=== PATIENT | male | born 1945 | race Caucasian/White ===

== ENCOUNTER 2016-12-18 10:10 | Inpatient (IN) | payer MEDICARE, BC ==
[2016-12-18 12:15] LABS: Glucose,Whole Blood 123 mg/dL (75-99)
[2016-12-18] MEDS ORDERED: MAGNESIUM OXIDE 250 MG TAB PO STA (13:14)
[2016-12-18] MEDS ORDERED: LIDOCAINE 1% INJ 10MG/ML (20 ML MDV) ONE (13:45)
[2016-12-18] MEDS ORDERED: MAGNESIUM SULFATE-D5W PMX 1 GM in DEXTROSE/WATER 1 100ML.BAG IVPB ONE (14:00)
[2016-12-18 16:36] LABS: ALT 34 U/L (21-72); AST 27 U/L (17-59); Alkaline Phosphatase 67 U/L (38-126); Anion Gap 14 mmol/L; Blood Urea Nitrogen 32 mg/dL (9-20); Calcium 9.2 mg/dL (8.4-10.2); Carbon Dioxide 29 mmol/L (22-30); Chloride 102 mmol/L (98-107); Glucose 142 mg/dL (74-99); Non-African American GFR(MDRD) >60 (>60 ml/min/1.73 sqM); Potassium 4.9 mmol/L (3.5-5.1); Sodium 145 mmol/L (137-145); Total Bilirubin 1.1 mg/dL (0.2-1.3); Total Protein 7.8 g/dL (6.3-8.2)
[2016-12-18 16:38] LABS: Basophils # (A) 0.1 k/uL (0-0.2); Basophils % (A) 1 %; CH 27.2; CHCM 29.5; Eosinophils # (A) 0.3 k/uL (0-0.7); Eosinophils % (A) 3 %; HCT 39.9 % (39.0-53.0); Hypochromasia Marked; Luc # (Auto) 0.17; Luc % (Auto) 2; Lymphocytes # (A) 1.7 k/uL (1.0-4.8); Lymphocytes % (A) 23 %; MCH 27.8 pg (25.0-35.0); MCV 92.7 fL (80.0-100.0); Mean Platelet Volume 9.3; Monocytes # (A) 0.5 k/uL (0-1.0); Monocytes % (A) 6 %; Neutrophils # (A) 4.8 k/uL (1.3-7.7); Neutrophils % (A) 65 %; RDW 15.4 % (11.5-15.5); WBC 7.4 k/uL (3.8-10.6); WBC (Perox) 7.29
[2016-12-18 17:21] LABS: Glucose,Whole Blood 100 mg/dL (75-99)
[2016-12-18] MEDS ORDERED: DOFETILIDE 500 MCG CAP PO STA (17:31)
[2016-12-18 17:41] LABS: Manual Review Performed
[2016-12-18 21:27] LABS: Glucose,Whole Blood 99 mg/dL (75-99)
[2016-12-18] MEDS: METOPROLOL TARTRATE 50 MG TAB PO SCH (21:50)
[2016-12-19] MEDS ORDERED: DOFETILIDE 500 MCG CAP PO ONE (06:00)
[2016-12-19 06:32] LABS: Glucose,Whole Blood 133 mg/dL (75-99)
[2016-12-19 06:41] LABS: Anion Gap 8 mmol/L; Blood Urea Nitrogen 28 mg/dL (9-20); Carbon Dioxide 30 mmol/L (22-30); Chloride 104 mmol/L (98-107); Glucose 130 mg/dL (74-99); Magnesium 1.8 mg/dL (1.6-2.3); Non-African American GFR(MDRD) >60 (>60 ml/min/1.73 sqM); Potassium 4.7 mmol/L (3.5-5.1); Sodium 142 mmol/L (137-145)
[2016-12-19] MEDS: ATORVASTATIN 80 MG TAB PO SCH (07:30)
[2016-12-19] MEDS: FUROSEMIDE 20 MG TAB PO SCH (07:30)
[2016-12-19] MEDS: glipiZIDE 5 MG TAB PO SCH (07:31)
[2016-12-19] MEDS: LOSARTAN 50 MG TAB PO SCH (07:31)
[2016-12-19] MEDS: RIVAROXABAN 10 MG TAB PO SCH (07:31)
[2016-12-19] MEDS ORDERED: MAGNESIUM OXIDE 250 MG TAB PO SCH (09:00)
[2016-12-19] MEDS: METOPROLOL TARTRATE 50 MG TAB PO SCH (09:54)
[2016-12-19 12:02] LABS: Glucose,Whole Blood 123 mg/dL (75-99)
[2016-12-19] MEDS ORDERED: MAGNESIUM OXIDE 250 MG TAB PO STA (13:26)
[2016-12-19] MEDS ORDERED: SPIRONOLACTONE 25 MG TAB PO SCH (13:30)
--- NOTE | 2016-12-19 14:25 | P.PN ---
Subjective Patient doing well. Complaint of tiredness and fatigue. Very frequent PVCs and ventricular couplets and nonsustained arrhythmias one episode of light torsade within 2 hours of administration of dofetilide within 2 hours of the first dose. He has had multiform nonsustained ventricular tachycardia noted Patient received 2 doses of dofetilide is QT interval still within normal limits Vitals are stable Blood pressures mildly elevated though Breath sounds are decreased bilaterally Heart sounds were slow normal but irregular Increased BMI Significant lower extremity induration Impression Symptomatic persistent atrial fibrillation with associated atrial fibrillation mediated cardio myopathy Frequent PVCs ventricular couplets and nonsustained ventricular tachycardia often polymorphic Sleep apnea, obstructive CAD status post stenting Adult-onset diabetes, hypertension, dyslipidemia Plan is to continue dofetilide and add spironolactone and increase Slow-Mag Cardioversion tomorrow morning Objective - Vital Signs Vital signs: Vital Signs Temp 97 F L 12/19/16 07:29 Pulse 70 12/19/16 11:14 Resp 17 12/19/16 11:14 BP 144/75 12/19/16 11:14 Pulse Ox 97 12/19/16 11:14 Intake & Output 12/18/16 12/19/16 12/19/16 18:59 06:59 18:59 Intake Total 240 360 Output Total 600 Balance 240 -600 360 Weight 181 kg 180.7 kg Intake: Oral 240 360 Output: Urine 600 Other: # Voids 3 - Labs CBC & Chem 7: 12/18/16 13:48 12/19/16 05:56 Labs: Abnormal Lab Results - Last 24 Hours (Table) 12/18/16 12/18/16 12/18/16 Range/Units 13:48 13:48 17:17 Hgb 12.0 L (13.0-17.5) gm/dL MCHC 30.0 L (31.0-37.0) g/dL Plt Count 98 L (150-450) k/uL BUN 32 H (9-20) mg/dL Glucose 142 H (74-99) mg/dL POC Glucose (mg/dL) 100 H (75-99) mg/dL 12/19/16 12/19/16 12/19/16 Range/Units 05:56 06:26 11:56 Hgb (13.0-17.5) gm/dL MCHC (31.0-37.0) g/dL Plt Count (150-450) k/uL BUN 28 H (9-20) mg/dL Glucose 130 H (74-99) mg/dL POC Glucose (mg/dL) 133 H 123 H (75-99) mg/dL
[2016-12-19] MEDS ORDERED: SPIRONOLACTONE 25 MG TAB PO STA (14:30)
--- NOTE | 2016-12-19 15:02 | HP ---
DATE OF ADMISSION: 12/18/2016 Armando Cooley is a 71-year-old male patient with persistent symptomatic atrial fibrillation. Patient follows with Dr. Cline and Dr. Mason. He has failed amiodarone and had an early recurrence of atrial fibrillation on 40 mg of amiodarone. He took amiodarone for a total of about 2 weeks. He also has frequent PVCs and nonsustained ventricular tachycardia which he cannot feel. He also has multiform PVCs and nonsustained multiform nonsustained VT. These are very frequent. His renal function is normal. His potassium is 4.9 at baseline. His LV function did deteriorate during atrial fibrillation, hence he was referred to me for management of atrial fibrillation. At this time, he denies any chest discomfort. He feels tired and fatigued but he does not feel any palpitations. No syncope. Past history of coronary artery disease, status post coronary stenting in 2013, he also has bilateral significant carotid atherosclerosis, bilateral carotid endarterectomy, doing sinus rhythm, his LV function is normal. REVIEW OF SYSTEMS: No fever, chills, rigors. No cough or expectoration. No nausea, vomiting or diarrhea. No hematuria, dysuria. No strokes or seizures. No skin lesions or musculoskeletal complaints. His home medications include atorvastatin 80 mg daily, metoprolol tartrate 50 mg twice daily, Cozaar 50 mg daily, levothyroxine, Lasix, flaxseed oil, fish oil, glipizide XL, and Rivaroxaban. PAST SURGERIES: Carotid endarterectomy and coronary stenting in 2013 with a vision stent. Allergies to METFORMIN, LATEX, ASPIRIN. On examination, his blood pressure on admission was 167/81 mmHg and 140/70 mmHg. Head and neck examination is normal. Heart sounds are irregular. Breath sounds are reduced bilaterally and bilateral lower extremity edema indurated and morbid obesity. BMI of 47 and obstructive sleep apnea. IMPRESSION: 1. Symptomatic atrial fibrillation, despite rate control associated with tiredness and fatigue and reduction in left ventricular function. 2. Known coronary artery disease, status post coronary stenting in 2013 for an abnormal stress test and documented disease. 3. Carotid endarterectomy. 4. Obstructive sleep apnea. 5. Morbid obesity. 6. Frequent premature ventricular contractions, multiform nonsustained ventricular tachycardia. PLAN: Start dofetilide. However, I have noticed one episode of PM VT on telemetry, within an hour or so of giving him dofetilide. He has very frequent PVCs and couplets. These are unrelated to dofetilide. SUGGEST: Initiate dofetilide as an inpatient, watch QT interval, follow protocol and watch for ventricular arrhythmias. If his LV function does not improve after maintenance of sinus rhythm, then I would consider defibrillator implantation, given the degree of ventricular arrhythmias this gentleman has. Sleep apnea treatment is also imperative for him.
[2016-12-19 17:10] LABS: Glucose,Whole Blood 97 mg/dL (75-99)
[2016-12-19] MEDS: INSULIN LISPRO (humaLOG) 300 UNIT/3 ML VIAL SQ SCH ×2 (17:10→22:51)
[2016-12-19] MEDS: SODIUM CHLORIDE 0.9% 1,000 ML IV SCH (17:12)
[2016-12-19] MEDS ORDERED: DOFETILIDE 250 MCG CAP PO ONE (18:00)
[2016-12-19] MEDS ORDERED: POTASSIUM CHLORIDE ER 20 MEQ TAB.ER PO STA (19:06)
[2016-12-19] MEDS ORDERED: ACTIVATED CHARCOAL 50 GM/240 ML BOTTLE PO STA (19:09)
[2016-12-19 19:11] LABS: Hemoglobin A1C 6.5 % (4.2-6.1)
[2016-12-19] MEDS ORDERED: MAGNESIUM SULFATE-D5W PMX 1 GM in DEXTROSE/WATER 1 100ML.BAG IVPB ONE (19:25)
--- NOTE | 2016-12-19 19:38 | XR ---
EXAMINATION TYPE: XR abdomen 1V DATE OF EXAM: 12/19/2016 7:32 PM COMPARISON: NONE HISTORY: NG tube placement. TECHNIQUE: Single view FINDINGS: There is a nasogastric tube looped in the fundus of the stomach. Bowel gas pattern is celso l. Lung bases are clear. There is no sign of free air. IMPRESSION: Nasogastric tube appears in good position.
[2016-12-19] MEDS: MAGNESIUM SULFATE-D5W PMX 1 GM in DEXTROSE/WATER 1 100ML.BAG IVPB SCH ×2 (19:39→19:48)
[2016-12-19 20:48] LABS: Glucose,Whole Blood 212 mg/dL (75-99)
[2016-12-20 06:04] LABS: Glucose,Whole Blood 120 mg/dL (75-99)
[2016-12-20] MEDS: ACETAMINOPHEN TAB 325 MG TAB PO PRN ×4 (06:37→21:04)
[2016-12-20 06:42] LABS: Anion Gap 9 mmol/L; Blood Urea Nitrogen 22 mg/dL (9-20); Calcium 8.8 mg/dL (8.4-10.2); Carbon Dioxide 31 mmol/L (22-30); Chloride 101 mmol/L (98-107); Glucose 117 mg/dL (74-99); Magnesium 2.1 mg/dL (1.6-2.3); Non-African American GFR(MDRD) >60 (>60 ml/min/1.73 sqM); Potassium 4.6 mmol/L (3.5-5.1); Sodium 141 mmol/L (137-145)
[2016-12-20] MEDS: MAGNESIUM SULFATE-D5W PMX 1 GM in DEXTROSE/WATER 1 100ML.BAG IVPB SCH ×2 (08:01→08:02)
[2016-12-20] MEDS: METOPROLOL SUCCINATE (ER) 50 MG TAB.ER.24H PO SCH ×3 (08:01→21:05)
[2016-12-20] MEDS: INSULIN LISPRO (humaLOG) 300 UNIT/3 ML VIAL SQ SCH ×4 (08:08→21:05)
[2016-12-20] MEDS: ATORVASTATIN 80 MG TAB PO SCH (08:14)
[2016-12-20] MEDS: FUROSEMIDE 20 MG TAB PO SCH (08:14)
[2016-12-20] MEDS: glipiZIDE 5 MG TAB PO SCH (08:14)
[2016-12-20] MEDS: MAGNESIUM OXIDE 250 MG TAB PO SCH (08:15)
[2016-12-20] MEDS: LOSARTAN 50 MG TAB PO SCH (08:15)
[2016-12-20] MEDS: RIVAROXABAN 10 MG TAB PO SCH (08:15)
[2016-12-20] MEDS: SPIRONOLACTONE 25 MG TAB PO SCH (08:16)
[2016-12-20 12:07] LABS: Glucose,Whole Blood 115 mg/dL (75-99)
[2016-12-20] MEDS ORDERED: MAGNESIUM HYDROXIDE 2,400 MG/10 ML CUP PO PRN (14:25)
[2016-12-20 16:51] LABS: Glucose,Whole Blood 98 mg/dL (75-99)
[2016-12-20] MEDS: SODIUM CHLORIDE 0.9% 1,000 ML IV SCH (17:25)
--- NOTE | 2016-12-20 20:38 | PN ---
Armando Cooley is doing a lot better today. He has no runs of nonsustained torsade. Last evening with an ( ) of the dose of dofetelide he started experiencing very frequent runs of nonsustained torsade but had no symptoms. He was given 4 mg of magnesium. I placed an NG tube and gave him activated charcoal and within a period of 3 hours, his ectopy started to lessen. At no point did he have any syncope. We never had to cardiovert him and we never had to defibrillate him either. He was asymptomatic despite very frequent ventricular ectopy. Today on examination, he resting comfortably in a chair. His pulse rate is about 90 beats a minute. Afebrile. Normal respirations, blood pressure 109/52 millimeters Hg. Telemetry he continues to show PVCs, ventricular couplets which he has had prior to coming in. Breath sounds are reduced bilaterally. Heart sounds S1, S2 are irregular with ( ) and lower extremity edema is noted. IMPRESSION: 1. Symptomatic atrial fibrillation. 2. Cardiomyopathy, atrial fibrillation related. 3. Very frequent ventricular ectopy prior to starting Tikosyn. 4. Tikosyn induced torsade, nonsustained, requiring discontinuation of Tikosyn. PLAN: He is not a candidate for either sotalol or dofetelide. His clearly was worried about his ventricular ectopy and stated that ventricular ectopy scared her more than the atrial fibrillation. I completely concur with her opinion. He has very frequent ventricular ectopy and multiform PVCs and nonsustained runs unrelated to Tikosyn. I will obtain a 2-D echo and Doppler with Defility contrast to reassess his LV function and I have already changed him to metoprolol succinate 50 mg twice daily and Rivaroxaban. We will continue spironolactone, continue losartan and continue low-dose Lasix. SUGGEST: 1. Regarding his atrial fibrillation, one may consider atrial fibrillation but the success rate in the setting of morbid obesity and severe obstructive sleep apnea, that is there is history of sleep apnea is very low. 2. Management of ventricular ectopy and consideration for the PVC ablation. Tomorrow I will reassess his PVCs to see how many PVC morphology he actually has before making the decision. Clearly ( ) the usual risks vascular access is clearly going to be an issue in this gentleman. 3. Decision regarding defibrillator therapy.
[2016-12-20 20:51] LABS: Glucose,Whole Blood 170 mg/dL (75-99)
[2016-12-21 06:31] LABS: Glucose,Whole Blood 130 mg/dL (75-99)
[2016-12-21] MEDS: INSULIN LISPRO (humaLOG) 300 UNIT/3 ML VIAL SQ SCH ×4 (06:38→20:31)
[2016-12-21] MEDS: ACETAMINOPHEN TAB 325 MG TAB PO PRN ×2 (06:45→16:12)
[2016-12-21] MEDS: glipiZIDE 5 MG TAB PO SCH (06:46)
[2016-12-21 06:49] LABS: Anion Gap 10 mmol/L; Blood Urea Nitrogen 21 mg/dL (9-20); Calcium 8.8 mg/dL (8.4-10.2); Carbon Dioxide 29 mmol/L (22-30); Chloride 103 mmol/L (98-107); Glucose 136 mg/dL (74-99); Non-African American GFR(MDRD) >60 (>60 ml/min/1.73 sqM); Potassium 5.1 mmol/L (3.5-5.1); Sodium 142 mmol/L (137-145)
[2016-12-21] MEDS: FUROSEMIDE 20 MG TAB PO SCH (08:32)
[2016-12-21] MEDS: ATORVASTATIN 80 MG TAB PO SCH (08:32)
[2016-12-21] MEDS: LOSARTAN 50 MG TAB PO SCH ×2 (08:32→20:40)
[2016-12-21] MEDS: METOPROLOL SUCCINATE (ER) 50 MG TAB.ER.24H PO SCH ×2 (08:33→20:40)
[2016-12-21] MEDS: MAGNESIUM OXIDE 250 MG TAB PO SCH (08:33)
[2016-12-21] MEDS: RIVAROXABAN 10 MG TAB PO SCH (08:33)
[2016-12-21] MEDS: SPIRONOLACTONE 25 MG TAB PO SCH (08:34)
--- NOTE | 2016-12-21 10:55 | ECHOF ---
Referral Reason:cardiomyopathy MEASUREMENTS -------- HEIGHT: 195.6 cm WEIGHT: 181.4 kg BP: 136/70 RVIDd: 3.6 cm (< 3.3) IVSd: 1.5 cm (0.6 - 1.1) LVIDd: 4.3 cm (3.9 - 5.3) LVPWd: 1.5 cm (0.6 - 1.1) IVSs: 1.9 cm LVIDs: 3.6 cm LVPWs: 1.9 cm LA Diam: 4.0 cm (2.7 - 3.8) LAESV Index (A-L): 37.03 ml/m Ao Diam: 3.3 cm (2.0 - 3.7) AV Cusp: 2.6 cm (1.5 - 2.6) MV EXCURSION: 21.020 mm (> 18.000) MV EF SLOPE: 112 mm/s (70 - 150) EPSS: 0.6 cm AV maxP.81 mmHg AV meanP.01 mmHg RAP: 15.00 mmHg RVSP: 63.03 mmHg FINDINGS -------- Atrial fibrillation. This was a technically difficult study with suboptimal views. The left ventricular size is normal. There is moderate concentric left ventricular hypertrophy. Overall left ventricular systolic function is low-normal with, an EF between 50 - 55 %. The right ventricle is mildly enlarged. LA is moderately dilated 34-39 ml/m2 The right atrium is normal in size. 1.5mg of Definity was utilized for enhancement of images Aortic valve is trileaflet and is mildly thickened. There is mild aortic stenosis present. Peak/mean gradient across the Aortic Valve is 15.81mmHg / 8.01mmHg. Mild mitral annular calcification present. Mild tricuspid regurgitation present. There is severe pulmonary hypertension. The right ventricular systolic pressure, as measured by Doppler, is 63.03mmHg. Trace/mild (physiologic) pulmonic regurgitation. The aortic root size is normal. The inferior vena cava is dilated with no significant inspiratory collapse which is consistent estimated right atrial pressure of >15 mmHg. There is no pericardial effusion. CONCLUSIONS -------- 1. Atrial fibrillation. 2. Aortic valve is trileaflet and is mildly thickened. 3. There is mild aortic stenosis present. 4. Peak/mean gradient across the Aortic Valve is 15.81mmHg / 8.01mmHg. 5. Mild mitral annular calcification present. 6. Mild tricuspid regurgitation present. 7. There is severe pulmonary hypertension. 8. The right ventricular systolic pressure, as measured by Doppler, is 63.03mmHg. 9. Trace/mild (physiologic) pulmonic regurgitation. 10. The aortic root size is normal. 11. The inferior vena cava is dilated with no significant inspiratory collapse which is consistent estimated right atrial pressure of >20 mmHg. 12. This was a technically difficult study with suboptimal views. 13. There is no pericardial effusion. 14. The left ventricular size is normal. 15. There is moderate concentric left ventricular hypertrophy. 16. Overall left ventricular systolic function is low-normal with, an EF between 50 - 55 %. 17. The right ventricle is mildly enlarged. 18. LA is moderately dilated 34-39 ml/m2 19. The right atrium is normal in size. 20. 1.5mg of Definity was utilized for enhancement of images ASSOCIATE BROKER: Lucia Brown RDCS
[2016-12-21 11:58] LABS: Glucose,Whole Blood 103 mg/dL (75-99)
--- NOTE | 2016-12-21 15:47 | P.PN ---
Subjective Principal diagnosis: Symptomatic persistent atrial fibrillation Patient admitted to the hospital with symptomatic persistent atrial fibrillation , was noted to have frequent PVCs as well as nonsustained ventricular tachycardia on the monitor, often polymorphic. Tikosyn was discontinued. Patient has a known history of hypertension, diabetes, hyperlipidemia, prior stent placement. For the past 24 hours there is been no further arrhythmias noted on the monitor. Patient is currently on Lipitor 80 mg daily, Lasix 20 mg daily, losartan 50 mg one tablet by mouth twice a day, magnesium once daily, metoprolol tartrate 50 twice a day, Xarelto 20 mg daily and Aldactone 50 mg daily. Blood pressure today 140/70 heart rate in the 60s. Objective - Vital Signs Vital signs: Vital Signs Temp 97.0 F L 12/21/16 04:00 Pulse 64 12/21/16 12:00 Resp 16 12/21/16 15:24 BP 140/70 12/21/16 12:00 Pulse Ox 97 12/21/16 12:00 Intake & Output 12/20/16 12/21/16 12/21/16 18:59 06:59 18:59 Intake Total 120 Output Total 500 800 Balance -380 -800 Weight 179.3 kg Intake: Oral 120 Output: Urine 500 800 Other: Voiding Method Toilet Toilet Urinal Urinal # Voids 2 1 - Exam PHYSICAL EXAMINATION: HEENT: Head is atraumatic, normocephalic. Pupils equal, round. Neck is supple. There is no elevated jugular venous pressure. HEART EXAMINATION: Heart S1, S2 normal. No murmur or gallop heard. CHEST EXAMINATION: Lungs are clear to auscultation and precussion. No chest wall tenderness is noted on palpation or with deep breathing. ABDOMEN: Soft, nontender. Bowel sounds are heard. No organomegaly noted. EXTREMITIES: 2+ peripheral pulses with no evidence of peripheral edema and no calf tenderness noted. NEUROLOGIC patient is awake, alert and oriented -3. . - Labs CBC & Chem 7: 12/18/16 13:48 12/21/16 06:17 Labs: Abnormal Lab Results - Last 24 Hours (Table) 12/20/16 12/21/16 12/21/16 Range/Units 20:35 06:17 06:26 BUN 21 H (9-20) mg/dL Glucose 136 H (74-99) mg/dL POC Glucose (mg/dL) 170 H 130 H (75-99) mg/dL 12/21/16 Range/Units 11:55 BUN (9-20) mg/dL Glucose (74-99) mg/dL POC Glucose (mg/dL) 103 H (75-99) mg/dL Assessment and Plan Plan: From cardiology's perspective we will continue the patient on his current medications. Continue anticoagulation. Once patient is discharged to have an outpatient stress test, possible PVC ablation. We will also repeat an echocardiogram with Doppler study with Definity. Continue to monitor for any further arrhythmias. DNP note has been reviewed, I agree with a documented findings and plan of care. Patient was seen and examined.
[2016-12-21 16:51] LABS: Glucose,Whole Blood 90 mg/dL (75-99)
[2016-12-21] MEDS: SODIUM CHLORIDE 0.9% 1,000 ML IV SCH (17:23)
[2016-12-21 20:29] LABS: Glucose,Whole Blood 127 mg/dL (75-99)
[2016-12-22 04:29] VITALS: TEMP 96.9
[2016-12-22 06:12] LABS: Glucose,Whole Blood 135 mg/dL (75-99)
[2016-12-22] MEDS: glipiZIDE 5 MG TAB PO SCH (06:45)
[2016-12-22] MEDS: INSULIN LISPRO (humaLOG) 300 UNIT/3 ML VIAL SQ SCH (06:46)
[2016-12-22 07:12] LABS: Anion Gap 10 mmol/L; Blood Urea Nitrogen 21 mg/dL (9-20); Calcium 9.1 mg/dL (8.4-10.2); Carbon Dioxide 31 mmol/L (22-30); Chloride 101 mmol/L (98-107); Glucose 134 mg/dL (74-99); Magnesium 1.9 mg/dL (1.6-2.3); Non-African American GFR(MDRD) >60 (>60 ml/min/1.73 sqM); Potassium 4.7 mmol/L (3.5-5.1); Sodium 142 mmol/L (137-145)
[2016-12-22] MEDS: ATORVASTATIN 80 MG TAB PO SCH (08:48)
[2016-12-22] MEDS: LOSARTAN 50 MG TAB PO SCH (08:48)
[2016-12-22] MEDS: FUROSEMIDE 20 MG TAB PO SCH (08:48)
[2016-12-22] MEDS: METOPROLOL SUCCINATE (ER) 50 MG TAB.ER.24H PO SCH (08:49)
[2016-12-22] MEDS: MAGNESIUM OXIDE 250 MG TAB PO SCH (08:49)
[2016-12-22] MEDS: SPIRONOLACTONE 25 MG TAB PO SCH (08:50)
[2016-12-22] MEDS: RIVAROXABAN 10 MG TAB PO SCH (08:50)
--- NOTE | 2016-12-22 09:57 | P.PN ---
Subjective Principal diagnosis: Symptomatic persistent atrial fibrillation This is a pleasant 71-year-old gentleman admitted to the hospital symptomatic persistent atrial fibrillation, was noted to have frequent PVCs as well as runs of nonsustained ventricular tachycardia on the monitor, often polymorphic. Tikosyn was discontinued. She has a known history of hypertension, diabetes, hyperlipidemia and prior stent placement. For the last 24-48 hours there have been no further episodes of polymorphic VT. Patient is currently on Lipitor 80 mg daily, Lasix 20 mg daily, losartan 50 mg twice a day, magnesium daily, metoprolol titrate 50 mg twice a day, Aldactone 50 mg daily and Xarelto 3 mg daily. She denies blood pressure has remained in the 130s to 140s over 60s and his heart rate has been in the 60s. He underwent echocardiogram yesterday that showed an ejection fraction of 50-55%. Upon examination this morning, patient is sitting up in a period he verbalizes not sleeping well. He feels that the Tikosyn is still in his system as he feels "wired". Objective - Vital Signs Vital signs: Vital Signs Temp 96.9 F L 12/22/16 04:00 Pulse 63 12/22/16 04:00 Resp 18 12/22/16 04:00 BP 133/61 12/22/16 04:00 Pulse Ox 93 L 12/22/16 04:00 Intake & Output 12/21/16 12/22/16 12/22/16 18:59 06:59 18:59 Intake Total 200 Output Total 800 Balance -600 Weight 178.6 kg Intake: Oral 200 Output: Urine 800 Other: Voiding Method Toilet Toilet Urinal Urinal # Voids 1 - Exam PHYSICAL EXAMINATION: HEENT: Head is atraumatic, normocephalic. Pupils equal, round. Neck is supple. There is no elevated jugular venous pressure. HEART EXAMINATION: Heart sounds irregularly irregular, S1 and S2 normal. No murmur or gallop heard. CHEST EXAMINATION: Lungs are clear to auscultation and precussion. No chest wall tenderness is noted on palpation or with deep breathing. ABDOMEN: Soft, obese, nontender. Bowel sounds are heard. No organomegaly noted. EXTREMITIES: 2+ peripheral pulses with evidence of 1+ peripheral edema and no calf tenderness noted. NEUROLOGIC patient is awake, alert and oriented x3. . - Labs CBC & Chem 7: 12/18/16 13:48 12/22/16 06:19 Labs: Abnormal Lab Results - Last 24 Hours (Table) 12/21/16 12/21/16 12/22/16 Range/Units 11:55 20:25 06:03 Carbon Dioxide (22-30) mmol/L BUN (9-20) mg/dL Glucose (74-99) mg/dL POC Glucose (mg/dL) 103 H 127 H 135 H (75-99) mg/dL 12/22/16 Range/Units 06:19 Carbon Dioxide 31 H (22-30) mmol/L BUN 21 H (9-20) mg/dL Glucose 134 H (74-99) mg/dL POC Glucose (mg/dL) (75-99) mg/dL Assessment and Plan Plan: Assessment and plan #1 symptomatic persistent atrial fibrillation #2 polymorphic nonsustained VT on Tikosyn #3 hypertension #4 diabetes #5 sleep apnea, with CPAP From bookmaker's clerk perspective, we will continue the patient on his current medications. Continue anticoagulation. Patient likely to be discharged home today. He will undergo an outpatient Lexiscan Cardiolite stress test and follow -up with Dr. Cline. PVC ablation to be scheduled in the future. STONE REPAIRER note has been reviewed, I agree with a documented findings and plan of care. Patient was seen and examined.
[2016-12-22 10:41] VITALS: BP 148/80; PULSE 70; RESP 16
--- NOTE | 2016-12-22 11:24 | DS ---
Mr. Armando Cooley is a 71-year-old male patient with morbid obesity with a BMI greater than 46 who has persistent atrial fibrillation and comes in with tiredness and fatigue. He was brought in for dofetilide initiation. His renal function is normal. Creatinine clearance was normal. However, despite the QT interval being within normal limits, he had short runs of torsade and dofetilide was stopped. Activated charcoal was administered. IV magnesium was administered. He has never suffered any cardiac event, but he did have short bursts of torsade and therefore he should not be on dofetilide nor should he ever be on sotalol. It has been over 48 hours since his last dose of dofetilide and he is doing very well. He states he feels wired after starting dofetilide. Otherwise he remains obvious in A.fib. His rates are very well controlled. His blood pressure is still elevated and therefore today I increased the losartan to 50 mg twice daily. Head and neck examination is normal. Heart sounds are irregular but normal. Lungs have decreased breath sounds. He has nonpitting brawny edema. He underwent a 2-D echo with Definity contrast and this showed a right ventricular systolic pressure of 63 mmHg, mild aortic stenosis and a preserved LV systolic function and the left atrium is moderately dilated. LV function is 50% to 55%, the low normal range with moderate LVH. IMPRESSION: 1. Morbid obesity. 2. Persistent atrial fibrillation. 3. Very frequent PVCs of 2 different morphologies , very high PVC burden. He also has nonsustained VT even before dofetilide was started. These are quite frequent. 4. Hypertension. 5. Left ventricular hypertrophy, low normal left ventricular function. 6. Known coronary artery disease. 7. Elevated right ventricular systolic pressures. 8. Obstructive sleep apnea. SUGGEST: 1. The patient was encouraged to use a CPAP mask. 2. For hypertension, the dose of losartan was increased to 50 mg twice daily. 3. Spironolactone, will continue at 50 mg a day. His potassium has been stable. 4. Rate control and anticoagulation for atrial fibrillation. Xarelto will continue. 5. He will see Dr. Cline within 3 to 4 weeks and possibly an outpatient stress test. 6. I have suggested ablation for PVC and nonsustained VT. There are 3 distinct PVC morphology populations. Two are very frequent. They all have a right bundle branch block morphology. The more frequent one has a right bundle morphology with notching just beyond the peak in lead V1, rS pattern in lead I, and upright in 3 and aVF and an rS pattern in V6. The second one has a very similar access, but the morphology is slightly different. The third PVC morphology is much narrower, but again the access is very, very similar. Obviously for a PVC, VT ablation is apart from the risk of cardiac puncture and tamponade and vascular access is definitely an issue here because of his obesity and he may have peripheral vascular disease, but he states that he has had angiograms before and hopefully he does not have any a critical stenosis which will preclude LV axis. He may go home today and follow with Dr. Cline within 4 weeks. I will schedule the VT ablation for him.
[2016-12-22 11:52] LABS: Glucose,Whole Blood 76 mg/dL (75-99)
== END 2016-12-22 13:30 | disposition home or self-care (01) | DRG 309 ==
LOC: 2CATHESU 11:04 → 6SEL 16:08
PROVIDERS: ADMIT Internal Medicine Clinical Cardiac Electrophysiology; ATTEND Internal Medicine Clinical Cardiac Electrophysiology
DX: I48.1 Persistent atrial fibrillation (principal); Z68.42 Body mass index [BMI] 45.0-49.9, adult; I47.2 Ventricular tachycardia; I42.9 Cardiomyopathy, unspecified; E66.01 Morbid (severe) obesity due to excess calories; I10 Essential (primary) hypertension; E11.9 Type 2 diabetes mellitus without complications; E78.5 Hyperlipidemia, unspecified; G47.33 Obstructive sleep apnea (adult) (pediatric); I25.10 Atherosclerotic heart disease of native coronary artery without angina pectoris; I35.0 Nonrheumatic aortic (valve) stenosis; I45.10 Unspecified right bundle-branch block; Z79.01 Long term (current) use of anticoagulants; Z95.5 Presence of coronary angioplasty implant and graft
CPT/HCPCS: 74000; 80048; 80053; 83036; 83735; 83880; 84443; 85025; 93005; 93306; 94660

== ENCOUNTER → 2017-01-16 | Outpatient (CLI) | payer MEDICARE, BC ==
--- NOTE | 2017-01-16 21:10 | PN ---
Armando has severe obstructive sleep apnea with an AHI of 78. He also has multiple other comorbidities, including coronary artery disease, chronic atrial fibrillation, peripheral vascular disease, diabetes mellitus and hyperlipidemia. I am seeing him for CPAP compliancy data. Unfortunately, his compliancy has not been optimal. He has been averaging less than 4 hours per night. He has used his CPAP only 21 out of 27 days and he is having excessive leaks around the nose mask, which is a Mirage FX type. The patient is being treated with a CPAP pressure of 13 cm of water with a C-Flex of 3. Humidity has been shut off, knowing that the patient was having excessive nasal congestion through his nose. He is coming in for further advice. He is willing to use it as long as the treatment becomes much more comfortable compared to what it is right now. BP is 145/60, pulse 90, respirations 20, temperature is 97.5, saturation is 93% on room air and weight is 396. GENERAL APPEARANCE: Calm, comfortable. HEENT: Short neck, crowding of the posterior pharynx. There is no goiter, neck mass. LUNGS: Diminished breath sounds bilaterally, otherwise clear. HEART: Sounds are regular rate and rhythm. Normal S1, S2. ABDOMEN: Soft, nontender. No organomegaly. EXTREMITIES: No edema. No cyanosis or clubbing. IMPRESSION: 1. Symptomatic obstructive sleep apnea, severe, with an apnea-hypopnea index of 78. Continuous positive airway pressure compliancy has been suboptimal and poor for the above-mentioned reasons. 2. Severe nocturnal oxygen desaturation secondary to obstructive sleep apnea. 3. Severe sleep fragmentation secondary to obstructive sleep apnea. 4. Hypersomnia with an [place] score of 9. 5. Morbid obesity. 6. Coronary artery disease. 7. Chronic atrial fibrillation. 8. Peripheral vascular disease. 9. Diabetes mellitus. 10. Hyperlipidemia. PLAN: 1. Will provide this patient an AirFit N10 nose mask. 2. Keep the humidity turned off. 3. Give the patient heated tubing and lower the climate control to a temperature of 62 degrees Fahrenheit. 4. Apply Flonase if he continues to have nasal congestion. 5. Encourage becoming more compliant with CPAP therapy and I see the patient in followup in 2 months' time.
== END | disposition home or self-care (01) ==
LOC: SLEEP 16:24
PROVIDERS: ATTEND Internal Medicine Critical Care Medicine
DX: G47.33 Obstructive sleep apnea (adult) (pediatric) (principal); G47.10 Hypersomnia, unspecified; E66.01 Morbid (severe) obesity due to excess calories; I25.10 Atherosclerotic heart disease of native coronary artery without angina pectoris; I48.2 Chronic atrial fibrillation; I73.9 Peripheral vascular disease, unspecified; E11.9 Type 2 diabetes mellitus without complications; E78.5 Hyperlipidemia, unspecified

== ENCOUNTER → 2017-03-13 | Outpatient (CLI) | payer MEDICARE, BC ==
--- NOTE | 2017-03-13 20:26 | PN ---
I am seeing Armando in follow-up at the sleep center. He has severe obstructive sleep apnea and an AHI of 78. I will treat him with CPAP pressure of 13 cm of water. He has multiple medical problems and comorbidities including coronary disease, chronic atrial fibrillation, peripheral vascular disease, diabetes mellitus and hyperlipidemia. As such, it is very important for this patient to wear his CPAP machine. I have made multiple adjustments on his mask and his face, turned the humidity off, and tried to treat his nasal congestion with Flonase. I dropped off his tube temperature down to 62 degrees Fahrenheit. On today's evaluation, the patient does not seem to have used his CPAP at all. His compliancy is down to minimal use as the patient has used it only for a few days. He tells me that temperature of the air blowing into his airway is cold and he has been feeling cold throughout the night and he has been unable to use it. He is requesting for further adjustments. His current vitals are as follows: His temperature is 97.8, pulse is 70, respiration 20. BMI is 50, blood pressure 162/89, saturation 90% on room air. Weight is 412. GENERAL APPEARANCE: Obese, calm, comfortable. HEENT: Short neck, crowding posterior pharynx. LUNGS: Clear to auscultation. HEART: Sounds are regular rate and rhythm. Normal S1, S2. No S3, no S4. No murmurs. ABDOMEN: Soft, nontender. No organomegaly. EXTREMITIES: No edema. No cyanosis or clubbing. IMPRESSION: 1. Severe symptomatic obstructive sleep apnea on an AHI of 78. 2. Poor tolerability and compliance with CPAP therapy. 3. Severe nocturnal oxygen desaturation secondary to obstructive sleep apnea. 4. Chronic hypersomnia. 5. Severe sleep fragmentation. 6. Morbid obesity. 7. Coronary artery disease. 8. Chronic atrial fibrillation. 9. Peripheral vascular disease. 10. Diabetes mellitus. 11. Hyperlipidemia. PLAN: 1. I fitted this patient today with a [employer] nasal mask. 2. Added to 2 of humidity. 3. Increase temperature of the tubing up to 84 degrees Fahrenheit. 4. Continue Flonase. 5. See me back in 3 months' time in follow-up. I am hoping that the compliance will ultimately improve. I spent at least 20 minutes counseling this patient on the importance of CPAP use and the importance of being compliant with the treatment. He will see me back in 3 months' time in follow-up.
== END | disposition home or self-care (01) ==
LOC: SLEEP 16:27
PROVIDERS: ATTEND Internal Medicine Critical Care Medicine
DX: G47.33 Obstructive sleep apnea (adult) (pediatric) (principal); Z91.19 Patient's noncompliance with other medical treatment and regimen; G47.13 Recurrent hypersomnia; E66.01 Morbid (severe) obesity due to excess calories; I25.10 Atherosclerotic heart disease of native coronary artery without angina pectoris; I48.2 Chronic atrial fibrillation; I73.9 Peripheral vascular disease, unspecified; E11.9 Type 2 diabetes mellitus without complications; E78.5 Hyperlipidemia, unspecified; Z68.43 Body mass index [BMI] 50.0-59.9, adult

== ENCOUNTER → 2017-04-06 | Outpatient (CLI) | payer MEDICARE, BC ==
[2017-04-06 13:52] LABS: CH 28.3; CHCM 29.5; HCT 36.6 % (39.0-53.0); HDW 2.56; HGB 11.1 gm/dL (13.0-17.5); Hypochromasia Marked; MCH 29.2 pg (25.0-35.0); MCHC 30.2 g/dL (31.0-37.0); MCV 96.7 fL (80.0-100.0); Mean Platelet Volume 9.4; RBC 3.78 m/uL (4.30-5.90); RDW 15.7 % (11.5-15.5); WBC 6.6 k/uL (3.8-10.6)
[2017-04-06 14:14] LABS: Anion Gap 8 mmol/L; Blood Urea Nitrogen 29 mg/dL (9-20); Calcium 9.4 mg/dL (8.4-10.2); Carbon Dioxide 32 mmol/L (22-30); Chloride 104 mmol/L (98-107); Glucose 91 mg/dL (74-99); Non-African American GFR(MDRD) 55 (>60 ml/min/1.73 sqM); Potassium 5.2 mmol/L (3.5-5.1); Sodium 144 mmol/L (137-145)
== END | disposition home or self-care (01) ==
LOC: RADCTMAIN 12:59
PROVIDERS: ATTEND Internal Medicine Clinical Cardiac Electrophysiology
DX: I48.2 Chronic atrial fibrillation (principal); I47.2 Ventricular tachycardia; I49.3 Ventricular premature depolarization; I73.9 Peripheral vascular disease, unspecified
CPT/HCPCS: 80048; 85027

== ENCOUNTER → 2017-04-11 | Outpatient (CLI) | payer MEDICARE, BC ==
[2017-04-11 12:50] LABS: Blood Urea Nitrogen 30 mg/dL (9-20); Non-African American GFR(MDRD) >60 (>60 ml/min/1.73 sqM)
--- NOTE | 2017-04-11 16:39 | CT ---
EXAMINATION TYPE: CT angio abd aorta wo/w con DATE OF EXAM: 04/11/2017 2:22 PM COMPARISON: NONE INDICATION: Peripheral vascular disease, pre ablation DLP: 2506.2 mGycm, Automated exposure control for dose reduction was used. CONTRAST: 125 mL of Omnipaque 350. TECHNIQUE: Axial images were obtained from above the diaphragm to the pubic rami in the axial plane a t 5 mm thick sections. Three-D reconstructed images performed separately by the technologist on the [employer] computer are reviewed. FINDINGS: Vascular calcification is within the aorta. Aorta tapers normally through its visualized course to th e bifurcation. The bifurcation is patent. Common iliac internal and external iliac vessels are patent . Common femoral arteries appear normal. Profunda femoris and superficial femoral arteries are patent. Popliteal arteries are identified with contrast. Beam hardening artifact at the level of the bilateral knees (adequate evaluation of the arterial syst em to this region Trifurcation vessels appear to be patent. Anterior and posterior tibial arteries to the level of the ankle. Be present bilaterally. Multiple collateral vessels also appear to be present within the lower extremities. CT ABDOMEN: Ascites is present adjacent to liver and spleen. Pancreas is atrophic. Gallbladder is unr emarkable. Vascular calcifications within the aorta. Inferior vena cava is unremarkable. Loops of bow el are unremarkable. CT PELVIS: Urinary bladder is decompressed. Loops of bowel within the pelvis. Unremarkable. Minimal f ree fluid is within the pelvis. IMPRESSIONS: 1. Limitation at the level of the knees due to bilateral knee prostheses. 2. Normal aorta. 3. Multiple collateral vessels within the calf region suggestive for severe stenosis or occlusion of trifurcation vessels. The anterior and posterior tibial arteries appear to be present and patent bila terally although delineation of the origins cannot be artifact.
== END | disposition home or self-care (01) ==
LOC: RADCTMAIN 12:12
PROVIDERS: ATTEND Internal Medicine Clinical Cardiac Electrophysiology
DX: I73.9 Peripheral vascular disease, unspecified (principal); Z96.653 Presence of artificial knee joint, bilateral
CPT/HCPCS: 82565; 84520; 75635; 36415; Q9967

== ENCOUNTER 2017-04-23 13:52 | Inpatient (IN) | payer MEDICARE, BC ==
[2017-04-23] MEDS ORDERED: IV VANCOMYCIN PER PHARMACY 1 EACH MISC MISCELLANE PRN (14:21)
[2017-04-23] MEDS ORDERED: PIPERACILLIN-TAZOBACTAM 3.375 GM in DEXTROSE/WATER 1 50ML.BAG IVPB STA (14:23)
--- NOTE | 2017-04-23 14:23 | ED ---
General Adult HPI - General Chief complaint: Extremity Problem,Nontraumatic Stated complaint: Leg Pain Time Seen by Provider: 04/23/17 14:05 Source: patient, RN notes reviewed Mode of arrival: ambulatory Limitations: no limitations - History of Present Illness Initial comments: This is a 71-year-old male who presents emergency Department complaining of left leg swelling redness warmth since today. Patient had a CAT scan on the anterior aspect of the left leg a month ago and they have been being treated for it over that month but today all of a sudden his leg became much more swollen and erythematous and warm. Patient also spiked a low-grade fever. Patient denies any chest pain or difficulty breathing. Patient denies any lightheadedness or dizziness. Patient denies abdominal pain patient denies nausea vomiting diarrhea. Patient denies any trauma of the leg recently. - Related Data Home Medications Medication Instructions Recorded Confirmed Atorvastatin [Lipitor] 80 mg PO QAM 04/07/14 04/23/17 Fish Oil/Dha/Epa [Fish Oil 1,200 1 cap PO QAM 08/18/16 04/23/17 mg Fish Oil] Flaxseed Oil [Revere-3 Flaxseed Oil] 1,000 mg PO QAM 08/18/16 04/23/17 Levothyroxine Sodium [Synthroid] 175 mcg PO QAM 08/18/16 04/23/17 Rivaroxaban [Xarelto] 20 mg PO QAM 08/18/16 04/23/17 Metoprolol Tartrate [Lopressor] 50 mg PO BID 12/18/16 04/23/17 glipiZIDE XL [Glucotrol XL] 5 mg PO QAM 12/18/16 04/23/17 Albuterol Inhaler [Ventolin Hfa 1 - 2 puff INHALATION RT-Q6H PRN 04/23/17 Inhaler] Furosemide [Lasix] 10 mg PO DAILY@119904/23/17 04/23/17 Nitroglycerin Sl Tabs [Nitrostat] 0.4 mg SUBLINGUAL Q5M PRN 04/23/17 04/23/17 Spironolactone [Aldactone] 25 mg PO DAILY@119904/23/17 04/23/17 diphenhydrAMINE HCL [Benadryl] 25 mg PO Q4H PRN 04/23/17 04/23/17 predniSONE 10 mg PO BID PRN 04/23/17 04/23/17 traMADol HCL [Ultram] 50 mg PO TID PRN 04/23/17 04/23/17 Previous Rx's Medication Instructions Recorded Losartan [Cozaar] 50 mg PO BID tab 12/22/16 Allergies Allergy/AdvReac Type Severity Reaction Status Date / Time metformin HCl Allergy Unknown Rash/Hives Verified 04/23/17 14:59 [From Glucophage] adhesive tape Allergy Rash/Hives Verified 04/23/17 14:56 banana [Banana] Allergy Rash/Hives Verified 04/23/17 14:59 cheese Allergy Rash/Hives Verified 04/23/17 14:59 codeine Allergy Rash/Hives Verified 04/23/17 14:59 latex Allergy Rash/Hives Verified 04/23/17 14:59 NSAIDS (Non-Steroidal Allergy Rash/Hives Verified 04/23/17 14:59 Anti-Inflamma dofetilide [From Tikosyn] AdvReac Severe Torsades Verified 04/23/17 14:59 de Pointes YOGURT AdvReac Itching Uncoded 09/19/16 08:10 Review of Systems ROS Statement: Those systems with pertinent positive or pertinent negative responses have been documented in the HPI. ROS Other: All systems not noted in ROS Statement are negative. Past Medical History Past Medical History: Atrial Fibrillation, Coronary Artery Disease (CAD), Heart Failure, Diabetes Mellitus, GERD/Reflux, Hyperlipidemia, Hypertension, Sleep Apnea/CPAP/BIPAP, Thyroid Disorder Additional Past Medical History / Comment(s): NIDDM type II, PVC,s, SOB, chronic constipation, edema lower legs, thin skin on lower legs, bilateral lower leg cellulitis-several times, migraines, sinus problems, recent URI with ABX and steroids, History of Any Multi-Drug Resistant Organisms: MRSA Date of last positivie culture/infection: 08/2014 MDRO Source:: lower leg Past Surgical History: Heart Catheterization With Stent, Joint Replacement, Orthopedic Surgery Additional Past Surgical History / Comment(s): MERVIN, CARDIOVERSIONS, DELROY knee replacement, R knee arthroscopy, delroy carotid endarterectomy Past Anesthesia/Blood Transfusion Reactions: No Reported Reaction, Postoperative Nausea & Vomiting (PONV) Additional Past Anesthesia/Blood Transfusion Reaction / Comment(s): . Date of Last Stent Placement:: 03/09/2014 Past Psychological History: Anxiety Additional Psychological History / Comment(s): Pt resides with his spouse. He is independent. Smoking Status: Former smoker Past Alcohol Use History: None Reported Additional Past Alcohol Use History / Comment(s): quit smoking 1998, smoked for approx 30 yrs, 3-4 PPD Past Drug Use History: None Reported - Past Family History Mother Family Medical History: Congestive Heart Failure (CHF), Diabetes Mellitus, Deep Vein Thrombosis (DVT), Hypertension, Renal Disease Additional Family Medical History / Comment(s): Renal failure with dialysis Father Family Medical History: Cancer Additional Family Medical History / Comment(s): melanoma. Father is 95 yrs old. General Exam - General Exam Comments Initial Comments: GENERAL: Patient is well-developed and well-nourished. Patient is nontoxic and well- hydrated and is in mild distress. ENT: Neck is soft and supple. No significant lymphadenopathy is noted. Oropharynx is clear. Moist mucous membranes. Neck has full range of motion without eliciting any pain. EYES: The sclera were anicteric and conjunctiva were pink and moist. Extraocular movements were intact and pupils were equal round and reactive to light. Eyelids were unremarkable. PULMONARY: Unlabored respirations. Good breath sounds bilaterally. No audible rales rhonchi or wheezing was noted. CARDIOVASCULAR: There is a regular rate and rhythm without any murmurs gallops or rubs. ABDOMEN: Soft and nontender with normal bowel sounds. No palpable organomegaly was noted. There is no palpable pulsatile mass. SKIN: Skin is clear with no lesions or rashes and otherwise unremarkable. NEUROLOGIC: Patient is alert and oriented x3. Cranial nerves II through XII are grossly intact. Motor and sensory are also intact. Normal speech, volume and content. Symmetrical smile. MUSCULOSKELETAL: Normal extremities with adequate strength and full range of motion. Bilateral edema 2+ left side is larger than the right is erythematous all the way up into the medial aspect of his thigh is warm and tender to palpation. LYMPHATICS: No significant lymphadenopathy is noted PSYCHIATRIC: Normal psychiatric evaluation. Limitations: no limitations Course Vital Signs 04/23/17 04/23/17 04/23/17 14:03 15:05 15:40 Temperature 101.5 F H 100.4 F H Pulse Rate 90 86 Respiratory 18 20 Rate Blood Pressure 140/63 143/63 O2 Sat by Pulse 92 L 99 Oximetry 04/23/17 15:58 Temperature Pulse Rate 93 Respiratory 20 Rate Blood Pressure 140/62 O2 Sat by Pulse 91 L Oximetry Medical Decision Making - Medical Decision Making EKG shows atrial fibrillation at 89 bpm QRS is 158 QT interval is 416 QTC is 506. Patient's EKG shows multiple PVCs as well. Patient has a vasculitis of the left leg and started the patient immediately and Zosyn and Vanco. I didn't THE LEG WAS NEGATIVE FOR DVT 80 CHEST X-RAY SHOWS MINIMAL PULMONARY EDEMA. I SPOKE WITH DR. STRANGE ADMITTED THE PATIENT I WROTE ADMITTING ORDERS. - Lab Data Result diagrams: 04/23/17 14:44 04/23/17 14:44 Lab Results 04/23/17 04/23/17 04/23/17 Range/Units 14:44 14:44 14:44 WBC 11.6 H (3.8-10.6) k/uL RBC 3.87 L (4.30-5.90) m/uL Hgb 11.2 L (13.0-17.5) gm/dL Hct 36.2 L (39.0-53.0) % MCV 93.6 (80.0-100.0) fL MCH 28.9 (25.0-35.0) pg MCHC 30.9 L (31.0-37.0) g/dL RDW 15.7 H (11.5-15.5) % Plt Count 117 L (150-450) k/uL Neutrophils % 86 % Lymphocytes % 8 % Monocytes % 4 % Eosinophils % 0 % Basophils % 1 % Neutrophils # 10.0 H (1.3-7.7) k/uL Lymphocytes # 0.9 L (1.0-4.8) k/uL Monocytes # 0.4 (0-1.0) k/uL Eosinophils # 0.0 (0-0.7) k/uL Basophils # 0.1 (0-0.2) k/uL Hypochromasia Moderate PT (9.0-12.0) sec INR (<1.1) APTT (22.0-30.0) sec Sodium 139 (137-145) mmol/L Potassium 4.5 (3.5-5.1) mmol/L Chloride 100 (98-107) mmol/L Carbon Dioxide 27 (22-30) mmol/L Anion Gap 12 mmol/L BUN 30 H (9-20) mg/dL Creatinine 1.30 H (0.66-1.25) mg/dL Est GFR (MDRD) Af Amer >60 (>60 ml/min/1.73 sqM) Est GFR (MDRD) Non-Af 55 (>60 ml/min/1.73 sqM) Glucose 101 H (74-99) mg/dL Plasma Lactic Acid Juan (0.7-2.0) mmol/L Calcium 9.0 (8.4-10.2) mg/dL Total Bilirubin 2.3 H (0.2-1.3) mg/dL AST 30 (17-59) U/L ALT 26 (21-72) U/L Alkaline Phosphatase 63 (38-126) U/L NT-Pro-B Natriuret Pep 6640 pg/mL Total Protein 6.8 (6.3-8.2) g/dL Albumin 3.7 (3.5-5.0) g/dL 04/23/17 04/23/17 Range/Units 14:44 14:44 WBC (3.8-10.6) k/uL RBC (4.30-5.90) m/uL Hgb (13.0-17.5) gm/dL Hct (39.0-53.0) % MCV (80.0-100.0) fL MCH (25.0-35.0) pg MCHC (31.0-37.0) g/dL RDW (11.5-15.5) % Plt Count (150-450) k/uL Neutrophils % % Lymphocytes % % Monocytes % % Eosinophils % % Basophils % % Neutrophils # (1.3-7.7) k/uL Lymphocytes # (1.0-4.8) k/uL Monocytes # (0-1.0) k/uL Eosinophils # (0-0.7) k/uL Basophils # (0-0.2) k/uL Hypochromasia PT 24.8 H (9.0-12.0) sec INR 2.6 (<1.1) APTT 67.7 H (22.0-30.0) sec Sodium (137-145) mmol/L Potassium (3.5-5.1) mmol/L Chloride (98-107) mmol/L Carbon Dioxide (22-30) mmol/L Anion Gap mmol/L BUN (9-20) mg/dL Creatinine (0.66-1.25) mg/dL Est GFR (MDRD) Af Amer (>60 ml/min/1.73 sqM) Est GFR (MDRD) Non-Af (>60 ml/min/1.73 sqM) Glucose (74-99) mg/dL Plasma Lactic Acid Juan 1.5 (0.7-2.0) mmol/L Calcium (8.4-10.2) mg/dL Total Bilirubin (0.2-1.3) mg/dL AST (17-59) U/L ALT (21-72) U/L Alkaline Phosphatase (38-126) U/L NT-Pro-B Natriuret Pep pg/mL Total Protein (6.3-8.2) g/dL Albumin (3.5-5.0) g/dL Disposition Clinical Impression: Cellulitis, Pulmonary edema Disposition: ADMITTED IP TO THIS HOSP Referrals: Lucas Strange MD [Primary Care Provider] - 1-2 days Time of Disposition: 16:07
[2017-04-23] MEDS ORDERED: ACETAMINOPHEN TAB 500 MG TAB PO STA (14:27)
[2017-04-23] MEDS ORDERED: SODIUM CHLORIDE 0.9% 500 ML IV SCH (14:30)
[2017-04-23] MEDS ORDERED: VANCOMYCIN 2,500 MG in SODIUM CHLORIDE 0.9% 500 ML IVPB ONE (15:00)
[2017-04-23 15:11] LABS: Basophils # (A) 0.1 k/uL (0-0.2); Basophils % (A) 1 %; CH 28.6; CHCM 30.8; Eosinophils % (A) 0 %; HCT 36.2 % (39.0-53.0); HGB 11.2 gm/dL (13.0-17.5); Hypochromasia Moderate; Luc # (Auto) 0.17; Luc % (Auto) 2; Lymphocytes # (A) 0.9 k/uL (1.0-4.8); Lymphocytes % (A) 8 %; MCH 28.9 pg (25.0-35.0); MCHC 30.9 g/dL (31.0-37.0); MCV 93.6 fL (80.0-100.0); Mean Platelet Volume 8.9; Monocytes # (A) 0.4 k/uL (0-1.0); Monocytes % (A) 4 %; Neutrophils % (A) 86 %; RBC 3.87 m/uL (4.30-5.90); RDW 15.7 % (11.5-15.5); WBC 11.6 k/uL (3.8-10.6)
[2017-04-23 15:15] LABS: INR 2.6 (<1.1); Prothrombin Time 24.8 sec (9.0-12.0)
[2017-04-23 15:23] LABS: ALT 26 U/L (21-72); AST 30 U/L (17-59); Alkaline Phosphatase 63 U/L (38-126); Anion Gap 12 mmol/L; Blood Urea Nitrogen 30 mg/dL (9-20); Carbon Dioxide 27 mmol/L (22-30); Chloride 100 mmol/L (98-107); Glucose 101 mg/dL (74-99); Non-African American GFR(MDRD) 55 (>60 ml/min/1.73 sqM); Potassium 4.5 mmol/L (3.5-5.1); Sodium 139 mmol/L (137-145); Total Bilirubin 2.3 mg/dL (0.2-1.3); Total Protein 6.8 g/dL (6.3-8.2)
--- NOTE | 2017-04-23 15:23 | XR ---
EXAMINATION TYPE: XR chest 2V DATE OF EXAM: 04/23/2017 3:05 PM COMPARISON: 02/23/2014 HISTORY: Cellulitis TECHNIQUE: Frontal and lateral views of the chest are obtained. FINDINGS: Heart is enlarged. There is coarsening of interstitial markings. Lungs are clear of consol idation. There is no pleural effusion. There are chest leads. IMPRESSION: Cardiomegaly. The pulmonary vascularity is increased compared to last exam and consisten t with mild heart failure. Heart size appears increased.
[2017-04-23 15:48] LABS: Partial Thromboplastin Time 67.7 sec (22.0-30.0)
--- NOTE | 2017-04-23 16:02 | US ---
EXAMINATION TYPE: US venous doppler duplex LE LT DATE OF EXAM: 04/23/2017 3:55 PM COMPARISON: NONE CLINICAL HISTORY: Pain. Left leg pain and edema, wound left lower leg x 1 month. Patient on blood thi nner for AFIB SIDE PERFORMED: Left TECHNIQUE: The lower extremity deep venous system is examined utilizing real time linear array sonog gaye with graded compression, doppler sonography and color-flow sonography. VESSELS IMAGED: External Iliac Vein (EIV) Common Femoral Vein Deep Femoral Vein Greater Saphenous Vein * Femoral Vein Popliteal Vein Small Saphenous Vein * Proximal Calf Veins (* superficial vessels) Left Leg: NO evidence for acute DVT as visualized. Unable to visualize mid or lower femoral vein for compression. Extreme technical limitations due to patient's body habitus 400+ pounds IMPRESSION: Within the limits of the exam there is no evidence of deep venous thrombosis in the left leg.
[2017-04-23] MEDS ORDERED: SODIUM CHLORIDE 0.9% 1,000 ML IV ONE (16:08)
[2017-04-23] MEDS ORDERED: FUROSEMIDE 10 MG/ML 4 ML VIAL IV STA (16:09)
[2017-04-23 16:51] LABS: Glucose,Whole Blood 105 mg/dL (75-99)
[2017-04-23 17:39] LABS: Appearance,Urine Clear (Clear); Bilirubin,Urine Negative (Negative); Glucose,Urine (UA) Negative (Negative); Granular Casts,Urine 1 /lpf (0); Ketones,Urine Negative (Negative); Leukocyte Esterase,Urine Negative (Negative); Nitrite,Urine Negative (Negative); Particle Count 472; Protein,Urine 1+ (Negative); Specific Gravity,Urine 1.017 (1.001-1.035); Squamous Epithelial Cell,Urine <1 /hpf (0-4); UA Billing (MACRO vs. MICRO) MICRO; WBC,Urine 1 /hpf (0-5)
[2017-04-23] MEDS ORDERED: ALBUTEROL NEBULIZED 2.5 MG/3 ML INHALATION PRN (18:21)
[2017-04-23] MEDS ORDERED: NITROGLYCERIN SL TABS 0.4 MG TAB SUBLINGUAL PRN (18:21)
[2017-04-23] MEDS ORDERED: predniSONE 10 MG TAB PO PRN (18:21)
[2017-04-23] MEDS: LOSARTAN 50 MG TAB PO SCH (20:03)
[2017-04-23] MEDS: METOPROLOL TARTRATE 50 MG TAB PO SCH (20:03)
[2017-04-23] MEDS: diphenhydrAMINE 25 MG CAP PO PRN (20:18)
[2017-04-23 20:46] LABS: Glucose,Whole Blood 87 mg/dL (75-99)
[2017-04-23] MEDS: PIPERACILLIN-TAZOBACTAM 3.375 GM in DEXTROSE/WATER 1 50ML.BAG IVPB SCH (22:43)
[2017-04-23] MEDS: FUROSEMIDE 10 MG/ML 4 ML VIAL IV SCH (22:44)
[2017-04-24 05:39] LABS: Glucose,Whole Blood 86 mg/dL (75-99)
[2017-04-24 05:48] LABS: CH 28.5; CHCM 29.3; HCT 35.9 % (39.0-53.0); HDW 2.52; HGB 10.7 gm/dL (13.0-17.5); Hypochromasia Marked; MCH 29.1 pg (25.0-35.0); MCHC 29.8 g/dL (31.0-37.0); MCV 97.6 fL (80.0-100.0); Mean Platelet Volume 8.2; RBC 3.68 m/uL (4.30-5.90); RDW 15.6 % (11.5-15.5); WBC 11.8 k/uL (3.8-10.6)
[2017-04-24 06:37] LABS: Calcium 8.7 mg/dL (8.4-10.2); Potassium 4.1 mmol/L (3.5-5.1)
[2017-04-24] MEDS: LEVOTHYROXINE 75 MCG TAB PO SCH (07:00)
[2017-04-24] MEDS: LEVOTHYROXINE 100 MCG TAB PO SCH (07:00)
[2017-04-24] MEDS: PIPERACILLIN-TAZOBACTAM 3.375 GM in DEXTROSE/WATER 1 50ML.BAG IVPB SCH ×2 (07:17→16:08)
--- NOTE | 2017-04-24 07:51 | XR ---
EXAMINATION TYPE: XR chest 2V DATE OF EXAM: 04/24/2017 COMPARISON: Prior chest x-ray 04/23/2017 HISTORY: Pulmonary edema, lower extremity cellulitis TECHNIQUE: Frontal and lateral views of the chest are obtained. FINDINGS: The heart remains enlarged. No pneumonia, pneumothorax, or pleural effusion is evident. Pu lmonary vascularity and robi not significantly changed. IMPRESSION: Cardiomegaly.
[2017-04-24] MEDS: VANCOMYCIN 2,500 MG in SODIUM CHLORIDE 0.9% 500 ML IVPB SCH (08:04)
[2017-04-24] MEDS: ATORVASTATIN 80 MG TAB PO SCH (08:05)
[2017-04-24] MEDS: RIVAROXABAN 10 MG TAB PO SCH (08:05)
[2017-04-24] MEDS: METOPROLOL TARTRATE 50 MG TAB PO SCH ×2 (08:05→21:31)
[2017-04-24] MEDS: FUROSEMIDE 10 MG/ML 4 ML VIAL IV SCH ×2 (08:05→21:29)
[2017-04-24] MEDS: LOSARTAN 50 MG TAB PO SCH ×2 (08:06→21:30)
[2017-04-24] MEDS ORDERED: NON-FORMULARY DRUG (Flaxseed Oil [Omega-3 Flaxseed Oil] 1,000 MG) PO SCH (09:00)
[2017-04-24] MEDS ORDERED: NON-FORMULARY DRUG (Fish Oil/Dha/Epa [Fish Oil 1,200 Mg Fish Oil] 1 CAP) PO SCH (09:00)
--- NOTE | 2017-04-24 09:42 | P.CONS ---
History of Present Illness - Reason for Consult Consult date: 04/24/17 Cellulitis - History of Present Illness This is a 71-year-old male who gives history that he had a cat scratch to his left lower leg at the lateral ankle area 2 months ago and he has had ongoing problems with cellulitis. Patient states he has been treated by Dr. Mojica in the outpatient setting and has had oral antibiotics. He does not recall the name of the antibiotic. He states he did have some improvement but yesterday he had sudden onset of redness and swelling and went up into his thigh area and also developed fevers. Patient presented to [facility] emergency center with the above. His white count was 11.6, temperature 101.5. BUN is currently 34 with a creatinine of 1.46 with GFR of 48. Urinalysis was nitrate and leukoesterase negative and urine culture is in process. Blood culture is status received. He had a chest x-ray that showed cardiomegaly with mild heart failure with increased heart size. He did have a recent CTA of the abdominal aorta on April 11 as an outpatient ordered by Dr. Srinivasan which showed ascites adjacent to the liver and spleen. Pancreas was atrophic. Vascular calcifications within the aorta. Inferior vena cava is unremarkable. Most of the bowel unremarkable. 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 The anterior and posterior tibial arteries appear to be present and patent bilaterally although delineation of the origins can not be evaluated with hardening artifact at the level of the bilateral knees. Patient has been started on Zosyn and vancomycin and states that he is improved from yesterday. He does not recall when his tetanus was last updated. He states that his shortness of breath is at his baseline. He is currently on IV Lasix with good urine output. He states his blood sugar has been running in the low 100s at home. Hemoglobin A1c is pending. Review of Systems All systems: negative Constitutional: Reports chills, Reports fever Eyes: denies blurred vision, denies pain Ears, nose, mouth and throat: Denies headache, Denies sore throat Cardiovascular: Denies chest pain, Denies shortness of breath Respiratory: Denies cough Gastrointestinal: Denies abdominal pain, Denies diarrhea, Denies nausea, Denies vomiting Musculoskeletal: Denies myalgias Integumentary: Reports darkening of skin, Reports wounds, Denies pruritus, Denies rash Neurological: Denies numbness, Denies weakness Psychiatric: Denies anxiety, Denies depression Endocrine: Denies fatigue, Denies weight change Past Medical History Past Medical History: Atrial Fibrillation, Coronary Artery Disease (CAD), Heart Failure, Diabetes Mellitus, GERD/Reflux, Hyperlipidemia, Hypertension, Sleep Apnea/CPAP/BIPAP, Thyroid Disorder Additional Past Medical History / Comment(s): NIDDM type II, PVC,s, SOB, chronic constipation, edema lower legs, thin skin on lower legs, bilateral lower leg cellulitis-several times, migraines, sinus problems, recent URI with ABX and steroids, History of Any Multi-Drug Resistant Organisms: MRSA Year Discovered:: 08/2014 MDRO Source:: lower leg Past Surgical History: Heart Catheterization With Stent, Joint Replacement, Orthopedic Surgery Additional Past Surgical History / Comment(s): MERVIN, CARDIOVERSIONS, DELROY knee replacement, R knee arthroscopy, delroy carotid endarterectomy Past Anesthesia/Blood Transfusion Reactions: No Reported Reaction, Postoperative Nausea & Vomiting (PONV) Additional Past Anesthesia/Blood Transfusion Reaction / Comm: . Date of Last Stent Placement:: 03/09/2014 Past Psychological History: Anxiety Additional Psychological History / Comment(s): Pt resides with his spouse. He is independent. Smoking Status: Former smoker Past Alcohol Use History: None Reported Additional Past Alcohol Use History / Comment(s): quit smoking 1998, smoked for approx 30 yrs, 3-4 PPD Past Drug Use History: None Reported - Past Family History Mother Family Medical History: Congestive Heart Failure (CHF), Diabetes Mellitus, Deep Vein Thrombosis (DVT), Hypertension, Renal Disease Additional Family Medical History / Comment(s): Renal failure with dialysis Father Family Medical History: Cancer Additional Family Medical History / Comment(s): melanoma. Father is 95 yrs old. Medications and Allergies Home Medications Medication Instructions Recorded Confirmed Type Atorvastatin [Lipitor] 80 mg PO QAM 04/07/14 04/23/17 History Fish Oil/Dha/Epa [Fish Oil 1,200 1 cap PO QAM 08/18/16 04/23/17 History mg Fish Oil] Flaxseed Oil [[place]-3 Flaxseed Oil] 1,000 mg PO QAM 08/18/16 04/23/17 History Levothyroxine Sodium [Synthroid] 175 mcg PO QAM 08/18/16 04/23/17 History Rivaroxaban [Xarelto] 20 mg PO QAM 08/18/16 04/23/17 History Metoprolol Tartrate [Lopressor] 50 mg PO BID 12/18/16 04/23/17 History glipiZIDE XL [Glucotrol XL] 5 mg PO QAM 12/18/16 04/23/17 History Albuterol Inhaler [Ventolin Hfa 1 - 2 puff INHALATION RT-Q6H PRN 04/23/17 History Inhaler] Furosemide [Lasix] 10 mg PO DAILY@1200 04/23/17 04/23/17 History Nitroglycerin Sl Tabs [Nitrostat] 0.4 mg SUBLINGUAL Q5M PRN 04/23/17 04/23/17 History Spironolactone [Aldactone] 25 mg PO DAILY@1200 04/23/17 04/23/17 History diphenhydrAMINE HCL [Benadryl] 25 mg PO Q4H PRN 04/23/17 04/23/17 History predniSONE 10 mg PO BID PRN 04/23/17 04/23/17 History traMADol HCL [Ultram] 50 mg PO TID PRN 04/23/17 04/23/17 History Allergies Allergy/AdvReac Type Severity Reaction Status Date / Time metformin HCl Allergy Unknown Rash/Hives Verified 04/23/17 14:59 [From Glucophage] adhesive tape Allergy Rash/Hives Verified 04/23/17 14:56 banana [Banana] Allergy Rash/Hives Verified 04/23/17 14:59 cheese Allergy Rash/Hives Verified 04/23/17 14:59 codeine Allergy Rash/Hives Verified 04/23/17 14:59 latex Allergy Rash/Hives Verified 04/23/17 14:59 NSAIDS (Non-Steroidal Allergy Rash/Hives Verified 04/23/17 14:59 Anti-Inflamma dofetilide [From Tikosyn] AdvReac Severe Torsades Verified 04/23/17 14:59 de Pointes YOGURT AdvReac Itching Uncoded 09/19/16 08:10 Physical Exam Vitals: Vital Signs Temp Pulse Pulse Pulse Resp BP BP 04/24/17 03:03 99.4 F 103 H 103 H 17 128/67 04/23/17 23:34 98.5 F 89 18 134/68 04/23/17 20:00 98.4 F 85 17 124/54 04/23/17 17:25 99.8 F H 81 90 18 90/41 04/23/17 16:31 99.3 F 78 20 126/57 04/23/17 15:58 93 20 140/62 04/23/17 15:40 100.4 F H 04/23/17 15:05 86 20 143/63 04/23/17 14:03 101.5 F H 90 18 140/63 Pulse Ox 04/24/17 03:03 92 L 04/23/17 23:34 97 04/23/17 20:00 95 04/23/17 17:25 94 L 04/23/17 16:31 91 L 04/23/17 15:58 91 L 04/23/17 15:40 04/23/17 15:05 99 04/23/17 14:03 92 L Intake and Output 04/23/17 04/24/17 04/24/17 22:59 06:59 14:59 Intake Total 500 200 Output Total 1100 900 Balance -600 -900 200 Intake: IV 500 Vancomycin 2,500 mg In 500 Sodium Chloride 0.9% 500 ml @ 167 mls/hr IVPB ONCE ONE Rx#:[id number] Oral 200 Output: Urine 1100 900 Other: Voiding Method Toilet Urinal Weight 185.91 kg 180.2 kg Gen: This is a morbidly obese 71-year-old male. He is sitting in bed and appears to be somewhat comfortable. HEENT: Head is atraumatic, normocephalic. Pupils equal, round. Sclerae is anicteric. NECK: Supple. No JVD. No lymphadenopathy. No thyromegaly. LUNGS: Diminished bilaterally with expiratory wheeze. No intercostal retractions. HEART: Irregular rate and rhythm. No murmur. ABDOMEN: Soft. Bowel sounds are present. No masses. No tenderness. EXTREMITIES: 3+ pedal edema to the left lower extremity and 1+ to the right lower extremity. There is erythema on the left leg extending from the foot up into the groin area with warmth to the touch and edema. To the pretibial area, there are wounds currently without drainage. The right lower extremity, there is erythema and warmth to the mid pretibial area. NEUROLOGICAL: Patient is awake, alert and oriented x3. Cranial nerves 2 through 12 are grossly intact. Results Results: Laboratory Results WBC 11.8 k/uL (3.8-10.6) H 04/24/17 05:35 RBC 3.68 m/uL (4.30-5.90) L 04/24/17 05:35 Hgb 10.7 gm/dL (13.0-17.5) L 04/24/17 05:35 Hct 35.9 % (39.0-53.0) L 04/24/17 05:35 MCV 97.6 fL (80.0-100.0) 04/24/17 05:35 MCH 29.1 pg (25.0-35.0) 04/24/17 05:35 MCHC 29.8 g/dL (31.0-37.0) L 04/24/17 05:35 RDW 15.6 % (11.5-15.5) H 04/24/17 05:35 Plt Count 101 k/uL (150-450) L 04/24/17 05:35 Neutrophils % 86 % 04/23/17 14:44 Lymphocytes % 8 % 04/23/17 14:44 Monocytes % 4 % 04/23/17 14:44 Eosinophils % 0 % 04/23/17 14:44 Basophils % 1 % 04/23/17 14:44 Neutrophils # 10.0 k/uL (1.3-7.7) H 04/23/17 14:44 Lymphocytes # 0.9 k/uL (1.0-4.8) L 04/23/17 14:44 Monocytes # 0.4 k/uL (0-1.0) 04/23/17 14:44 Eosinophils # 0.0 k/uL (0-0.7) 04/23/17 14:44 Basophils # 0.1 k/uL (0-0.2) 04/23/17 14:44 Hypochromasia Marked 04/24/17 05:35 PT 24.8 sec (9.0-12.0) H 04/23/17 14:44 INR 2.6 (<1.1) 04/23/17 14:44 APTT 67.7 sec (22.0-30.0) H 04/23/17 14:44 Sodium 140 mmol/L (137-145) 04/24/17 05:35 Potassium 4.1 mmol/L (3.5-5.1) 04/24/17 05:35 Chloride 101 mmol/L (98-107) 04/24/17 05:35 Carbon Dioxide 30 mmol/L (22-30) 04/24/17 05:35 Anion Gap 9 mmol/L 04/24/17 05:35 BUN 34 mg/dL (9-20) H 04/24/17 05:35 Creatinine 1.46 mg/dL (0.66-1.25) H 04/24/17 05:35 Est GFR (MDRD) Af Amer 58 (>60 ml/min/1.73 sqM) 04/24/17 05:35 Est GFR (MDRD) Non-Af 48 (>60 ml/min/1.73 sqM) 04/24/17 05:35 Glucose 86 mg/dL (74-99) 04/24/17 05:35 POC Glucose (mg/dL) 86 mg/dL (75-99) 04/24/17 05:38 POC Glu Shrinking Machine Operator ID Roni Berger 04/24/17 05:38 Plasma Lactic Acid Juan 1.0 mmol/L (0.7-2.0) 04/24/17 05:35 Calcium 8.7 mg/dL (8.4-10.2) 04/24/17 05:35 Total Bilirubin 2.3 mg/dL (0.2-1.3) H 04/23/17 14:44 AST 30 U/L (17-59) 04/23/17 14:44 ALT 26 U/L (21-72) 04/23/17 14:44 Alkaline Phosphatase 63 U/L (38-126) 04/23/17 14:44 NT-Pro-B Natriuret Pep 6640 pg/mL 04/23/17 14:44 Total Protein 6.8 g/dL (6.3-8.2) 04/23/17 14:44 Albumin 3.7 g/dL (3.5-5.0) 04/23/17 14:44 Urine Color Yellow 04/23/17 17:00 Urine Appearance Clear (Clear) 04/23/17 17:00 Urine pH 8.0 (5.0-8.0) 04/23/17 17:00 Ur Specific [place] 1.017 (1.001-1.035) 04/23/17 17:00 Urine Protein 1+ (Negative) H 04/23/17 17:00 Urine Glucose (UA) Negative (Negative) 04/23/17 17:00 Urine Ketones Negative (Negative) 04/23/17 17:00 Urine Blood Negative (Negative) 04/23/17 17:00 Urine Nitrite Negative (Negative) 04/23/17 17:00 Urine Bilirubin Negative (Negative) 04/23/17 17:00 Urine Urobilinogen 4.0 mg/dL (<2.0) 04/23/17 17:00 Ur Leukocyte Esterase Negative (Negative) 04/23/17 17:00 Urine WBC 1 /hpf (0-5) 04/23/17 17:00 Ur Squamous Epith Cells <1 /hpf (0-4) 04/23/17 17:00 Granular Casts 1 /lpf (0) 04/23/17 17:00 CBC & Chem 7: 04/24/17 05:35 04/24/17 05:35 Labs: Abnormal Lab Results - Last 24 Hours (Table) 04/23/17 04/23/17 04/23/17 Range/Units 14:44 14:44 14:44 WBC 11.6 H (3.8-10.6) k/uL RBC 3.87 L (4.30-5.90) m/uL Hgb 11.2 L (13.0-17.5) gm/dL Hct 36.2 L (39.0-53.0) % MCHC 30.9 L (31.0-37.0) g/dL RDW 15.7 H (11.5-15.5) % Plt Count 117 L (150-450) k/uL Neutrophils # 10.0 H (1.3-7.7) k/uL Lymphocytes # 0.9 L (1.0-4.8) k/uL PT 24.8 H (9.0-12.0) sec APTT 67.7 H (22.0-30.0) sec BUN 30 H (9-20) mg/dL Creatinine 1.30 H (0.66-1.25) mg/dL Glucose 101 H (74-99) mg/dL POC Glucose (mg/dL) (75-99) mg/dL Total Bilirubin 2.3 H (0.2-1.3) mg/dL Urine Protein (Negative) 04/23/17 04/23/17 04/24/17 Range/Units 16:49 17:00 05:35 WBC 11.8 H (3.8-10.6) k/uL RBC 3.68 L (4.30-5.90) m/uL Hgb 10.7 L (13.0-17.5) gm/dL Hct 35.9 L (39.0-53.0) % MCHC 29.8 L (31.0-37.0) g/dL RDW 15.6 H (11.5-15.5) % Plt Count 101 L (150-450) k/uL Neutrophils # (1.3-7.7) k/uL Lymphocytes # (1.0-4.8) k/uL PT (9.0-12.0) sec APTT (22.0-30.0) sec BUN (9-20) mg/dL Creatinine (0.66-1.25) mg/dL Glucose (74-99) mg/dL POC Glucose (mg/dL) 105 H (75-99) mg/dL Total Bilirubin (0.2-1.3) mg/dL Urine Protein 1+ H (Negative) 04/24/17 Range/Units 05:35 WBC (3.8-10.6) k/uL RBC (4.30-5.90) m/uL Hgb (13.0-17.5) gm/dL Hct (39.0-53.0) % MCHC (31.0-37.0) g/dL RDW (11.5-15.5) % Plt Count (150-450) k/uL Neutrophils # (1.3-7.7) k/uL Lymphocytes # (1.0-4.8) k/uL PT (9.0-12.0) sec APTT (22.0-30.0) sec BUN 34 H (9-20) mg/dL Creatinine 1.46 H (0.66-1.25) mg/dL Glucose (74-99) mg/dL POC Glucose (mg/dL) (75-99) mg/dL Total Bilirubin (0.2-1.3) mg/dL Urine Protein (Negative) Microbiology - Last 24 Hours (Table) 04/23/17 17:00 Urine Culture - Preliminary Urine,Voided Assessment and Plan Plan: This is a 71-year-old male who presented to the hospital with extensive cellulitis of the left lower extremity which possibly started 2 months ago after cat scratch to the left ankle and failed outpatient treatment and mild cellulitis to the right lower extremity. He is currently on Zosyn and vancomycin which will be continued for now. Tetanus status will be updated. Silvadene wraps for local wound care and elevation of the [place] is. Continue supportive care. Further recommendations as patient progresses. The above dictated assessment and findings were discussed with Dr. Stevenson. The impression and plan of care have been directed as dictated. Gabi Milan nurse practitioner acting as scribe for Dr. Stevenson..
--- NOTE | 2017-04-24 09:50 | CONS ---
DATE OF CONSULTATION: CHIEF COMPLAINT: Cellulitis of both legs. This is a 71-year-old gentleman who presented to the hospital complaining of left leg swelling, redness and warmth and was found to have a cellulitis and had been admitted for the same. Cardiology is consulted because of his history of chronic atrial fibrillation He denies chest pain or difficulty in breathing. There is no history of palpitations. Does not have paroxysmal nocturnal dyspnea or orthopnea. He has chronic stasis changes involving both legs, more on the left than on the right and has mild leg edema, again more on the left than on the right. At the time of my evaluation, patient appears comfortable at rest and is free of symptoms. Patient has known CAD and has had prior angioplasty and his baseline LV function is normal. He is currently on Xarelto for mcc anticoagulation. Past medical history is significant for chronic atrial fibrillation, hypertension, dyslipidemia, hypothyroidism, CAD, status post angioplasty and [id number] diabetes. Medications include Ventolin, Lasix 10 mg daily, Aldactone 25 mg daily, Benadryl, prednisone, Ultram, Glucotrol XL, Lipitor, fish oil, Synthroid, Xarelto and Lopressor. ALLERGIES: The patient is ALLERGIC TO METFORMIN, CODEINE, LATEX, NSAID, TIKOSYN. FAMILY HISTORY: Negative for premature coronary artery disease and that is significant for congestive heart failure, diabetes, DVT, hypertension. Past surgical history is significant for joint replacement, MERVIN, cardioversion, bilateral carotid endarterectomy, cardiac catheterization and angioplasty. REVIEW OF SYSTEMS: HEENT: Unremarkable. CARDIAC: As described above. RESPIRATORY: Negative. GI: Negative. GENITOURINARY: Negative. ALLERGY: Unremarkable. SKIN: ( ) cellulitis and leg swelling. PSYCHOSOCIAL: Negative. ENDOCRINE: Negative. HEMATOLOGICAL: Negative. CONSTITUTIONAL: Significant for cellulitis. Significant for low-grade fever. ONCOLOGICAL: Negative. The rest of the system review is not relevant. On exam, comfortable at rest. Heart rate is 100 beats per minute, irregular. T-max is 99.4. Blood pressure is 128/67, respiratory rate is 18. Chest exam reveals diminished air entry at the bases. Heart exam reveals first and second heart sounds, irregular rhythm, and a systolic murmur in the left lower sternal border. Abdomen is soft. Exam of extremities reveals cellulitis over the left leg with bilateral chronic stasis changes and mild edema over the right leg. Labs show a BUN of 34. Creatinine of 1.4. BNP is elevated at 6640. An echocardiogram in November 2016 revealed normal LV systolic function, severe pulmonary hypertension and mild aortic stenosis. ASSESSMENT: 1. Acute exacerbation of chronic diastolic heart failure. 2. Chronic atrial fibrillation with controlled ventricular rate. 3. Cellulitis of the left leg. 4. Coronary artery disease, status post angioplasty. 5. Dyslipidemia. 6. Hypertension. PLAN: Will continue with Xarelto for anticoagulation, metoprolol both for rate control and antihypertensive, Cozaar. I am going to stop the Aldactone at this time. Patient is on Lasix 40 mg IV q.12. Will leave him on IV Lasix today and then switch him to p.o. tomorrow. He does not need another echocardiogram at this time. Patient is on IV antibiotics. I anticipate his going home over the next 24 to 48 hours with continued follow-up with my associate, Dr. Cline. Also if the heart rate is not well-controlled I am going to increase her Lopressor to 75 b.i.d.
[2017-04-24] MEDS ORDERED: DIPH,PERTUS(ACELL)TETVAC-LF 0.5 ML VIAL IM ONE (10:00)
[2017-04-24] MEDS: SILVER sulfADIAZINE Cream 400 GM 1 APPLIC APPLIC TOPICAL SCH ×2 (10:30→21:31)
[2017-04-24 11:55] LABS: Glucose,Whole Blood 67 mg/dL (75-99)
[2017-04-24] MEDS ORDERED: SPIRONOLACTONE 25 MG TAB PO SCH (12:00)
[2017-04-24 12:52] LABS: Glucose,Whole Blood 93 mg/dL (75-99)
--- NOTE | 2017-04-24 16:56 | P.HPIM ---
History of Present Illness H&P Date: 04/24/17 Chief Complaint: Left leg pain Patient is a 71-year-old male, patient of Dr. Mojica and Dr. Mason in the outpatient setting, presenting to the emergency department with complains of increased left leg swelling, redness, and warmth 1 day associated with fevers. Patient reports history of a cat scratch to his left lower leg approximately 2 months ago please had ongoing problems with cellulitis. Patient was treated with antibiotics in the outpatient setting by Dr. Mojica. Emergency department patient had a fever of 101.5 with evidence of leukocytosis with white count of 11.6. Patient was noted to have anemia with hemoglobin of 11.2 and thrombocytopenia with platelet count of 117. BUN 30 creatinine 1.30. Total bilirubin 2.3. Chest x-ray with evidence of cardiomegaly and mild congestive heart failure. Venous Doppler study of left leg without evidence for acute DVT. Patient was started on IV antibiotics in the form of Zosyn and vancomycin, started on IV Lasix, and blood and urine cultures were drawn. Patient was admitted to the selective care unit with consult for cardiology and Dr. Stevenson for infectious disease service. Upon evaluation, patient states he feels a little better. Denies nausea, vomiting, chills, fevers, shortness of breath, chest pain, or abdominal pain. Past Medical History Past Medical History: Atrial Fibrillation, Coronary Artery Disease (CAD), Heart Failure, Diabetes Mellitus, GERD/Reflux, Hyperlipidemia, Hypertension, Sleep Apnea/CPAP/BIPAP, Thyroid Disorder Additional Past Medical History / Comment(s): NIDDM type II, PVC,s, SOB, chronic constipation, edema lower legs, thin skin on lower legs, bilateral lower leg cellulitis-several times, migraines, sinus problems, recent URI with ABX and steroids, History of Any Multi-Drug Resistant Organisms: MRSA Date of last positivie culture/infection: 08/2014 MDRO Source:: lower leg Past Surgical History: Heart Catheterization With Stent, Joint Replacement, Orthopedic Surgery Additional Past Surgical History / Comment(s): MERVIN, CARDIOVERSIONS, DELROY knee replacement, R knee arthroscopy, delroy carotid endarterectomy Past Anesthesia/Blood Transfusion Reactions: No Reported Reaction, Postoperative Nausea & Vomiting (PONV) Additional Past Anesthesia/Blood Transfusion Reaction / Comment(s): . Date of Last Stent Placement:: 03/09/2014 Past Psychological History: Anxiety Additional Psychological History / Comment(s): Pt resides with his spouse. He is independent. Smoking Status: Former smoker Past Alcohol Use History: None Reported Additional Past Alcohol Use History / Comment(s): quit smoking 1998, smoked for approx 30 yrs, 3-4 PPD Past Drug Use History: None Reported - Past Family History Mother Family Medical History: Congestive Heart Failure (CHF), Diabetes Mellitus, Deep Vein Thrombosis (DVT), Hypertension, Renal Disease Additional Family Medical History / Comment(s): Renal failure with dialysis Father Family Medical History: Cancer Additional Family Medical History / Comment(s): melanoma. Father is 95 yrs old. Medications and Allergies Home Medications Medication Instructions Recorded Confirmed Type Atorvastatin [Lipitor] 80 mg PO QAM 04/07/14 04/23/17 History Fish Oil/Dha/Epa [Fish Oil 1,200 1 cap PO QAM 08/18/16 04/23/17 History mg Fish Oil] Flaxseed Oil [Jefferson-3 Flaxseed Oil] 1,000 mg PO QAM 08/18/16 04/23/17 History Levothyroxine Sodium [Synthroid] 175 mcg PO QAM 08/18/16 04/23/17 History Rivaroxaban [Xarelto] 20 mg PO QAM 08/18/16 04/23/17 History Metoprolol Tartrate [Lopressor] 50 mg PO BID 12/18/16 04/23/17 History glipiZIDE XL [Glucotrol XL] 5 mg PO QAM 12/18/16 04/23/17 History Albuterol Inhaler [Ventolin Hfa 1 - 2 puff INHALATION RT-Q6H PRN 04/23/17 History Inhaler] Furosemide [Lasix] 10 mg PO DAILY@1200 04/23/17 04/23/17 History Nitroglycerin Sl Tabs [Nitrostat] 0.4 mg SUBLINGUAL Q5M PRN 04/23/17 04/23/17 History Spironolactone [Aldactone] 25 mg PO DAILY@1200 04/23/17 04/23/17 History diphenhydrAMINE HCL [Benadryl] 25 mg PO Q4H PRN 04/23/17 04/23/17 History predniSONE 10 mg PO BID PRN 04/23/17 04/23/17 History traMADol HCL [Ultram] 50 mg PO TID PRN 04/23/17 04/23/17 History Allergies Allergy/AdvReac Type Severity Reaction Status Date / Time metformin HCl Allergy Unknown Rash/Hives Verified 04/23/17 14:59 [From Glucophage] adhesive tape Allergy Rash/Hives Verified 04/23/17 14:56 banana [Banana] Allergy Rash/Hives Verified 04/23/17 14:59 cheese Allergy Rash/Hives Verified 04/23/17 14:59 codeine Allergy Rash/Hives Verified 04/23/17 14:59 latex Allergy Rash/Hives Verified 04/23/17 14:59 NSAIDS (Non-Steroidal Allergy Rash/Hives Verified 04/23/17 14:59 Anti-Inflamma dofetilide [From Tikosyn] AdvReac Severe Torsades Verified 04/23/17 14:59 de Pointes YOGURT AdvReac Itching Uncoded 09/19/16 08:10 Physical Exam Vitals: Vital Signs Temp Pulse Pulse Pulse Resp BP BP 04/24/17 15:34 103 H 86 18 113/51 04/24/17 12:00 103 H 80 18 117/61 04/24/17 08:00 98.8 F 103 H 85 18 118/64 04/24/17 03:03 99.4 F 103 H 103 H 17 128/67 04/23/17 23:34 98.5 F 89 18 134/68 04/23/17 20:00 98.4 F 85 17 124/54 04/23/17 17:25 99.8 F H 81 90 18 90/41 04/23/17 16:31 99.3 F 78 20 126/57 Pulse Ox 04/24/17 15:34 93 L 04/24/17 12:00 95 04/24/17 08:00 95 04/24/17 03:03 92 L 04/23/17 23:34 97 04/23/17 20:00 95 04/23/17 17:25 94 L 04/23/17 16:31 91 L Intake and Output 04/24/17 04/24/17 04/24/17 06:59 14:59 22:59 Intake Total 850 Output Total 900 Balance -900 850 Intake: IV 500 Vancomycin 2,500 mg In 500 Sodium Chloride 0.9% 500 ml @ 167 mls/hr IVPB ONCE ONE Rx#:[id number] Intake, IV Titration 50 Amount Piperacillin-Tazobactam 3 50 .375 gm In Dextrose/Water 1 50ml.bag @ 12.5 mls/hr IVPB Q8HR [facility] Rx#: [id number] Oral 300 Output: Urine 900 Other: Voiding Method Urinal Weight 180.2 kg GENERAL: Pt awake and alert, moderately obese, in no acute distress. HEAD: Atraumatic, normocephalic. EYES: Pupils equal, round, sclera anicteric, conjunctiva are normal. ENT: Moist mucous membranes. NECK:Supple without lymphadenopathy or JVD. LUNGS: Breath sounds diminished to auscultation bilaterally with faint expiratory wheeze. HEART: Heart S1, S2, no S3 or S4. Irregularly irregular. No murmurs, rubs or gallops. ABDOMEN: Soft, nontender, nondistended, normoactive bowel sounds. No guarding, no rebound. EXTREMITIES: 1+ peripheral pulses. 3+ pedal edema to left lower extremity and 1 + pedal edema to right lower extremity. Erythema of the left leg extending from foot up into the groin area with warmth to touch and edema. To pretibial area, there are wounds currently without drainage. To the right lower extremity there is erythema and warmth to the mid pretibial area. NEUROLOGICAL: Pt oriented x 3. No focal deficits noted. Strength and sensation grossly intact. PSYCH: Normal mood, normal affect. Results CBC & Chem 7: 04/24/17 05:35 04/24/17 05:35 Labs: Abnormal Lab Results - Last 24 Hours (Table) 04/23/17 04/23/17 04/24/17 Range/Units 16:49 17:00 05:35 WBC 11.8 H (3.8-10.6) k/uL RBC 3.68 L (4.30-5.90) m/uL Hgb 10.7 L (13.0-17.5) gm/dL Hct 35.9 L (39.0-53.0) % MCHC 29.8 L (31.0-37.0) g/dL RDW 15.6 H (11.5-15.5) % Plt Count 101 L (150-450) k/uL BUN (9-20) mg/dL Creatinine (0.66-1.25) mg/dL POC Glucose (mg/dL) 105 H (75-99) mg/dL Urine Protein 1+ H (Negative) 04/24/17 04/24/17 Range/Units 05:35 11:39 WBC (3.8-10.6) k/uL RBC (4.30-5.90) m/uL Hgb (13.0-17.5) gm/dL Hct (39.0-53.0) % MCHC (31.0-37.0) g/dL RDW (11.5-15.5) % Plt Count (150-450) k/uL BUN 34 H (9-20) mg/dL Creatinine 1.46 H (0.66-1.25) mg/dL POC Glucose (mg/dL) 67 L (75-99) mg/dL Urine Protein (Negative) Microbiology - Last 24 Hours (Table) 04/23/17 17:00 Urine Culture - Preliminary Urine,Voided Chest x-ray: report reviewed Thrombosis Risk Factor Assmnt - DVT/VTE Prophylaxis DVT/VTE Prophylaxis: Pharmacologic Prophylaxis ordered - Choose All That Apply Any of the Below Risk Factors Present?: Yes Each Factor Represents 1 point: Obesity (BMI >25), Swollen legs (current) Other Risk Factors: Yes Each Risk Factor Represents 2 Points: Age 61-74 years Thrombosis Risk Factor Assessment Total Risk Factor Score: 4 Thrombosis Risk Factor Assessment Level: Moderate Risk Assessment and Plan Plan: Impression and plan: 1. Cellulitis to left lower extremity and to a lesser extent right lower extremity, failed outpatient treatment. Infectious disease service on consult, recommendations noted. Continue Zosyn and vancomycin. Tetanus status been updated. Continue Silvadene wraps for local wound care and elevation of lower extremities. Continue supportive treatment and pain management. 2. Severe sepsis, present on admission, suspect secondary to cellulitis of lower extremities, failed outpatient treatment. 3. Acute renal failure, present on admission, suspect secondary to sepsis and dehydration. 4. Acute on chronic congestive heart failure, type unknown. Cardiology service consult requested, recommendations pending. Continue Lasix 40 mg IV every 12 hours. Continue Cozaar. 5. History of chronic anemia. 6. Persistent atrial fibrillation. Continue xaralto. 7. Coronary artery disease with previous stent placement. 8. Diabetes mellitus type 2. Continue Glucotrol. 9. History of GERD. 10. Hyperlipidemia. Continue Lipitor. 11. Hypertension. Continue metoprolol. 12. Obstructive sleep apnea. 13. History of anxiety comes stable. 14. History of nicotine dependence. 15. Hypothyroidism. Continue Synthroid. Continue to monitor patient. Continue current medications. Continue to follow with cardiology and infectious disease service. Continue GI and DVT prophylaxis. Repeat CBC and BMP in a.m. The above impression and plan have been discussed and directed by Dr. Mason. Dorcas PHELPS acting as scribe for Dr. Mason.
[2017-04-24 17:05] LABS: Glucose,Whole Blood 74 mg/dL (75-99)
[2017-04-24] MEDS: INSULIN LISPRO (humaLOG) 300 UNIT/3 ML VIAL SQ SCH ×2 (17:16→21:39)
[2017-04-24 20:48] LABS: Glucose,Whole Blood 127 mg/dL (75-99)
[2017-04-24] MEDS: diphenhydrAMINE 25 MG CAP PO PRN (21:40)
--- NOTE | 2017-04-24 22:43 | P.CON ---
Consult Note - . Consult date: 04/24/17 Assessment/Plan:: This is a 71-year-old male who gives history that he had a cat scratch to his left lower leg at the lateral ankle area 2 months ago and he has had ongoing problems with cellulitis. Patient states he has been treated by Dr. Mojica in the outpatient setting and has had oral antibiotics. He does not recall the name of the antibiotic. He states he did have some improvement but yesterday he had sudden onset of redness and swelling and went up into his thigh area and also developed fevers. Patient presented to [facility] emergency center with the above. His white count was 11.6, temperature 101.5. BUN is currently 34 with a creatinine of 1.46 with GFR of 48. Urinalysis was nitrate and leukoesterase negative and urine culture is in process. Blood culture is status received. He had a chest x-ray that showed cardiomegaly with mild heart failure with increased heart size. He did have a recent CTA of the abdominal aorta on April 11 as an outpatient ordered by Dr. Srinivasan which showed ascites adjacent to the liver and spleen. Pancreas was atrophic. Vascular calcifications within the aorta. Inferior vena cava is unremarkable. Most of the bowel unremarkable. 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 The anterior and posterior tibial arteries appear to be present and patent bilaterally although delineation of the origins can not be evaluated with hardening artifact at the level of the bilateral knees. Patient has been started on Zosyn and vancomycin and states that he is improved from yesterday. He does not recall when his tetanus was last updated. He states that his shortness of breath is at his baseline. He is currently on IV Lasix with good urine output. He states his blood sugar has been running in the low 100s at home. Hemoglobin A1c is pending. Please see the consult note is dictated by nurse practitioner Mrs. Gabi Milan. Patient has evidence of significant lower extremity edema being addressed by increased diuresis from his congestive heart failure. There is a significant cellulitis to the left lower extremity with evidence of ascending lymphangitis. Although he has some chronic brawny changes the new findings are consistent with cellulitis. Antibiotic therapy with Zosyn and vancomycin are being utilized cultures are available. Local wound care with Silvadene wrap is applied to help his discomfort. Elevation of the limb at rest. He'll need improvement of his underlying congestive heart failure and chronic compression to prevent further bouts of the cellulitis. I agree with evaluation , assessment and plan is dictated by nurse practitioner Mrs. Gabi Milan.
[2017-04-25] MEDS: VANCOMYCIN 2,500 MG in SODIUM CHLORIDE 0.9% 500 ML IVPB SCH ×2 (00:19→14:28)
[2017-04-25] MEDS: traMADol 50 MG TAB PO PRN ×2 (05:25→20:02)
[2017-04-25 05:56] LABS: Basophils % (A) 0 %; CH 28.4; CHCM 30.5; Eosinophils # (A) 0.3 k/uL (0-0.7); Eosinophils % (A) 3 %; HCT 34.5 % (39.0-53.0); HDW 2.63; HGB 10.8 gm/dL (13.0-17.5); Hypochromasia Moderate; Luc # (Auto) 0.27; Luc % (Auto) 2; Lymphocytes % (A) 8 %; MCH 29.4 pg (25.0-35.0); MCHC 31.4 g/dL (31.0-37.0); MCV 93.7 fL (80.0-100.0); Mean Platelet Volume 8.6; Monocytes # (A) 0.7 k/uL (0-1.0); Monocytes % (A) 6 %; Neutrophils # (A) 9.1 k/uL (1.3-7.7); Neutrophils % (A) 80 %; RBC 3.68 m/uL (4.30-5.90); RDW 15.4 % (11.5-15.5); WBC 11.3 k/uL (3.8-10.6); WBC (Perox) 11.88
[2017-04-25 06:11] LABS: Anion Gap 10 mmol/L; Blood Urea Nitrogen 31 mg/dL (9-20); Calcium 8.2 mg/dL (8.4-10.2); Carbon Dioxide 30 mmol/L (22-30); Chloride 98 mmol/L (98-107); Glucose 82 mg/dL (74-99); Non-African American GFR(MDRD) 52 (>60 ml/min/1.73 sqM); Potassium 3.7 mmol/L (3.5-5.1); Sodium 138 mmol/L (137-145)
[2017-04-25 06:12] LABS: Glucose,Whole Blood 92 mg/dL (75-99)
[2017-04-25] MEDS: LEVOTHYROXINE 100 MCG TAB PO SCH (06:40)
[2017-04-25] MEDS: LEVOTHYROXINE 75 MCG TAB PO SCH (06:40)
[2017-04-25] MEDS: INSULIN LISPRO (humaLOG) 300 UNIT/3 ML VIAL SQ SCH ×4 (07:46→21:34)
[2017-04-25] MEDS: PIPERACILLIN-TAZOBACTAM 3.375 GM in DEXTROSE/WATER 1 50ML.BAG IVPB SCH ×4 (08:01→23:09)
[2017-04-25] MEDS: ATORVASTATIN 80 MG TAB PO SCH (08:06)
[2017-04-25] MEDS: RIVAROXABAN 10 MG TAB PO SCH (08:06)
[2017-04-25] MEDS: LOSARTAN 50 MG TAB PO SCH ×2 (08:06→21:33)
[2017-04-25] MEDS: METOPROLOL TARTRATE 50 MG TAB PO SCH ×2 (08:06→21:33)
[2017-04-25] MEDS: FUROSEMIDE 10 MG/ML 4 ML VIAL IV SCH (08:06)
[2017-04-25] MEDS: SILVER sulfADIAZINE Cream 400 GM 1 APPLIC APPLIC TOPICAL SCH ×2 (08:07→21:35)
--- NOTE | 2017-04-25 11:38 | P.PN ---
Subjective Principal diagnosis: Cellulitis / congestive heart failure This is a 71-year-old gentleman with history of chronic persistent atrial fibrillation, hypertension, hyperlipidemia, hypothyroidism, CAD, diabetes , who presented to the hospital with complaints of left leg swelling, and redness. The patient apparently had a cat scratch to his leg resulting in cellulitis which he's been dealing with for approximately 2 months. The patient was noted in the emergency room to have a temperature of 101.5. Dr. Stevenson is on the case. A cardiology consultation was initially requested because of the chronic atrial fibrillation. A shunt also had a mild element of a chronic diastolic heart failure for which she was on IV Lasix. His weight today is down 1 kg, creatinine 1.3. Blood pressure today 120/50 with a heart rate in the 80s. Overall patient states he is feeling mildly better. Objective - Vital Signs Vital signs: Vital Signs Temp 98.4 F 04/25/17 11:25 Pulse 110 H 04/25/17 11:25 Resp 18 04/25/17 11:25 BP 120/55 04/25/17 11:25 Pulse Ox 94 L 04/25/17 11:25 Intake & Output 04/24/17 04/25/17 04/25/17 18:59 06:59 18:59 Intake Total 1140 500 240 Output Total 1395 Balance 1140 -895 240 Weight 179.5 kg Intake: IV 500 Vancomycin 2,500 mg In 500 Sodium Chloride 0.9% 500 ml @ 167 mls/hr IVPB ONCE ONE Rx#:[id number] Intake, IV Titration 100 500 Amount Piperacillin-Tazobactam 3 100 .375 gm In Dextrose/Water 1 50ml.bag @ 12.5 mls/hr IVPB Q8HR [facility] Rx#: [id number] Vancomycin 2,500 mg In 500 Sodium Chloride 0.9% 500 ml @ 167 mls/hr IVPB Q16H [facility] Rx#:[id number] Oral 540 240 Output: Urine 1395 Other: Voiding Method Urinal # Voids 0 # Bowel Movements 0 - Exam PHYSICAL EXAMINATION: HEENT: Head is atraumatic, normocephalic. Pupils equal, round. Neck is supple. There is no elevated jugular venous pressure. HEART EXAMINATION: Heart S1 and S2 irregularly irregular CHEST EXAMINATION: Lungs reveal diminished air entry to bilateral bases. ABDOMEN: Soft, obese, nontender. Bowel sounds are heard. No organomegaly noted. EXTREMITIES:[ 1+ peripheral pulses with evidence of peripheral edema bilateral dressings and Robbi wraps in place. NEUROLOGIC patient is awake, alert and oriented -3. . - Labs CBC & Chem 7: 04/25/17 05:16 04/25/17 05:16 Labs: Abnormal Lab Results - Last 24 Hours (Table) 04/24/17 04/24/17 04/24/17 Range/Units 11:39 16:51 20:47 WBC (3.8-10.6) k/uL RBC (4.30-5.90) m/uL Hgb (13.0-17.5) gm/dL Hct (39.0-53.0) % Plt Count (150-450) k/uL Neutrophils # (1.3-7.7) k/uL BUN (9-20) mg/dL Creatinine (0.66-1.25) mg/dL POC Glucose (mg/dL) 67 L 74 L 127 H (75-99) mg/dL Calcium (8.4-10.2) mg/dL 04/25/17 04/25/17 Range/Units 05:16 05:16 WBC 11.3 H (3.8-10.6) k/uL RBC 3.68 L (4.30-5.90) m/uL Hgb 10.8 L (13.0-17.5) gm/dL Hct 34.5 L (39.0-53.0) % Plt Count 111 L (150-450) k/uL Neutrophils # 9.1 H (1.3-7.7) k/uL BUN 31 H (9-20) mg/dL Creatinine 1.36 H (0.66-1.25) mg/dL POC Glucose (mg/dL) (75-99) mg/dL Calcium 8.2 L (8.4-10.2) mg/dL Microbiology - Last 24 Hours (Table) 04/23/17 17:00 Urine Culture - Final Urine,Voided 04/23/17 14:44 Blood Culture - Preliminary Blood No Growth after 24 hours Assessment and Plan (1) Sepsis Status: Acute (2) Acute renal failure Status: Acute (3) Diastolic CHF, acute on chronic Status: Acute (4) Chronic anemia Status: Acute (5) CAD (coronary artery disease) Status: Acute (6) Diabetes Status: Acute (7) Hyperlipemia Status: Acute (8) HTN (hypertension) Status: Acute (9) Sleep apnea Status: Acute (10) Anxiety Status: Acute (11) Hypothyroid Status: Acute (12) Nicotine dependence Status: Acute (13) Cellulitis Status: Acute Plan: Cardiology's perspective, we'll discontinue the IV Lasix, the patient was taking 10 mg of Lasix at home daily we will increase this to 20 mg by mouth daily. Patient is on Xarelto for anticoagulation and heart rate is under control. DNP note has been reviewed, I agree with a documented findings and plan of care. Patient was seen and examined.
[2017-04-25 11:58] LABS: Glucose,Whole Blood 111 mg/dL (75-99)
[2017-04-25] MEDS: FUROSEMIDE 20 MG TAB PO SCH (12:12)
--- NOTE | 2017-04-25 15:21 | P.PN ---
Subjective Patient is a 71-year-old male, patient of Dr. Mojica and Dr. Mason in the outpatient setting, presenting to the emergency department with complains of increased left leg swelling, redness, and warmth 1 day associated with fevers. Patient reports history of a cat scratch to his left lower leg approximately 2 months ago please had ongoing problems with cellulitis. Patient was treated with antibiotics in the outpatient setting by Dr. Mojica. Emergency department patient had a fever of 101.5 with evidence of leukocytosis with white count of 11.6. Patient was noted to have anemia with hemoglobin of 11.2 and thrombocytopenia with platelet count of 117. BUN 30 creatinine 1.30. Total bilirubin 2.3. Chest x-ray with evidence of cardiomegaly and mild congestive heart failure. Venous Doppler study of left leg without evidence for acute DVT. Patient was started on IV antibiotics in the form of Zosyn and vancomycin, started on IV Lasix, and blood and urine cultures were drawn. Patient was admitted to the selective care unit with consult for cardiology and Dr. Stevenson for infectious disease service. 04/25/2017: Upon evaluation, patient is feeling better. Denies nausea, vomiting , chills, fevers, shortness of breath, chest pain, or abdominal pain. Left leg pain improved. Patient continues on antibiotics in the form of Zosyn and vancomycin for left lower extremity cellulitis in addition to local wound care and compression. Cardiology continues to follow patient was discontinued patient's IV Lasix and transitioned patient to oral Lasix. Patient continues on Xarelto for anticoagulation. Patient remains afebrile. WBC decreased to 11.3. Hemoglobin stable at 10.8. Renal function improved with creatinine of 1.36. Objective - Vital Signs Vital signs: Vital Signs Temp 98.4 F 04/25/17 11:25 Pulse 110 H 04/25/17 11:25 Resp 18 04/25/17 11:25 BP 120/55 04/25/17 11:25 Pulse Ox 94 L 04/25/17 11:25 Intake & Output 04/24/17 04/25/17 04/25/17 18:59 06:59 18:59 Intake Total 1140 500 240 Output Total 1395 Balance 1140 -895 240 Weight 179.5 kg Intake: IV 500 Vancomycin 2,500 mg In 500 Sodium Chloride 0.9% 500 ml @ 167 mls/hr IVPB ONCE ONE Rx#:[id number] Intake, IV Titration 100 500 Amount Piperacillin-Tazobactam 3 100 .375 gm In Dextrose/Water 1 50ml.bag @ 12.5 mls/hr IVPB Q8HR [facility] Rx#: [id number] Vancomycin 2,500 mg In 500 Sodium Chloride 0.9% 500 ml @ 167 mls/hr IVPB Q16H [facility] Rx#:[id number] Oral 540 240 Output: Urine 1395 Other: Voiding Method Urinal # Voids 1 # Bowel Movements 0 - Exam GENERAL: Pt awake and alert, morbidly obese, in no acute distress. HEAD: Atraumatic, normocephalic. EYES: Pupils equal, round, sclera anicteric, conjunctiva are normal. ENT: Moist mucous membranes. NECK:Supple without lymphadenopathy or JVD. LUNGS: Breath sounds diminished to auscultation bilaterally with faint expiratory wheeze. HEART: Heart S1, S2, no S3 or S4. Irregularly irregular. No murmurs, rubs or gallops. ABDOMEN: Soft, nontender, nondistended, normoactive bowel sounds. No guarding, no rebound. EXTREMITIES: 1+ peripheral pulses. Robbi wrap to bilateral lower extremities. NEUROLOGICAL: Pt oriented x 3. No focal deficits noted. Strength and sensation grossly intact. PSYCH: Normal mood, normal affect. - Labs CBC & Chem 7: 04/25/17 05:16 04/25/17 05:16 Labs: Abnormal Lab Results - Last 24 Hours (Table) 04/24/17 04/24/17 04/25/17 Range/Units 16:51 20:47 05:16 WBC (3.8-10.6) k/uL RBC (4.30-5.90) m/uL Hgb (13.0-17.5) gm/dL Hct (39.0-53.0) % Plt Count (150-450) k/uL Neutrophils # (1.3-7.7) k/uL BUN 31 H (9-20) mg/dL Creatinine 1.36 H (0.66-1.25) mg/dL POC Glucose (mg/dL) 74 L 127 H (75-99) mg/dL Calcium 8.2 L (8.4-10.2) mg/dL 04/25/17 04/25/17 Range/Units 05:16 11:56 WBC 11.3 H (3.8-10.6) k/uL RBC 3.68 L (4.30-5.90) m/uL Hgb 10.8 L (13.0-17.5) gm/dL Hct 34.5 L (39.0-53.0) % Plt Count 111 L (150-450) k/uL Neutrophils # 9.1 H (1.3-7.7) k/uL BUN (9-20) mg/dL Creatinine (0.66-1.25) mg/dL POC Glucose (mg/dL) 111 H (75-99) mg/dL Calcium (8.4-10.2) mg/dL Microbiology - Last 24 Hours (Table) 04/23/17 17:00 Urine Culture - Final Urine,Voided 04/23/17 14:44 Blood Culture - Preliminary Blood No Growth after 24 hours Assessment and Plan Plan: Impression and plan: 1. Cellulitis to left lower extremity and to a lesser extent right lower extremity, failed outpatient treatment. Infectious disease service on consult, recommendations noted. Continue Zosyn and vancomycin. Tetanus status been updated. Continue Silvadene wraps for local wound care and elevation of lower extremities. Continue supportive treatment and pain management. 2. Severe sepsis, present on admission, suspect secondary to cellulitis to lower extremities, failed outpatient treatment. 3. Acute renal failure, present on admission, suspect secondary to sepsis and dehydration, improved. 4. Acute on chronic diastolic heart failure. Cardiology service consult requested, recommendations noted. Lasix has been transitioned to oral 20 mg daily. Continue Cozaar. 5. History of chronic anemia. 6. Persistent atrial fibrillation. Continue xaralto. 7. Coronary artery disease with previous stent placement. 8. Diabetes mellitus type 2. Continue Glucotrol. 9. History of GERD. 10. Hyperlipidemia. Continue Lipitor. 11. Hypertension. Continue metoprolol. 12. Obstructive sleep apnea. 13. History of anxiety comes stable. 14. History of nicotine dependence. 15. Hypothyroidism. Continue Synthroid. Continue to monitor patient. Continue current medications. Continue to follow with cardiology and infectious disease service. Continue GI and DVT prophylaxis. Repeat CBC and BMP in a.m. The above impression and plan have been discussed and directed by Dr. Mason. Dorcas PHELPS acting as scribe for Dr. Mason.
[2017-04-25 17:07] LABS: Glucose,Whole Blood 85 mg/dL (75-99)
[2017-04-25 20:58] LABS: Glucose,Whole Blood 116 mg/dL (75-99)
[2017-04-25] MEDS: diphenhydrAMINE 25 MG CAP PO PRN (23:20)
[2017-04-26] MEDS: traMADol 50 MG TAB PO PRN ×3 (03:56→20:03)
[2017-04-26] MEDS ORDERED: VANCOMYCIN TROUGH DUE 1 EACH MISC MISCELLANE ONE (05:00)
[2017-04-26] MEDS: VANCOMYCIN 2,500 MG in SODIUM CHLORIDE 0.9% 500 ML IVPB SCH (06:00)
[2017-04-26] MEDS: LEVOTHYROXINE 100 MCG TAB PO SCH (06:00)
[2017-04-26] MEDS: LEVOTHYROXINE 75 MCG TAB PO SCH (06:00)
[2017-04-26 06:07] LABS: Basophils % (A) 1 %; CH 28.4; CHCM 31.4; Eosinophils # (A) 0.5 k/uL (0-0.7); Eosinophils % (A) 5 %; HDW 2.85; HGB 10.7 gm/dL (13.0-17.5); Hypochromasia Slight; Luc % (Auto) 3; Lymphocytes # (A) 1.1 k/uL (1.0-4.8); Lymphocytes % (A) 11 %; MCH 29.7 pg (25.0-35.0); MCHC 32.6 g/dL (31.0-37.0); Mean Platelet Volume 8.3; Monocytes # (A) 0.7 k/uL (0-1.0); Monocytes % (A) 8 %; Neutrophils # (A) 6.9 k/uL (1.3-7.7); Neutrophils % (A) 73 %; RBC 3.62 m/uL (4.30-5.90); RDW 15.1 % (11.5-15.5); WBC 9.5 k/uL (3.8-10.6); WBC (Perox) 9.42
[2017-04-26 06:19] LABS: Glucose,Whole Blood 78 mg/dL (75-99)
[2017-04-26] MEDS: INSULIN LISPRO (humaLOG) 300 UNIT/3 ML VIAL SQ SCH ×4 (06:27→20:07)
[2017-04-26 06:32] LABS: Calcium 8.1 mg/dL (8.4-10.2); Potassium 3.7 mmol/L (3.5-5.1)
--- NOTE | 2017-04-26 10:41 | P.PN ---
Subjective Principal diagnosis: Cellulitis / congestive heart failure This is a 71-year-old gentleman with history of chronic persistent atrial fibrillation, hypertension, hyperlipidemia, hypothyroidism, CAD, diabetes , who presented to the hospital with complaints of left leg swelling, and redness. The patient apparently had a cat scratch to his leg resulting in cellulitis which he's been dealing with for approximately 2 months. The patient was noted in the emergency room to have a temperature of 101.5. Dr. Stevenson is on the case. A cardiology consultation was initially requested because of the chronic atrial fibrillation. Patient also had a mild element of a chronic diastolic heart failure for which he was on IV Lasix. IV Lasix was discontinued yesterday and patient was started on oral diuretics. Creatinine today 1.5. Potassium 3.7. Objective - Vital Signs Vital signs: Vital Signs Temp 98.5 F 04/26/17 04:00 Pulse 75 04/26/17 04:00 Resp 20 04/26/17 04:00 BP 113/54 04/26/17 04:00 Pulse Ox 97 04/26/17 07:21 Intake & Output 04/25/17 04/26/17 04/26/17 18:59 06:59 18:59 Intake Total 480 600 Output Total 600 Balance 480 0 Weight 179.5 kg Intake: Intake, IV Titration 600 Amount Piperacillin-Tazobactam 3 100 .375 gm In Dextrose/Water 1 50ml.bag @ 12.5 mls/hr IVPB Q8HR [facility] Rx#: [id number] Vancomycin 2,500 mg In 500 Sodium Chloride 0.9% 500 ml @ 167 mls/hr IVPB Q16H [facility] Rx#:[id number] Oral 480 Output: Urine 600 Other: Voiding Method Urinal # Voids 1 2 # Bowel Movements 0 - Exam PHYSICAL EXAMINATION: HEENT: Head is atraumatic, normocephalic. Pupils equal, round. Neck is supple. There is no elevated jugular venous pressure. HEART EXAMINATION: Heart S1 and S2 irregularly irregular CHEST EXAMINATION: Lungs reveal diminished air entry to bilateral bases. ABDOMEN: Soft, obese, nontender. Bowel sounds are heard. No organomegaly noted. EXTREMITIES:[ 1+ peripheral pulses with evidence of peripheral edema bilateral dressings and Robbi wraps in place. NEUROLOGIC patient is awake, alert and oriented -3. . - Labs CBC & Chem 7: 04/26/17 05:35 04/26/17 05:35 Labs: Abnormal Lab Results - Last 24 Hours (Table) 04/25/17 04/25/17 04/26/17 Range/Units 11:56 20:57 05:35 RBC (4.30-5.90) m/uL Hgb (13.0-17.5) gm/dL Hct (39.0-53.0) % Plt Count (150-450) k/uL Chloride 97 L (98-107) mmol/L Carbon Dioxide 31 H (22-30) mmol/L BUN 32 H (9-20) mg/dL Creatinine 1.50 H (0.66-1.25) mg/dL Glucose 73 L (74-99) mg/dL POC Glucose (mg/dL) 111 H 116 H (75-99) mg/dL Calcium 8.1 L (8.4-10.2) mg/dL 04/26/17 Range/Units 05:35 RBC 3.62 L (4.30-5.90) m/uL Hgb 10.7 L (13.0-17.5) gm/dL Hct 33.0 L (39.0-53.0) % Plt Count 121 L (150-450) k/uL Chloride (98-107) mmol/L Carbon Dioxide (22-30) mmol/L BUN (9-20) mg/dL Creatinine (0.66-1.25) mg/dL Glucose (74-99) mg/dL POC Glucose (mg/dL) (75-99) mg/dL Calcium (8.4-10.2) mg/dL Microbiology - Last 24 Hours (Table) 04/23/17 14:44 Blood Culture - Preliminary Blood No Growth after 48 hours Assessment and Plan (1) Sepsis Status: Acute (2) Acute renal failure Status: Acute (3) Diastolic CHF, acute on chronic Status: Acute (4) Chronic anemia Status: Acute (5) CAD (coronary artery disease) Status: Acute (6) Diabetes Status: Acute (7) Hyperlipemia Status: Acute (8) HTN (hypertension) Status: Acute (9) Sleep apnea Status: Acute (10) Anxiety Status: Acute (11) Hypothyroid Status: Acute (12) Nicotine dependence Status: Acute (13) Cellulitis Status: Acute Plan: Cardiology's perspective, we will continue current dose of by mouth Lasix. Continue Xarelto for anticoagulation. Heart rate is under adequate control. A follow-up appointment will be made with Dr. Srinivasan in the office post discharge. DNP note has been reviewed, I agree with a documented findings and plan of care. Patient was seen and examined.
[2017-04-26] MEDS: ATORVASTATIN 80 MG TAB PO SCH (11:00)
[2017-04-26] MEDS: METOPROLOL TARTRATE 50 MG TAB PO SCH ×2 (11:01→20:03)
[2017-04-26] MEDS: PIPERACILLIN-TAZOBACTAM 3.375 GM in DEXTROSE/WATER 1 50ML.BAG IVPB SCH ×3 (11:01→23:07)
[2017-04-26] MEDS: SILVER sulfADIAZINE Cream 400 GM 1 APPLIC APPLIC TOPICAL SCH ×2 (11:01→20:09)
[2017-04-26] MEDS: FUROSEMIDE 20 MG TAB PO SCH (11:01)
[2017-04-26] MEDS: LOSARTAN 50 MG TAB PO SCH ×2 (11:01→20:03)
[2017-04-26] MEDS: RIVAROXABAN 10 MG TAB PO SCH (11:01)
[2017-04-26 12:10] LABS: Glucose,Whole Blood 114 mg/dL (75-99)
--- NOTE | 2017-04-26 16:03 | P.PN ---
Subjective Patient is a 71-year-old male, patient of Dr. Mojica and Dr. Mason in the outpatient setting, presenting to the emergency department with complains of increased left leg swelling, redness, and warmth 1 day associated with fevers. Patient reports history of a cat scratch to his left lower leg approximately 2 months ago please had ongoing problems with cellulitis. Patient was treated with antibiotics in the outpatient setting by Dr. Mojica. Emergency department patient had a fever of 101.5 with evidence of leukocytosis with white count of 11.6. Patient was noted to have anemia with hemoglobin of 11.2 and thrombocytopenia with platelet count of 117. BUN 30 creatinine 1.30. Total bilirubin 2.3. Chest x-ray with evidence of cardiomegaly and mild congestive heart failure. Venous Doppler study of left leg without evidence for acute DVT. Patient was started on IV antibiotics in the form of Zosyn and vancomycin, started on IV Lasix, and blood and urine cultures were drawn. Patient was admitted to the selective care unit with consult for cardiology and Dr. Stevenson for infectious disease service. 04/25/2017: Upon evaluation, patient is feeling better. Denies nausea, vomiting , chills, fevers, shortness of breath, chest pain, or abdominal pain. Left leg pain improved. Patient continues on antibiotics in the form of Zosyn and vancomycin for left lower extremity cellulitis in addition to local wound care and compression. Cardiology continues to follow patient was discontinued patient's IV Lasix and transitioned patient to oral Lasix. Patient continues on Xarelto for anticoagulation. Patient remains afebrile. WBC decreased to 11.3. Hemoglobin stable at 10.8. Renal function improved with creatinine of 1.36. 12/01/2016: Upon evaluation, patient is complaining of left posterior leg pain below his knee. Denies nausea, vomiting, chills, shortness of breath, cough, chest pain, or abdominal pain. Patient continues on oral Lasix and Xarelto for anticoagulation. Continue to have low-grade temp of 100 last night. No evidence of leukocytosis. Hemoglobin stable at 10.7. Creatinine increased to 1.5. Objective - Vital Signs Vital signs: Vital Signs Temp 98.4 F 04/26/17 12:00 Pulse 61 04/26/17 12:00 Resp 18 04/26/17 12:00 BP 98/52 04/26/17 12:00 Pulse Ox 98 04/26/17 12:00 Intake & Output 04/25/17 04/26/17 04/26/17 18:59 06:59 18:59 Intake Total 480 600 773 Output Total 600 250 Balance 480 0 523 Weight 179.5 kg Intake: Intake, IV Titration 600 300 Amount Piperacillin-Tazobactam 3 100 50 .375 gm In Dextrose/Water 1 50ml.bag @ 12.5 mls/hr IVPB Q8HR [facility] Rx#: [id number] Vancomycin 2,250 mg In 250 Sodium Chloride 0.9% 500 ml @ 167 mls/hr IVPB Q24H [facility] Rx#:[id number] Vancomycin 2,500 mg In 500 Sodium Chloride 0.9% 500 ml @ 167 mls/hr IVPB Q16H [facility] Rx#:[id number] Oral 480 473 Output: Urine 600 250 Other: Voiding Method Urinal # Voids 1 2 # Bowel Movements 0 - Exam GENERAL: Pt awake and alert, morbidly obese, in no acute distress. HEAD: Atraumatic, normocephalic. EYES: Pupils equal, round, sclera anicteric, conjunctiva are normal. ENT: Moist mucous membranes. NECK:Supple without lymphadenopathy or JVD. LUNGS: Breath sounds diminished to auscultation bilaterally with faint expiratory wheeze. HEART: Heart S1, S2, no S3 or S4. Irregularly irregular. No murmurs, rubs or gallops. ABDOMEN: Soft, nontender, nondistended, normoactive bowel sounds. No guarding, no rebound. EXTREMITIES: 1+ peripheral pulses. Robbi wrap to bilateral lower extremities. NEUROLOGICAL: Pt oriented x 3. No focal deficits noted. Strength and sensation grossly intact. PSYCH: Normal mood, normal affect. - Labs CBC & Chem 7: 04/26/17 05:35 04/26/17 05:35 Labs: Abnormal Lab Results - Last 24 Hours (Table) 04/25/17 04/26/17 04/26/17 Range/Units 20:57 05:35 05:35 RBC 3.62 L (4.30-5.90) m/uL Hgb 10.7 L (13.0-17.5) gm/dL Hct 33.0 L (39.0-53.0) % Plt Count 121 L (150-450) k/uL Chloride 97 L (98-107) mmol/L Carbon Dioxide 31 H (22-30) mmol/L BUN 32 H (9-20) mg/dL Creatinine 1.50 H (0.66-1.25) mg/dL Glucose 73 L (74-99) mg/dL POC Glucose (mg/dL) 116 H (75-99) mg/dL Calcium 8.1 L (8.4-10.2) mg/dL 04/26/17 Range/Units 12:02 RBC (4.30-5.90) m/uL Hgb (13.0-17.5) gm/dL Hct (39.0-53.0) % Plt Count (150-450) k/uL Chloride (98-107) mmol/L Carbon Dioxide (22-30) mmol/L BUN (9-20) mg/dL Creatinine (0.66-1.25) mg/dL Glucose (74-99) mg/dL POC Glucose (mg/dL) 114 H (75-99) mg/dL Calcium (8.4-10.2) mg/dL Microbiology - Last 24 Hours (Table) 04/23/17 14:44 Blood Culture - Preliminary Blood No Growth after 48 hours Assessment and Plan Plan: Impression and plan: 1. Cellulitis to left lower extremity and to a lesser extent right lower extremity, failed outpatient treatment. Infectious disease service on consult, recommendations noted. Continue Zosyn and vancomycin. Tetanus status been updated. Continue Silvadene wraps for local wound care and elevation of lower extremities. Continue supportive treatment and pain management. 2. Severe sepsis, present on admission, suspect secondary to cellulitis to lower extremities, failed outpatient treatment. 3. Acute renal failure, present on admission, suspect secondary to sepsis and dehydration, improved. 4. Acute on chronic diastolic heart failure. Cardiology service consult requested, recommendations noted. Lasix has been transitioned to oral 20 mg daily. Continue Cozaar. 5. History of chronic anemia. 6. Persistent atrial fibrillation. Continue xaralto. 7. Coronary artery disease with previous stent placement. 8. Diabetes mellitus type 2. Continue Glucotrol. 9. History of GERD. 10. Hyperlipidemia. Continue Lipitor. 11. Hypertension. Continue metoprolol. 12. Obstructive sleep apnea. 13. History of anxiety comes stable. 14. History of nicotine dependence. 15. Hypothyroidism. Continue Synthroid. Continue to monitor patient. Continue current medications. Continue to follow with cardiology and infectious disease service. Continue supportive treatment and pain management. Continue GI and DVT prophylaxis. Repeat CBC and BMP in a.m. Possibly discharge in next 24 hours. The above impression and plan have been discussed and directed by Dr. Mason. Dorcas PHELPS acting as scribe for Dr. Mason.
[2017-04-26 16:56] LABS: Glucose,Whole Blood 91 mg/dL (75-99)
[2017-04-26 20:15] LABS: Glucose,Whole Blood 81 mg/dL (75-99)
[2017-04-26 21:07] LABS: Glucose,Whole Blood 92 mg/dL (75-99)
[2017-04-27 06:11] LABS: Glucose,Whole Blood 90 mg/dL (75-99)
[2017-04-27] MEDS: LEVOTHYROXINE 75 MCG TAB PO SCH (06:12)
[2017-04-27] MEDS: LEVOTHYROXINE 100 MCG TAB PO SCH (06:12)
[2017-04-27] MEDS: INSULIN LISPRO (humaLOG) 300 UNIT/3 ML VIAL SQ SCH ×4 (06:13→20:45)
[2017-04-27 07:02] LABS: Basophils % (A) 0 %; CH 28.3; CHCM 30.2; Eosinophils # (A) 0.4 k/uL (0-0.7); Eosinophils % (A) 4 %; HCT 35.3 % (39.0-53.0); HDW 2.86; HGB 10.8 gm/dL (13.0-17.5); Hypochromasia Marked; Luc # (Auto) 0.28; Luc % (Auto) 3; Lymphocytes # (A) 0.9 k/uL (1.0-4.8); Lymphocytes % (A) 9 %; MCH 28.9 pg (25.0-35.0); MCHC 30.7 g/dL (31.0-37.0); MCV 94.1 fL (80.0-100.0); Mean Platelet Volume 8.3; Monocytes # (A) 0.9 k/uL (0-1.0); Monocytes % (A) 9 %; Neutrophils # (A) 7.4 k/uL (1.3-7.7); Neutrophils % (A) 74 %; RBC 3.75 m/uL (4.30-5.90); WBC 10.1 k/uL (3.8-10.6); WBC (Perox) 10.43
[2017-04-27 07:31] LABS: Calcium 8.2 mg/dL (8.4-10.2); Magnesium 1.7 mg/dL (1.6-2.3); Potassium 4.3 mmol/L (3.5-5.1)
[2017-04-27] MEDS: PIPERACILLIN-TAZOBACTAM 3.375 GM in DEXTROSE/WATER 1 50ML.BAG IVPB SCH ×3 (08:48→23:07)
[2017-04-27] MEDS: traMADol 50 MG TAB PO PRN ×3 (08:48→20:39)
[2017-04-27] MEDS ORDERED: Magnesium Replacement Protocol 1 EACH MISC MISCELLANE PRN (09:02)
[2017-04-27] MEDS: ATORVASTATIN 80 MG TAB PO SCH (09:13)
[2017-04-27] MEDS: RIVAROXABAN 10 MG TAB PO SCH (09:13)
[2017-04-27] MEDS: METOPROLOL TARTRATE 50 MG TAB PO SCH ×2 (09:13→20:32)
[2017-04-27] MEDS: LOSARTAN 50 MG TAB PO SCH ×2 (09:16→20:31)
[2017-04-27] MEDS: FUROSEMIDE 20 MG TAB PO SCH (09:47)
[2017-04-27] MEDS: ACETAMINOPHEN TAB 325 MG TAB PO PRN (10:08)
[2017-04-27] MEDS: MAGNESIUM SULFATE-D5W PMX 1 GM in DEXTROSE/WATER 1 100ML.BAG IVPB SCH ×2 (10:08→16:39)
[2017-04-27 11:53] LABS: Glucose,Whole Blood 112 mg/dL (75-99)
[2017-04-27] MEDS: SILVER sulfADIAZINE Cream 400 GM 1 APPLIC APPLIC TOPICAL SCH ×2 (12:29→20:46)
--- NOTE | 2017-04-27 12:32 | P.PN ---
Subjective Patient is a 71-year-old male, patient of Dr. Mojica and Dr. Mason in the outpatient setting, presenting to the emergency department with complains of increased left leg swelling, redness, and warmth 1 day associated with fevers. Patient reports history of a cat scratch to his left lower leg approximately 2 months ago please had ongoing problems with cellulitis. Patient was treated with antibiotics in the outpatient setting by Dr. Mojica. Emergency department patient had a fever of 101.5 with evidence of leukocytosis with white count of 11.6. Patient was noted to have anemia with hemoglobin of 11.2 and thrombocytopenia with platelet count of 117. BUN 30 creatinine 1.30. Total bilirubin 2.3. Chest x-ray with evidence of cardiomegaly and mild congestive heart failure. Venous Doppler study of left leg without evidence for acute DVT. Patient was started on IV antibiotics in the form of Zosyn and vancomycin, started on IV Lasix, and blood and urine cultures were drawn. Patient was admitted to the selective care unit with consult for cardiology and Dr. Stevenson for infectious disease service. 04/25/2017: Upon evaluation, patient is feeling better. Denies nausea, vomiting , chills, fevers, shortness of breath, chest pain, or abdominal pain. Left leg pain improved. Patient continues on antibiotics in the form of Zosyn and vancomycin for left lower extremity cellulitis in addition to local wound care and compression. Cardiology continues to follow patient was discontinued patient's IV Lasix and transitioned patient to oral Lasix. Patient continues on Xarelto for anticoagulation. Patient remains afebrile. WBC decreased to 11.3. Hemoglobin stable at 10.8. Renal function improved with creatinine of 1.36. 12/01/2016: Upon evaluation, patient is complaining of left posterior leg pain below his knee. Denies nausea, vomiting, chills, shortness of breath, cough, chest pain, or abdominal pain. Patient continues on oral Lasix and Xarelto for anticoagulation. Continue to have low-grade temp of 100 last night. No evidence of leukocytosis. Hemoglobin stable at 10.7. Creatinine increased to 1.5. 01/01/2017: Patient is evaluated and selective care unit. Patient continues to complain of left posterior leg pain below his knee but states it's better than yesterday. Patient complains of having dry lips. Denies nausea, vomiting, chills, shortness of breath, cough, chest pain, or abdominal pain. Patient reports good appetite. Patient did have a temperature of 100.8 at 9:00 this morning. No evidence of leukocytosis. Creatinine increased to 1.82. Objective - Vital Signs Vital signs: Vital Signs Temp 98.2 F 04/27/17 12:00 Pulse 67 04/27/17 12:00 Resp 16 04/27/17 12:00 BP 101/55 04/27/17 12:00 Pulse Ox 95 04/27/17 12:00 Intake & Output 04/26/17 04/27/17 04/27/17 18:59 06:59 18:59 Intake Total 773 370 237 Output Total 400 600 Balance 373 370 -363 Weight 181.8 kg Intake: IV 320 0.9 normal saline @20 mls 320 / hr Intake, IV Titration 300 50 Amount Piperacillin-Tazobactam 3 50 50 .375 gm In Dextrose/Water 1 50ml.bag @ 12.5 mls/hr IVPB Q8HR [facility] Rx#: [id number] Vancomycin 2,250 mg In 250 Sodium Chloride 0.9% 500 ml @ 167 mls/hr IVPB Q24H [facility] Rx#:[id number] Oral 473 237 Output: Urine 400 600 Other: Voiding Method Toilet Toilet Urinal Urinal - Exam GENERAL: Pt awake and alert, morbidly obese, in no acute distress. HEAD: Atraumatic, normocephalic. EYES: Pupils equal, round, sclera anicteric, conjunctiva are normal. ENT: Moist mucous membranes. NECK:Supple without lymphadenopathy or JVD. LUNGS: Breath sounds diminished to auscultation bilaterally. HEART: Heart S1, S2, no S3 or S4. Irregularly irregular. No murmurs, rubs or gallops. ABDOMEN: Soft, nontender, nondistended, normoactive bowel sounds. No guarding, no rebound. EXTREMITIES: 1+ peripheral pulses. Robbi wrap to bilateral lower extremities. NEUROLOGICAL: Pt oriented x 3. No focal deficits noted. Strength and sensation grossly intact. PSYCH: Normal mood, normal affect. - Labs CBC & Chem 7: 04/27/17 06:06 04/27/17 06:06 Labs: Abnormal Lab Results - Last 24 Hours (Table) 06/01/1204/27/17 04/27/17 Range/Units 06:06 06:06 11:48 RBC 3.75 L (4.30-5.90) m/uL Hgb 10.8 L (13.0-17.5) gm/dL Hct 35.3 L (39.0-53.0) % MCHC 30.7 L (31.0-37.0) g/dL Plt Count 141 L (150-450) k/uL Lymphocytes # 0.9 L (1.0-4.8) k/uL Sodium 136 L (137-145) mmol/L Chloride 95 L (98-107) mmol/L Carbon Dioxide 33 H (22-30) mmol/L BUN 38 H (9-20) mg/dL Creatinine 1.82 H (0.66-1.25) mg/dL POC Glucose (mg/dL) 112 H (75-99) mg/dL Calcium 8.2 L (8.4-10.2) mg/dL Microbiology - Last 24 Hours (Table) 04/23/17 14:44 Blood Culture - Preliminary Blood No Growth after 72 hours Assessment and Plan Plan: Impression and plan: 1. Cellulitis to left lower extremity and to a lesser extent right lower extremity, failed outpatient treatment. Infectious disease service on consult, recommendations noted. Continue Zosyn and vancomycin. Tetanus status been updated. Continue Silvadene wraps for local wound care and elevation of lower extremities. Continue supportive treatment and pain management. 2. Severe sepsis, present on admission, suspect secondary to cellulitis to lower extremities, failed outpatient treatment. 3. Acute renal failure, present on admission, suspect secondary to sepsis and dehydration. Creatinine increased to 1.82. 4. Acute on chronic diastolic heart failure. Cardiology service consult requested, recommendations noted. Will hold Lasix for today. Await cardiology recommendations for future dose. Continue Cozaar. 5. History of chronic anemia. 6. Persistent atrial fibrillation. Continue xaralto. 7. Coronary artery disease with previous stent placement. 8. Diabetes mellitus type 2. Continue Glucotrol. 9. History of GERD. 10. Hyperlipidemia. Continue Lipitor. 11. Hypertension. Continue metoprolol. 12. Obstructive sleep apnea. 13. History of anxiety comes stable. 14. History of nicotine dependence. 15. Hypothyroidism. Continue Synthroid. Continue to monitor patient. Continue current medications. Continue to follow with cardiology and infectious disease service. Continue supportive treatment and pain management. Continue GI and DVT prophylaxis. Repeat CBC and BMP in a.m. Possibly discharge in next 24 hours. The above impression and plan have been discussed and directed by Dr. Mason. Dorcas PHELPS acting as scribe for Dr. Mason.
--- NOTE | 2017-04-27 13:06 | P.PN ---
Subjective Principal diagnosis: cellulitis/congestive heart failure This is a 71-year-old gentleman with a history of chronic atrial fibrillation, hypertension, hyperlipidemia, hypothyroidism, CAD, diabetes. He presented to the hospital with complaints of left leg swelling and redness. The patient apparently had a cat scratch to his left leg resulting in cellulitis which she's been dealing with for approximately 2 months. Patient was noted in the emergency room to have temperature of 101.5. Infectious diseases on the case. Cardiology consult was requested because of chronic atrial fibrillation as well as mild diastolic heart failure for which she was put on IV Lasix. IV Lasix was discontinued 2 days ago and the patient has been on Lasix 20 mg by mouth daily. Creatinine today is 1.82. Objective - Vital Signs Vital signs: Vital Signs Temp 98.2 F 04/27/17 12:00 Pulse 67 04/27/17 12:00 Resp 16 04/27/17 12:00 BP 101/55 04/27/17 12:00 Pulse Ox 95 04/27/17 12:00 Intake & Output 04/26/17 04/27/17 04/27/17 18:59 06:59 18:59 Intake Total 773 370 237 Output Total 400 600 Balance 373 370 -363 Weight 181.8 kg Intake: IV 320 0.9 normal saline @20 mls 320 / hr Intake, IV Titration 300 50 Amount Piperacillin-Tazobactam 3 50 50 .375 gm In Dextrose/Water 1 50ml.bag @ 12.5 mls/hr IVPB Q8HR [facility] Rx#: [id number] Vancomycin 2,250 mg In 250 Sodium Chloride 0.9% 500 ml @ 167 mls/hr IVPB Q24H [facility] Rx#:[id number] Oral 473 237 Output: Urine 400 600 Other: Voiding Method Toilet Toilet Urinal Urinal - Exam PHYSICAL EXAMINATION: HEENT: Head is atraumatic, normocephalic. Pupils equal, round. Neck is supple. There is no elevated jugular venous pressure. HEART EXAMINATION: Heart sounds irregularly irregular, S1 and S2 normal. No murmur or gallop heard. CHEST EXAMINATION: Lungs reveal diminished air entry bilateral lower lobes. No chest wall tenderness is noted on palpation or with deep breathing. ABDOMEN: Soft, obese, nontender. Bowel sounds are heard. No organomegaly noted. EXTREMITIES: Diminished peripheral pulses with evidence of peripheral edema with evidence of cellulitis, dressings and Robbi wraps in place.. NEUROLOGIC patient is awake, alert and oriented x3. . - Labs CBC & Chem 7: 04/27/17 06:06 04/27/17 06:06 Labs: Abnormal Lab Results - Last 24 Hours (Table) 04/27/17 04/27/17 04/27/17 Range/Units 06:06 06:06 11:48 RBC 3.75 L (4.30-5.90) m/uL Hgb 10.8 L (13.0-17.5) gm/dL Hct 35.3 L (39.0-53.0) % MCHC 30.7 L (31.0-37.0) g/dL Plt Count 141 L (150-450) k/uL Lymphocytes # 0.9 L (1.0-4.8) k/uL Sodium 136 L (137-145) mmol/L Chloride 95 L (98-107) mmol/L Carbon Dioxide 33 H (22-30) mmol/L BUN 38 H (9-20) mg/dL Creatinine 1.82 H (0.66-1.25) mg/dL POC Glucose (mg/dL) 112 H (75-99) mg/dL Calcium 8.2 L (8.4-10.2) mg/dL Microbiology - Last 24 Hours (Table) 04/23/17 14:44 Blood Culture - Preliminary Blood No Growth after 72 hours Assessment and Plan Plan: Assessment and plan #1 sepsis #2 acute renal failure #3 acute on chronic diastolic congestive heart failure #4 chronic anemia #5 diabetes mellitus #6 hypertension #7 hyperlipidemia #8 CAD #9 obesity #10 sleep apnea #11 cellulitis From cardiology's perspective, we will continue current dose of by mouth Lasix. Continue Xarelto or anticoagulation. Heart rate is under adequate control. Patient will follow-up with Dr. Srinivasan in the office as an outpatient. The above dictated assessment and findings were discussed with signing physician. The impression and plan of care have been directed as dictated. Quynh Kerr, Nurse Practitioner, acting as scribe for signing physician.
[2017-04-27] MEDS: VANCOMYCIN 2,250 MG in SODIUM CHLORIDE 0.9% 500 ML IVPB SCH (13:28)
[2017-04-27 16:52] LABS: Glucose,Whole Blood 122 mg/dL (75-99)
--- NOTE | 2017-04-27 18:41 | P.PN ---
Subjective Principal diagnosis: cellulitis left leg This is a 71-year-old male who gives history that he had a cat scratch to his left lower leg at the lateral ankle area 2 months ago and he has had ongoing problems with cellulitis. Patient states he has been treated by Dr. Mojica in the outpatient setting and has had oral antibiotics. He does not recall the name of the antibiotic. He states he did have some improvement but yesterday he had sudden onset of redness and swelling and went up into his thigh area and also developed fevers. Patient presented to [facility] emergency center with the above. His white count was 11.6, temperature 101.5. BUN is currently 34 with a creatinine of 1.46 with GFR of 48. Urinalysis was nitrate and leukoesterase negative and urine culture is in process. Blood culture is status received. He had a chest x-ray that showed cardiomegaly with mild heart failure with increased heart size. He did have a recent CTA of the abdominal aorta on April 11 as an outpatient ordered by Dr. Srinivasan which showed ascites adjacent to the liver and spleen. Pancreas was atrophic. Vascular calcifications within the aorta. Inferior vena cava is unremarkable. Most of the bowel unremarkable. 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 The anterior and posterior tibial arteries appear to be present and patent bilaterally although delineation of the origins can not be evaluated with hardening artifact at the level of the bilateral knees. Patient has been started on Zosyn and vancomycin and states that he is improved from yesterday. He does not recall when his tetanus was last updated. He states that his shortness of breath is at his baseline. He is currently on IV Lasix with good urine output. He states his blood sugar has been running in the low 100s at home. hemoglobin A1c was 6. Now showing some improvement but did have a temperature 100.8. Objective - Vital Signs Vital signs: Vital Signs Temp 96.9 F L 04/27/17 18:18 Pulse 73 04/27/17 18:18 Resp 20 04/27/17 18:18 BP 103/51 04/27/17 18:18 Pulse Ox 99 04/27/17 18:18 Intake & Output 04/26/17 04/27/17 04/27/17 18:59 06:59 18:59 Intake Total 773 370 417 Output Total 400 1050 Balance 373 370 -633 Weight 181.8 kg Intake: IV 320 0.9 normal saline @20 mls 320 / hr Intake, IV Titration 300 50 Amount Piperacillin-Tazobactam 3 50 50 .375 gm In Dextrose/Water 1 50ml.bag @ 12.5 mls/hr IVPB Q8HR [facility] Rx#: [id number] Vancomycin 2,250 mg In 250 Sodium Chloride 0.9% 500 ml @ 167 mls/hr IVPB Q24H [facility] Rx#:[id number] Oral 473 417 Output: Urine 400 1050 Other: Voiding Method Toilet Toilet Urinal Urinal - Exam Gen: This is a morbidly obese 71-year-old male. He is sitting in bed and appears to be somewhat comfortable. HEENT: Head is atraumatic, normocephalic. Pupils equal, round. Sclerae is anicteric. NECK: Supple. No JVD. No lymphadenopathy. No thyromegaly. LUNGS: Diminished bilaterally with expiratory wheeze. No intercostal retractions. HEART: Irregular rate and rhythm. No murmur. ABDOMEN: Soft. Bowel sounds are present. No masses. No tenderness. EXTREMITIES: 3+ pedal edema to the left lower extremity and 1+ to the right lower extremity. There is erythema on the left leg extending from the foot up into the groin area with warmth to the touch and edema. To the pretibial area, there are wounds currently without drainage. The right lower extremity, there is erythema and warmth to the mid pretibial area. NEUROLOGICAL: Patient is awake, alert and oriented - Labs CBC & Chem 7: 04/27/17 06:06 04/27/17 06:06 Labs: Abnormal Lab Results - Last 24 Hours (Table) 04/27/17 04/27/17 04/27/17 Range/Units 06:06 06:06 11:48 RBC 3.75 L (4.30-5.90) m/uL Hgb 10.8 L (13.0-17.5) gm/dL Hct 35.3 L (39.0-53.0) % MCHC 30.7 L (31.0-37.0) g/dL Plt Count 141 L (150-450) k/uL Lymphocytes # 0.9 L (1.0-4.8) k/uL Sodium 136 L (137-145) mmol/L Chloride 95 L (98-107) mmol/L Carbon Dioxide 33 H (22-30) mmol/L BUN 38 H (9-20) mg/dL Creatinine 1.82 H (0.66-1.25) mg/dL POC Glucose (mg/dL) 112 H (75-99) mg/dL Calcium 8.2 L (8.4-10.2) mg/dL 04/27/17 Range/Units 16:47 RBC (4.30-5.90) m/uL Hgb (13.0-17.5) gm/dL Hct (39.0-53.0) % MCHC (31.0-37.0) g/dL Plt Count (150-450) k/uL Lymphocytes # (1.0-4.8) k/uL Sodium (137-145) mmol/L Chloride (98-107) mmol/L Carbon Dioxide (22-30) mmol/L BUN (9-20) mg/dL Creatinine (0.66-1.25) mg/dL POC Glucose (mg/dL) 122 H (75-99) mg/dL Calcium (8.4-10.2) mg/dL Microbiology - Last 24 Hours (Table) 04/23/17 14:44 Blood Culture - Preliminary Blood No Growth after 96 hours Laboratory Results WBC 10.1 k/uL (3.8-10.6) 04/27/17 06:06 RBC 3.75 m/uL (4.30-5.90) L 04/27/17 06:06 Hgb 10.8 gm/dL (13.0-17.5) L 04/27/17 06:06 Hct 35.3 % (39.0-53.0) L 04/27/17 06:06 MCV 94.1 fL (80.0-100.0) 04/27/17 06:06 MCH 28.9 pg (25.0-35.0) 04/27/17 06:06 MCHC 30.7 g/dL (31.0-37.0) L 04/27/17 06:06 RDW 15.0 % (11.5-15.5) 04/27/17 06:06 Plt Count 141 k/uL (150-450) L 04/27/17 06:06 Neutrophils % 74 % 04/27/17 06:06 Lymphocytes % 9 % 04/27/17 06:06 Monocytes % 9 % 04/27/17 06:06 Eosinophils % 4 % 04/27/17 06:06 Basophils % 0 % 04/27/17 06:06 Neutrophils # 7.4 k/uL (1.3-7.7) 04/27/17 06:06 Lymphocytes # 0.9 k/uL (1.0-4.8) L 04/27/17 06:06 Monocytes # 0.9 k/uL (0-1.0) 04/27/17 06:06 Eosinophils # 0.4 k/uL (0-0.7) 04/27/17 06:06 Basophils # 0.0 k/uL (0-0.2) 04/27/17 06:06 Hypochromasia Marked 04/27/17 06:06 PT 24.8 sec (9.0-12.0) H 04/23/17 14:44 INR 2.6 (<1.1) 04/23/17 14:44 APTT 67.7 sec (22.0-30.0) H 04/23/17 14:44 Sodium 136 mmol/L (137-145) L 04/27/17 06:06 Potassium 4.3 mmol/L (3.5-5.1) 04/27/17 06:06 Chloride 95 mmol/L (98-107) L 04/27/17 06:06 Carbon Dioxide 33 mmol/L (22-30) H 04/27/17 06:06 Anion Gap 8 mmol/L 04/27/17 06:06 BUN 38 mg/dL (9-20) H 04/27/17 06:06 Creatinine 1.82 mg/dL (0.66-1.25) H 04/27/17 06:06 Est GFR (MDRD) Af Amer 45 (>60 ml/min/1.73 sqM) 04/27/17 06:06 Est GFR (MDRD) Non-Af 37 (>60 ml/min/1.73 sqM) 04/27/17 06:06 Glucose 86 mg/dL (74-99) 04/27/17 06:06 POC Glucose (mg/dL) 122 mg/dL (75-99) H 04/27/17 16:47 POC Glu Dispatch Clerk ID Jenny Mahan 04/27/17 16:[address] Glu mg/dL 126 mg/dL 04/24/17 05:35 Hemoglobin A1c 6.0 % (4.2-6.1) 04/24/17 05:35 Plasma Lactic Acid Juan 1.0 mmol/L (0.7-2.0) 04/24/17 05:35 Calcium 8.2 mg/dL (8.4-10.2) L 04/27/17 06:06 Magnesium 1.7 mg/dL (1.6-2.3) 04/27/17 06:06 Total Bilirubin 2.3 mg/dL (0.2-1.3) H 04/23/17 14:44 AST 30 U/L (17-59) 04/23/17 14:44 ALT 26 U/L (21-72) 04/23/17 14:44 Alkaline Phosphatase 63 U/L (38-126) 04/23/17 14:44 NT-Pro-B Natriuret Pep 6640 pg/mL 04/23/17 14:44 Total Protein 6.8 g/dL (6.3-8.2) 04/23/17 14:44 Albumin 3.7 g/dL (3.5-5.0) 04/23/17 14:44 Urine Color Yellow 04/23/17 17:00 Urine Appearance Clear (Clear) 04/23/17 17:00 Urine pH 8.0 (5.0-8.0) 04/23/17 17:00 Ur Specific [place] 1.017 (1.001-1.035) 04/23/17 17:00 Urine Protein 1+ (Negative) H 04/23/17 17:00 Urine Glucose (UA) Negative (Negative) 04/23/17 17:00 Urine Ketones Negative (Negative) 04/23/17 17:00 Urine Blood Negative (Negative) 04/23/17 17:00 Urine Nitrite Negative (Negative) 04/23/17 17:00 Urine Bilirubin Negative (Negative) 04/23/17 17:00 Urine Urobilinogen 4.0 mg/dL (<2.0) 04/23/17 17:00 Ur Leukocyte Esterase Negative (Negative) 04/23/17 17:00 Urine WBC 1 /hpf (0-5) 04/23/17 17:00 Ur Squamous Epith Cells <1 /hpf (0-4) 04/23/17 17:00 Granular Casts 1 /lpf (0) 04/23/17 17:00 Vancomycin Trough 28.9 ug/mL 04/26/17 05:35 Microbiology 04/23/17 14:44 Blood Blood Culture - Preliminary No Growth after 96 hours 04/23/17 17:00 Urine,Voided Urine Culture - Final Assessment and Plan (1) Cellulitis Narrative/Plan: 71-year-old male who has significant difficulties with significant edema related to volume overload and peripheral vascular disease. He is not feeling better except she did have a temperature 100.8. Overall improved. Edema is improved. Erythema is improving. Creatininei ncreased possibly due to the diuresis. We'll monitor closely. Cultures are negative at this point in time. If fever resolves will likely be able to transition to oral antibiotics soon. Continue with the Silvadene wraps which is allowed improvement. Status: Acute
[2017-04-27 20:42] LABS: Glucose,Whole Blood 82 mg/dL (75-99)
[2017-04-28] MEDS: LEVOTHYROXINE 100 MCG TAB PO SCH (06:24)
[2017-04-28] MEDS: LEVOTHYROXINE 75 MCG TAB PO SCH (06:24)
[2017-04-28] MEDS: INSULIN LISPRO (humaLOG) 300 UNIT/3 ML VIAL SQ SCH ×4 (07:30→22:10)
[2017-04-28 07:43] LABS: Glucose,Whole Blood 69 mg/dL (75-99)
[2017-04-28 07:57] LABS: Glucose,Whole Blood 83 mg/dL (75-99)
[2017-04-28] MEDS: RIVAROXABAN 10 MG TAB PO SCH (08:10)
[2017-04-28] MEDS: LOSARTAN 50 MG TAB PO SCH ×2 (08:10→22:10)
[2017-04-28] MEDS: ACETAMINOPHEN TAB 325 MG TAB PO PRN (08:10)
[2017-04-28] MEDS: ATORVASTATIN 80 MG TAB PO SCH (08:10)
[2017-04-28] MEDS: PIPERACILLIN-TAZOBACTAM 3.375 GM in DEXTROSE/WATER 1 50ML.BAG IVPB SCH ×3 (08:10→23:35)
[2017-04-28] MEDS: FUROSEMIDE 20 MG TAB PO SCH (08:10)
[2017-04-28] MEDS: METOPROLOL TARTRATE 50 MG TAB PO SCH ×2 (08:10→22:10)
[2017-04-28] MEDS: SILVER sulfADIAZINE Cream 400 GM 1 APPLIC APPLIC TOPICAL SCH ×2 (08:20→22:24)
[2017-04-28 08:58] LABS: Calcium 8.3 mg/dL (8.4-10.2)
[2017-04-28 09:02] LABS: Basophils # (A) 0.1 k/uL (0-0.2); Basophils % (A) 0 %; CH 28.5; Eosinophils # (A) 0.3 k/uL (0-0.7); Eosinophils % (A) 2 %; HCT 34.7 % (39.0-53.0); HDW 2.99; HGB 10.7 gm/dL (13.0-17.5); Hypochromasia Slight; Luc # (Auto) 0.29; Luc % (Auto) 2; Lymphocytes # (A) 0.8 k/uL (1.0-4.8); Lymphocytes % (A) 6 %; MCH 28.6 pg (25.0-35.0); MCV 92.3 fL (80.0-100.0); Monocytes % (A) 8 %; Neutrophils # (A) 10.8 k/uL (1.3-7.7); Neutrophils % (A) 82 %; RBC 3.76 m/uL (4.30-5.90); RDW 15.1 % (11.5-15.5); WBC 13.2 k/uL (3.8-10.6); WBC (Perox) 14.07
[2017-04-28] MEDS: traMADol 50 MG TAB PO PRN ×2 (10:33→22:21)
[2017-04-28 12:29] LABS: Glucose,Whole Blood 65 mg/dL (75-99)
[2017-04-28 12:56] LABS: Glucose,Whole Blood 78 mg/dL (75-99)
[2017-04-28 12:56] LABS: Glucose,Whole Blood 63 mg/dL (75-99)
[2017-04-28] MEDS: VANCOMYCIN 2,250 MG in SODIUM CHLORIDE 0.9% 500 ML IVPB SCH (13:08)
--- NOTE | 2017-04-28 14:41 | P.PN ---
Subjective Principal diagnosis: This is cellulitis left leg 71-year-old male who gives a history of a cat scratch to his left lower leg at the lateral ankle 2 months ago he has been been experiencing ongoing problems with cellulitis patient has been treated by my partner Dr. Mojica in outpatient setting patient has had multiple oral antibiotics, was not able to remember what it was. He has had some improvement. Patient has been on Zosyn and vancomycin IV piggyback and has been steadily improving blood sugars been running in the low 100s hemoglobin A1c was 6. He is currently afebrile Objective - Vital Signs Vital signs: Vital Signs Temp 97.8 F 04/28/17 09:54 Pulse 84 04/28/17 09:54 Resp 22 04/28/17 09:54 BP 115/40 04/28/17 09:54 Pulse Ox 95 04/28/17 09:54 Intake & Output 04/27/17 04/28/17 04/28/17 18:59 06:59 18:59 Intake Total 417 480 Output Total 1050 300 200 Balance -633 -300 280 Intake: Oral 417 480 Output: Urine 1050 300 200 Other: Voiding Method Toilet Urinal Urinal # Voids 1 1 - Exam General: [Patient awake, alert and oriented times 3. Patient in no acute distress.] Morbidly obese HEENT: [PERRL. EOMI. No pharyngeal erythema or exudate.] Neck: [No adenopathy.] Cardiac: [Heart regular in rate and rhythm. No S3. No S4. No clicks, rubs. No murmur.] Lungs: [Clear to auscultation bilaterally.] Abdomen: [No mass. No organomegaly. Bowel sounds presnt and normoactive in all 4 quadrants.] Extremes: 3+ pedal edema to the left lower extreme 1+ to the right. There is erythema on the left flank extending from the foot up into the groin area which has been warm to touch and edematous. To the pretibial area area there are wounds currently without drainage. The right lower extreme there is erythema which is warm to the mid pretibial area, however the erythema is reducing significantly : [] Musculoskeletal: [No joint erythema, edema or tenderness.] Skin: [No rash.] Neurologic: [No lateralizing deficits. CN II - XII grossly intact.] Lymphatic: [No adenopathy.] - Labs CBC & Chem 7: 04/28/17 08:26 04/28/17 08:26 Labs: Abnormal Lab Results - Last 24 Hours (Table) 04/27/17 04/28/17 04/28/17 Range/Units 16:47 07:21 08:26 WBC (3.8-10.6) k/uL RBC (4.30-5.90) m/uL Hgb (13.0-17.5) gm/dL Hct (39.0-53.0) % Neutrophils # (1.3-7.7) k/uL Lymphocytes # (1.0-4.8) k/uL Sodium 133 L (137-145) mmol/L Chloride 96 L (98-107) mmol/L BUN 43 H (9-20) mg/dL Creatinine 1.90 H (0.66-1.25) mg/dL POC Glucose (mg/dL) 122 H 69 L (75-99) mg/dL Calcium 8.3 L (8.4-10.2) mg/dL 04/28/17 04/28/17 04/28/17 Range/Units 08:26 12:10 12:31 WBC 13.2 H (3.8-10.6) k/uL RBC 3.76 L (4.30-5.90) m/uL Hgb 10.7 L (13.0-17.5) gm/dL Hct 34.7 L (39.0-53.0) % Neutrophils # 10.8 H (1.3-7.7) k/uL Lymphocytes # 0.8 L (1.0-4.8) k/uL Sodium (137-145) mmol/L Chloride (98-107) mmol/L BUN (9-20) mg/dL Creatinine (0.66-1.25) mg/dL POC Glucose (mg/dL) 65 L 63 L (75-99) mg/dL Calcium (8.4-10.2) mg/dL Microbiology - Last 24 Hours (Table) 04/23/17 14:44 Blood Culture - Preliminary Blood No Growth after 96 hours Assessment and Plan (1) Cellulitis Narrative/Plan: 71-year-old male with significant difficulties with significant edema related to volume overload from vascular disease, he is feeling much better at this time currently afebrile overall improved edema improved erythema is significantly improving, BUN/creatinine are improving, cultures currently negative anticipate transitioning patient to oral antibiotics will continue with Silvadene wraps for comfort Status: Acute (2) Diabetes Narrative/Plan: Currently well-controlled hemoglobin A1c was 6.0 Status: Acute
[2017-04-28 17:43] LABS: Glucose,Whole Blood 62 mg/dL (75-99)
[2017-04-28 17:43] LABS: Glucose,Whole Blood 48 mg/dL (75-99)
[2017-04-28 18:05] LABS: Glucose,Whole Blood 54 mg/dL (75-99)
[2017-04-28 18:20] LABS: Glucose,Whole Blood 49 mg/dL (75-99)
[2017-04-28] MEDS ORDERED: DEXTROSE 10 % IN WATER 250 ML IV STA (18:20)
[2017-04-28 18:54] LABS: Glucose,Whole Blood 189 mg/dL (75-99)
[2017-04-28 20:09] LABS: Glucose,Whole Blood 94 mg/dL (75-99)
[2017-04-29] MEDS: LEVOTHYROXINE 75 MCG TAB PO SCH (06:29)
[2017-04-29] MEDS: LEVOTHYROXINE 100 MCG TAB PO SCH (06:29)
[2017-04-29] MEDS: PIPERACILLIN-TAZOBACTAM 3.375 GM in DEXTROSE/WATER 1 50ML.BAG IVPB SCH ×2 (07:23→16:08)
[2017-04-29] MEDS: INSULIN LISPRO (humaLOG) 300 UNIT/3 ML VIAL SQ SCH ×4 (07:25→22:14)
[2017-04-29 07:28] LABS: Glucose,Whole Blood 117 mg/dL (75-99)
[2017-04-29 08:16] LABS: Calcium 7.9 mg/dL (8.4-10.2)
[2017-04-29] MEDS: ATORVASTATIN 80 MG TAB PO SCH (08:28)
[2017-04-29] MEDS: RIVAROXABAN 10 MG TAB PO SCH (08:29)
[2017-04-29] MEDS: LOSARTAN 50 MG TAB PO SCH ×2 (08:29→22:13)
[2017-04-29] MEDS: FUROSEMIDE 20 MG TAB PO SCH (08:29)
[2017-04-29] MEDS: METOPROLOL TARTRATE 50 MG TAB PO SCH ×2 (08:29→22:13)
[2017-04-29] MEDS: SILVER sulfADIAZINE Cream 400 GM 1 APPLIC APPLIC TOPICAL SCH ×2 (08:29→22:13)
[2017-04-29 11:55] LABS: Glucose,Whole Blood 125 mg/dL (75-99)
[2017-04-29] MEDS: VANCOMYCIN 2,250 MG in SODIUM CHLORIDE 0.9% 500 ML IVPB SCH (12:14)
--- NOTE | 2017-04-29 12:34 | P.PN ---
Subjective Principal diagnosis: This is cellulitis left leg 71-year-old male who gives a history of a cat scratch to his left lower leg at the lateral ankle 2 months ago he has been been experiencing ongoing problems with cellulitis patient has been treated by my partner Dr. Mojica in outpatient setting patient has had multiple oral antibiotics, was not able to remember what it was. He has had some improvement. Patient has been on Zosyn and vancomycin IV piggyback and has been steadily improving blood sugars been running in the low 100s hemoglobin A1c was 6. He is currently afebrile Objective - Vital Signs Vital signs: Vital Signs Temp 98.6 F 04/29/17 07:00 Pulse 97 04/29/17 07:00 Resp 20 04/29/17 07:00 BP 124/64 04/29/17 07:00 Pulse Ox 97 04/29/17 07:00 Intake & Output 04/28/17 04/29/17 04/29/17 18:59 06:59 18:59 Intake Total 480 Output Total 200 375 Balance 280 -375 Weight 186 kg Intake: Oral 480 Output: Urine 200 375 Other: Voiding Method Urinal Urinal # Voids 1 1 100 # Bowel Movements 0 - Exam General: [Patient awake, alert and oriented times 3. Patient in no acute distress.] Morbidly obese HEENT: [PERRL. EOMI. No pharyngeal erythema or exudate.] Neck: [No adenopathy.] Cardiac: [Heart regular in rate and rhythm. No S3. No S4. No clicks, rubs. No murmur.] Lungs: [Clear to auscultation bilaterally.] Abdomen: [No mass. No organomegaly. Bowel sounds presnt and normoactive in all 4 quadrants.] Extremes: 3+ pedal edema to the left lower extreme 1+ to the right. There is erythema on the left flank extending from the foot up into the groin area which has been warm to touch and edematous. To the pretibial area area there are wounds currently without drainage. The right lower extreme there is erythema which is warm to the mid pretibial area, however the erythema is reducing significantly : [] Musculoskeletal: [No joint erythema, edema or tenderness.] Skin: [No rash.] Neurologic: [No lateralizing deficits. CN II - XII grossly intact.] Lymphatic: [No adenopathy.] - Labs CBC & Chem 7: 04/28/17 08:26 04/29/17 07:25 Labs: Abnormal Lab Results - Last 24 Hours (Table) 04/28/17 04/28/17 04/28/17 Range/Units 12:31 17:10 17:26 Sodium (137-145) mmol/L Chloride (98-107) mmol/L BUN (9-20) mg/dL Creatinine (0.66-1.25) mg/dL Glucose (74-99) mg/dL POC Glucose (mg/dL) 63 L 48 L 62 L (75-99) mg/dL Calcium (8.4-10.2) mg/dL 04/28/17 04/28/17 04/28/17 Range/Units 17:44 18:09 18:52 Sodium (137-145) mmol/L Chloride (98-107) mmol/L BUN (9-20) mg/dL Creatinine (0.66-1.25) mg/dL Glucose (74-99) mg/dL POC Glucose (mg/dL) 54 L 49 L 189 H (75-99) mg/dL Calcium (8.4-10.2) mg/dL 04/29/17 04/29/17 04/29/17 Range/Units 07:25 07:25 11:34 Sodium 132 L (137-145) mmol/L Chloride 96 L (98-107) mmol/L BUN 47 H (9-20) mg/dL Creatinine 2.00 H (0.66-1.25) mg/dL Glucose 114 H (74-99) mg/dL POC Glucose (mg/dL) 117 H 125 H (75-99) mg/dL Calcium 7.9 L (8.4-10.2) mg/dL Microbiology - Last 24 Hours (Table) 04/23/17 14:44 Blood Culture - Preliminary Blood No Growth after 120 hours Assessment and Plan (1) Cellulitis Narrative/Plan: 71-year-old male with significant difficulties with significant edema related to volume overload from vascular disease, he is feeling much better at this time currently afebrile overall improved edema improved erythema is significantly improving, BUN/creatinine are improving, cultures currently negative anticipate transitioning patient to oral antibiotics will continue with Silvadene wraps for comfort Status: Acute (2) Diabetes Narrative/Plan: Currently well-controlled hemoglobin A1c was 6.0 Status: Acute
[2017-04-29 17:10] LABS: Glucose,Whole Blood 131 mg/dL (75-99)
[2017-04-29] MEDS: ACETAMINOPHEN TAB 325 MG TAB PO PRN (20:27)
[2017-04-29 21:28] LABS: Glucose,Whole Blood 144 mg/dL (75-99)
[2017-04-29] MEDS: traMADol 50 MG TAB PO PRN (22:16)
[2017-04-30] MEDS: PIPERACILLIN-TAZOBACTAM 3.375 GM in DEXTROSE/WATER 1 50ML.BAG IVPB SCH ×4 (00:20→23:27)
[2017-04-30] MEDS: traMADol 50 MG TAB PO PRN ×2 (05:51→21:01)
[2017-04-30] MEDS: LEVOTHYROXINE 100 MCG TAB PO SCH (06:27)
[2017-04-30] MEDS: LEVOTHYROXINE 75 MCG TAB PO SCH (06:27)
[2017-04-30 07:26] LABS: Glucose,Whole Blood 116 mg/dL (75-99)
[2017-04-30] MEDS: INSULIN LISPRO (humaLOG) 300 UNIT/3 ML VIAL SQ SCH ×4 (07:29→21:56)
[2017-04-30] MEDS: ATORVASTATIN 80 MG TAB PO SCH (07:45)
[2017-04-30] MEDS: RIVAROXABAN 10 MG TAB PO SCH (07:45)
[2017-04-30] MEDS: FUROSEMIDE 20 MG TAB PO SCH (07:45)
[2017-04-30] MEDS: LOSARTAN 50 MG TAB PO SCH ×2 (07:45→20:53)
[2017-04-30] MEDS: METOPROLOL TARTRATE 50 MG TAB PO SCH ×2 (07:45→20:53)
[2017-04-30] MEDS: SILVER sulfADIAZINE Cream 400 GM 1 APPLIC APPLIC TOPICAL SCH ×2 (07:48→20:54)
[2017-04-30] MEDS ORDERED: VANCOMYCIN TROUGH DUE 1 EACH MISC MISCELLANE ONE (11:00)
[2017-04-30 11:56] LABS: Glucose,Whole Blood 139 mg/dL (75-99)
[2017-04-30] MEDS: VANCOMYCIN 2,250 MG in SODIUM CHLORIDE 0.9% 500 ML IVPB SCH (12:21)
[2017-04-30] MEDS ORDERED: IV VANCOMYCIN PER PHARMACY 1 EACH MISC MISCELLANE PRN (15:04)
--- NOTE | 2017-04-30 15:04 | P.PN ---
Subjective Principal diagnosis: This is cellulitis left leg, with significant fluid retention 71-year-old male who gives a history of a cat scratch to his left lower leg at the lateral ankle 2 months ago he has been been experiencing ongoing problems with cellulitis patient has been treated by my partner Dr. Mojica in outpatient setting patient has had multiple oral antibiotics, was not able to remember what it was. He has had some improvement. Patient has been on Zosyn and vancomycin IV piggyback and has been steadily improving blood sugars been running in the low 100s hemoglobin A1c was 6. He is currently afebrile and has gone from 186 kg on 04/29/2017 to 189 kg on 04/30/2017, patient needs to diuresis and has not done so actively yet Objective - Vital Signs Vital signs: Vital Signs Temp 98.1 F 04/30/17 14:37 Pulse 99 04/30/17 14:37 Resp 18 04/30/17 14:37 BP 117/63 04/30/17 14:37 Pulse Ox 91 L 04/30/17 14:37 Intake & Output 04/29/17 04/30/17 04/30/17 18:59 06:59 18:59 Intake Total 720 160 Output Total 325 225 Balance 395 -65 Weight 189 kg 189 kg Intake: IV 160 0.9 normal saline @20 mls 160 / hr Oral 720 Output: Urine 325 225 Other: Voiding Method Urinal # Voids 1 1 3 # Bowel Movements 0 - Exam General: [Patient awake, alert and oriented times 3. Patient in no acute distress.] Morbidly obese HEENT: [PERRL. EOMI. No pharyngeal erythema or exudate.] Neck: [No adenopathy.] Cardiac: [Heart regular in rate and rhythm. No S3. No S4. No clicks, rubs. No murmur.] Lungs: [Clear to auscultation bilaterally.] Abdomen: [No mass. No organomegaly. Bowel sounds presnt and normoactive in all 4 quadrants.] Extremes: 3+ pedal edema to the left lower extreme 1+ to the right. There is erythema on the left flank extending from the foot up into the groin area which has been warm to touch and edematous. To the pretibial area area there are wounds currently without drainage. The right lower extreme there is erythema which is warm to the mid pretibial area, however the erythema is reducing significantly. Edema in bilateral lower extremes shows significant increase weight has gone from 186kg on 04/29 to 189 KG 04/30/2017 : [] Musculoskeletal: [No joint erythema, edema or tenderness.] Skin: [No rash.] Neurologic: [No lateralizing deficits. CN II - XII grossly intact.] Lymphatic: [No adenopathy.] - Labs CBC & Chem 7: 04/28/17 08:26 04/30/17 11:25 Labs: Abnormal Lab Results - Last 24 Hours (Table) 04/29/17 04/29/17 04/30/17 Range/Units 16:52 21:24 07:25 Creatinine (0.66-1.25) mg/dL POC Glucose (mg/dL) 131 H 144 H 116 H (75-99) mg/dL 04/30/17 04/30/17 Range/Units 11:25 11:53 Creatinine 2.15 H (0.66-1.25) mg/dL POC Glucose (mg/dL) 139 H (75-99) mg/dL Microbiology - Last 24 Hours (Table) 04/23/17 14:44 Blood Culture - Final Blood No Growth after 144 hours Assessment and Plan (1) Cellulitis Narrative/Plan: 71-year-old male with significant difficulties with significant edema related to volume overload from vascular disease, he is feeling much better at this time currently afebrile overall improved edema has not improved significantly, erythema is significantly improving, BUN/creatinine are improving, cultures currently negative anticipate transitioning patient to oral antibiotics will continue with Silvadene wraps for comfort Status: Acute (2) Diabetes Narrative/Plan: Currently well-controlled hemoglobin A1c was 6.0 Status: Acute Time with Patient: Less than 30
[2017-04-30 17:18] LABS: Glucose,Whole Blood 130 mg/dL (75-99)
--- NOTE | 2017-04-30 21:05 | P.PN ---
Subjective Principal diagnosis: cellulitis left leg This is a 71-year-old male who gives history that he had a cat scratch to his left lower leg at the lateral ankle area 2 months ago and he has had ongoing problems with cellulitis. Patient states he has been treated by Dr. Mojica in the outpatient setting and has had oral antibiotics. He does not recall the name of the antibiotic. He states he did have some improvement but yesterday he had sudden onset of redness and swelling and went up into his thigh area and also developed fevers. Patient presented to [facility] emergency center with the above. His white count was 11.6, temperature 101.5. BUN is currently 34 with a creatinine of 1.46 with GFR of 48. Urinalysis was nitrate and leukoesterase negative and urine culture is in process. Blood culture is status received. He had a chest x-ray that showed cardiomegaly with mild heart failure with increased heart size. He did have a recent CTA of the abdominal aorta on April 11 as an outpatient ordered by Dr. Srinivasan which showed ascites adjacent to the liver and spleen. Pancreas was atrophic. Vascular calcifications within the aorta. Inferior vena cava is unremarkable. Most of the bowel unremarkable. 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 The anterior and posterior tibial arteries appear to be present and patent bilaterally although delineation of the origins can not be evaluated with hardening artifact at the level of the bilateral knees. Patient has been started on Zosyn and vancomycin and states that he is improved from yesterday. He does not recall when his tetanus was last updated. He states that his shortness of breath is at his baseline. He is currently on IV Lasix with good urine output. He states his blood sugar has been running in the low 100s at home. hemoglobin A1c was 6. Now showing some improvement temp 98.1 Objective - Vital Signs Vital signs: Vital Signs Temp 98.1 F 04/30/17 14:37 Pulse 99 04/30/17 14:37 Resp 18 04/30/17 14:37 BP 117/63 04/30/17 14:37 Pulse Ox 91 L 04/30/17 14:37 Intake & Output 04/30/17 04/30/17 05/01/17 06:59 18:59 06:59 Intake Total 160 Output Total 225 Balance -65 Weight 189 kg 189 kg Intake: IV 160 0.9 normal saline @20 mls 160 / hr Output: Urine 225 Other: # Voids 1 1 - Exam Gen: This is a morbidly obese 71-year-old male. He is sitting in bed and appears to be somewhat comfortable. HEENT: Head is atraumatic, normocephalic. Pupils equal, round. Sclerae is anicteric. NECK: Supple. No JVD. No lymphadenopathy. No thyromegaly. LUNGS: Diminished bilaterally with expiratory wheeze. No intercostal retractions. HEART: Irregular rate and rhythm. No murmur. ABDOMEN: Soft. Bowel sounds are present. No masses. No tenderness. EXTREMITIES: 3+ pedal edema to the left lower extremity and 1+ to the right lower extremity. There is erythema on the left leg extending from the foot up into the groin area with warmth to the touch and edema. To the pretibial area, there are wounds currently without drainage. The right lower extremity, there is erythema and warmth to the mid pretibial area. NEUROLOGICAL: Patient is awake, alert and oriented - Labs CBC & Chem 7: 04/28/17 08:26 04/30/17 11:25 Labs: Abnormal Lab Results - Last 24 Hours (Table) 04/29/17 04/30/17 04/30/17 Range/Units 21:24 07:25 11:25 Creatinine 2.15 H (0.66-1.25) mg/dL POC Glucose (mg/dL) 144 H 116 H (75-99) mg/dL 04/30/17 04/30/17 Range/Units 11:53 17:09 Creatinine (0.66-1.25) mg/dL POC Glucose (mg/dL) 139 H 130 H (75-99) mg/dL Laboratory Results WBC 13.2 k/uL (3.8-10.6) H 04/28/17 08:26 RBC 3.76 m/uL (4.30-5.90) L 04/28/17 08:26 Hgb 10.7 gm/dL (13.0-17.5) L 04/28/17 08:26 Hct 34.7 % (39.0-53.0) L 04/28/17 08:26 MCV 92.3 fL (80.0-100.0) 04/28/17 08:26 MCH 28.6 pg (25.0-35.0) 04/28/17 08:26 MCHC 31.0 g/dL (31.0-37.0) 04/28/17 08:26 RDW 15.1 % (11.5-15.5) 04/28/17 08:26 Plt Count 159 k/uL (150-450) 04/28/17 08:26 Neutrophils % 82 % 04/28/17 08:26 Lymphocytes % 6 % 04/28/17 08:26 Monocytes % 8 % 04/28/17 08:26 Eosinophils % 2 % 04/28/17 08:26 Basophils % 0 % 04/28/17 08:26 Neutrophils # 10.8 k/uL (1.3-7.7) H 04/28/17 08:26 Lymphocytes # 0.8 k/uL (1.0-4.8) L 04/28/17 08:26 Monocytes # 1.0 k/uL (0-1.0) 04/28/17 08:26 Eosinophils # 0.3 k/uL (0-0.7) 04/28/17 08:26 Basophils # 0.1 k/uL (0-0.2) 04/28/17 08:26 Hypochromasia Slight 04/28/17 08:26 PT 24.8 sec (9.0-12.0) H 04/23/17 14:44 INR 2.6 (<1.1) 04/23/17 14:44 APTT 67.7 sec (22.0-30.0) H 04/23/17 14:44 Sodium 132 mmol/L (137-145) L 04/29/17 07:25 Potassium 5.0 mmol/L (3.5-5.1) 04/29/17 07:25 Chloride 96 mmol/L (98-107) L 04/29/17 07:25 Carbon Dioxide 29 mmol/L (22-30) 04/29/17 07:25 Anion Gap 7 mmol/L 04/29/17 07:25 BUN 47 mg/dL (9-20) H 04/29/17 07:25 Creatinine 2.15 mg/dL (0.66-1.25) H 04/30/17 11:25 Est GFR (MDRD) Af Amer 37 (>60 ml/min/1.73 sqM) 04/30/17 11:25 Est GFR (MDRD) Non-Af 31 (>60 ml/min/1.73 sqM) 04/30/17 11:25 Glucose 114 mg/dL (74-99) H 04/29/17 07:25 POC Glucose (mg/dL) 130 mg/dL (75-99) H 04/30/17 17:09 POC Glu Manager Pulmonary Urmila Nolen 04/30/17 17:[address] Glu mg/dL 126 mg/dL 04/24/17 05:35 Hemoglobin A1c 6.0 % (4.2-6.1) 04/24/17 05:35 Plasma Lactic Acid Juan 1.0 mmol/L (0.7-2.0) 04/24/17 05:35 Calcium 7.9 mg/dL (8.4-10.2) L 04/29/17 07:25 Magnesium 2.0 mg/dL (1.6-2.3) 04/28/17 08:26 Total Bilirubin 2.3 mg/dL (0.2-1.3) H 04/23/17 14:44 AST 30 U/L (17-59) 04/23/17 14:44 ALT 26 U/L (21-72) 04/23/17 14:44 Alkaline Phosphatase 63 U/L (38-126) 04/23/17 14:44 NT-Pro-B Natriuret Pep 6640 pg/mL 04/23/17 14:44 Total Protein 6.8 g/dL (6.3-8.2) 04/23/17 14:44 Albumin 3.7 g/dL (3.5-5.0) 04/23/17 14:44 Urine Color Yellow 04/23/17 17:00 Urine Appearance Clear (Clear) 04/23/17 17:00 Urine pH 8.0 (5.0-8.0) 04/23/17 17:00 Ur Specific [place] 1.017 (1.001-1.035) 04/23/17 17:00 Urine Protein 1+ (Negative) H 04/23/17 17:00 Urine Glucose (UA) Negative (Negative) 04/23/17 17:00 Urine Ketones Negative (Negative) 04/23/17 17:00 Urine Blood Negative (Negative) 04/23/17 17:00 Urine Nitrite Negative (Negative) 04/23/17 17:00 Urine Bilirubin Negative (Negative) 04/23/17 17:00 Urine Urobilinogen 4.0 mg/dL (<2.0) 04/23/17 17:00 Ur Leukocyte Esterase Negative (Negative) 04/23/17 17:00 Urine WBC 1 /hpf (0-5) 04/23/17 17:00 Ur Squamous Epith Cells <1 /hpf (0-4) 04/23/17 17:00 Granular Casts 1 /lpf (0) 04/23/17 17:00 Vancomycin Trough 28.2 ug/mL 04/30/17 11:25 Microbiology 04/23/17 14:44 Blood Blood Culture - Final No Growth after 144 hours 04/23/17 17:00 Urine,Voided Urine Culture - Final Assessment and Plan (1) Cellulitis Narrative/Plan: 71-year-old male who has significant difficulties with significant edema related to volume overload and peripheral vascular disease. He is not feeling better except she did have a temperature 100.8. Overall improved. Edema is improved. Erythema is improving. Creatinine increased possibly due to the diuresis. We'll monitor closely. Cultures are negative at this point in time. If fever resolves will likely be able to transition to oral antibiotics soon. Continue with the Silvadene wraps which is allowed improvement. As further improvement occurs we'll plan on transitioning to cefuroxime to finish his course of therapy. Status: Acute
[2017-04-30 21:31] LABS: Glucose,Whole Blood 160 mg/dL (75-99)
[2017-05-01 01:52] LABS: Glucose,Whole Blood 104 mg/dL (75-99)
[2017-05-01] MEDS: LEVOTHYROXINE 100 MCG TAB PO SCH (06:34)
[2017-05-01] MEDS: LEVOTHYROXINE 75 MCG TAB PO SCH (06:34)
[2017-05-01 07:29] LABS: Glucose,Whole Blood 94 mg/dL (75-99)
[2017-05-01] MEDS: INSULIN LISPRO (humaLOG) 300 UNIT/3 ML VIAL SQ SCH ×4 (07:44→21:27)
[2017-05-01] MEDS: METOPROLOL TARTRATE 50 MG TAB PO SCH ×2 (07:45→21:27)
[2017-05-01] MEDS: RIVAROXABAN 10 MG TAB PO SCH (07:45)
[2017-05-01] MEDS: FUROSEMIDE 40 MG TAB PO SCH (07:46)
[2017-05-01] MEDS: ATORVASTATIN 80 MG TAB PO SCH (07:46)
[2017-05-01] MEDS: LOSARTAN 50 MG TAB PO SCH ×2 (07:46→21:27)
[2017-05-01] MEDS: PIPERACILLIN-TAZOBACTAM 3.375 GM in DEXTROSE/WATER 1 50ML.BAG IVPB SCH ×3 (07:46→22:59)
[2017-05-01 08:52] LABS: Calcium 8.3 mg/dL (8.4-10.2); Potassium 5.6 mmol/L (3.5-5.1)
[2017-05-01 12:35] LABS: Glucose,Whole Blood 91 mg/dL (75-99)
[2017-05-01] MEDS: SILVER sulfADIAZINE Cream 400 GM 1 APPLIC APPLIC TOPICAL SCH ×2 (16:22→21:27)
[2017-05-01 17:13] LABS: Glucose,Whole Blood 110 mg/dL (75-99)
[2017-05-01] MEDS: traMADol 50 MG TAB PO PRN (18:34)
--- NOTE | 2017-05-01 18:55 | P.PN ---
Subjective Principal diagnosis: This is cellulitis left leg, with significant fluid retention improving 71-year-old male who gives a history of a cat scratch to his left lower leg at the lateral ankle 2 months ago he has been been experiencing ongoing problems with cellulitis patient has been treated by my partner Dr. Mojica in outpatient setting patient has had multiple oral antibiotics, was not able to remember what it was. He has had some improvement. Patient has been on Zosyn and vancomycin IV piggyback and has been steadily improving blood sugars been running in the low 100s hemoglobin A1c was 6. He is currently afebrile and has gone from 186 kg on 04/29/2017 to 189 kg on 04/30/2017, patient needs diurese and has not done so actively yet Objective - Vital Signs Vital signs: Vital Signs Temp 98.0 F 05/01/17 14:40 Pulse 90 05/01/17 14:40 Resp 16 05/01/17 14:40 BP 135/69 05/01/17 14:40 Pulse Ox 98 05/01/17 14:40 Intake & Output 04/30/17 05/01/17 05/01/17 18:59 06:59 18:59 Intake Total 400 Output Total 400 700 Balance -400 -300 Weight 189 kg Intake: Oral 400 Output: Urine 400 700 Other: Voiding Method Urinal # Voids 1 - Exam General: [Patient awake, alert and oriented times 3. Patient in no acute distress.] Morbidly obese HEENT: [PERRL. EOMI. No pharyngeal erythema or exudate.] Neck: [No adenopathy.] Cardiac: [Heart regular in rate and rhythm. No S3. No S4. No clicks, rubs. No murmur.] Lungs: [Clear to auscultation bilaterally.] Abdomen: [No mass. No organomegaly. Bowel sounds presnt and normoactive in all 4 quadrants.] Extremes: 3+ pedal edema to the left lower extreme 1+ to the right. There is erythema on the left flank extending from the foot up into the groin area which has been warm to touch and edematous. To the pretibial area area there are wounds currently without drainage. The right lower extreme there is erythema which is warm to the mid pretibial area, however the erythema is reducing significantly. Edema in bilateral lower extremes shows significant increase weight has gone from 186kg on 04/29 to 189 KG 04/30/2017 : [] Musculoskeletal: [No joint erythema, edema or tenderness.] Skin: [No rash.] Neurologic: [No lateralizing deficits. CN II - XII grossly intact.] Lymphatic: [No adenopathy.] - Labs CBC & Chem 7: 04/28/17 08:26 05/01/17 07:54 Labs: Abnormal Lab Results - Last 24 Hours (Table) 04/30/17 05/01/17 05/01/17 Range/Units 21:29 01:52 07:54 Sodium 133 L (137-145) mmol/L Potassium 5.6 H (3.5-5.1) mmol/L Chloride 96 L (98-107) mmol/L BUN 49 H (9-20) mg/dL Creatinine 1.70 H (0.66-1.25) mg/dL POC Glucose (mg/dL) 160 H 104 H (75-99) mg/dL Calcium 8.3 L (8.4-10.2) mg/dL 05/01/17 Range/Units 17:09 Sodium (137-145) mmol/L Potassium (3.5-5.1) mmol/L Chloride (98-107) mmol/L BUN (9-20) mg/dL Creatinine (0.66-1.25) mg/dL POC Glucose (mg/dL) 110 H (75-99) mg/dL Calcium (8.4-10.2) mg/dL Assessment and Plan (1) Cellulitis Narrative/Plan: 71-year-old male with significant difficulties with significant edema related to volume overload from vascular disease, he is feeling much better at this time currently afebrile overall improved edema has not improved significantly, erythema is significantly improving, BUN/creatinine are improving, cultures currently negative anticipate transitioning patient to oral antibiotics will continue with Silvadene wraps for comfort Status: Acute (2) Diabetes Narrative/Plan: Currently well-controlled hemoglobin A1c was 6.0 Status: Acute
[2017-05-01 20:21] LABS: Calcium 8.7 mg/dL (8.4-10.2); Potassium 5.9 mmol/L (3.5-5.1)
[2017-05-01 20:30] LABS: Basophils # (A) 0.1 k/uL (0-0.2); Basophils % (A) 1 %; CHCM 30.4; Eosinophils # (A) 0.3 k/uL (0-0.7); Eosinophils % (A) 2 %; HCT 34.9 % (39.0-53.0); HDW 2.84; Hypochromasia Moderate; Luc % (Auto) 2; Lymphocytes # (A) 0.7 k/uL (1.0-4.8); Lymphocytes % (A) 6 %; MCH 29.2 pg (25.0-35.0); MCHC 31.5 g/dL (31.0-37.0); MCV 92.7 fL (80.0-100.0); Mean Platelet Volume 7.7; Monocytes # (A) 0.9 k/uL (0-1.0); Monocytes % (A) 7 %; Neutrophils # (A) 10.7 k/uL (1.3-7.7); Neutrophils % (A) 82 %; RBC 3.77 m/uL (4.30-5.90); RDW 14.8 % (11.5-15.5); WBC 13.1 k/uL (3.8-10.6); WBC (Perox) 13.72
[2017-05-01 21:42] LABS: Glucose,Whole Blood 129 mg/dL (75-99)
[2017-05-02] MEDS: LEVOTHYROXINE 100 MCG TAB PO SCH (06:29)
[2017-05-02] MEDS: LEVOTHYROXINE 75 MCG TAB PO SCH (06:29)
[2017-05-02 07:34] LABS: Glucose,Whole Blood 85 mg/dL (75-99)
[2017-05-02] MEDS: INSULIN LISPRO (humaLOG) 300 UNIT/3 ML VIAL SQ SCH ×4 (08:37→22:43)
[2017-05-02] MEDS: LOSARTAN 50 MG TAB PO SCH ×2 (08:45→22:43)
[2017-05-02] MEDS: FUROSEMIDE 40 MG TAB PO SCH ×2 (08:45→10:59)
[2017-05-02] MEDS: ATORVASTATIN 80 MG TAB PO SCH (08:45)
[2017-05-02] MEDS: METOPROLOL TARTRATE 50 MG TAB PO SCH ×2 (08:46→22:43)
[2017-05-02] MEDS: RIVAROXABAN 10 MG TAB PO SCH (08:46)
[2017-05-02] MEDS: PIPERACILLIN-TAZOBACTAM 3.375 GM in DEXTROSE/WATER 1 50ML.BAG IVPB SCH ×3 (08:46→23:11)
[2017-05-02] MEDS ORDERED: VANCOMYCIN 2,250 MG in SODIUM CHLORIDE 0.9% 500 ML IVPB ONE (12:00)
[2017-05-02 12:06] LABS: Glucose,Whole Blood 141 mg/dL (75-99)
[2017-05-02] MEDS: traMADol 50 MG TAB PO PRN ×2 (12:11→19:01)
[2017-05-02] MEDS: SILVER sulfADIAZINE Cream 400 GM 1 APPLIC APPLIC TOPICAL SCH ×2 (12:57→22:44)
[2017-05-02 16:32] LABS: Calcium 8.7 mg/dL (8.4-10.2); Potassium 5.5 mmol/L (3.5-5.1)
[2017-05-02 17:15] LABS: Glucose,Whole Blood 89 mg/dL (75-99)
--- NOTE | 2017-05-02 18:32 | P.PN ---
Subjective Principal diagnosis: This is cellulitis left leg, with significant fluid retention improving. However patient is diuresing adequately spacious that this might be secondary to the saline that his IV antibiotics are suspended in Will discuss the possibility with Dr. Stevenson of switching him to orals and seeing a patient will diurese and a more rapid rate 71-year-old male who gives a history of a cat scratch to his left lower leg at the lateral ankle 2 months ago he has been been experiencing ongoing problems with cellulitis patient has been treated by my partner Dr. Mojica in outpatient setting patient has had multiple oral antibiotics, was not able to remember what it was. He has had some improvement. Patient has been on Zosyn and vancomycin IV piggyback and has been steadily improving blood sugars been running in the low 100s hemoglobin A1c was 6. He is currently afebrile and has gone from 186 kg on 04/29/2017 to 189 kg on 04/30/2017, patient needs diurese and has not done so actively yet Objective - Vital Signs Vital signs: Vital Signs Temp 98.0 F 05/02/17 15:00 Pulse 80 05/02/17 15:00 Resp 22 05/02/17 15:00 BP 127/70 05/02/17 15:00 Pulse Ox 100 05/02/17 15:00 Intake & Output 05/01/17 05/02/17 05/02/17 18:59 06:59 18:59 Intake Total 400 550 960 Output Total 700 900 802 Balance -300 -350 158 Weight 190 kg Intake: Oral 400 550 960 Output: Urine 700 900 800 Stool 2 Other: Voiding Method Urinal Urinal # Voids 2 # Bowel Movements 0 - Exam General: [Patient awake, alert and oriented times 3. Patient in no acute distress.] Morbidly obese HEENT: [PERRL. EOMI. No pharyngeal erythema or exudate.] Neck: [No adenopathy.] Cardiac: [Heart regular in rate and rhythm. No S3. No S4. No clicks, rubs. No murmur.] Lungs: [Clear to auscultation bilaterally.] Abdomen: [No mass. No organomegaly. Bowel sounds presnt and normoactive in all 4 quadrants.] Extremes: 3+ pedal edema to the left lower extreme 1+ to the right. There is erythema on the left flank extending from the foot up into the groin area which has been warm to touch and edematous. To the pretibial area area there are wounds currently without drainage. The right lower extreme there is erythema which is warm to the mid pretibial area, however the erythema is reducing significantly. Edema in bilateral lower extremes shows significant increase weight has gone from 186kg on 04/29 to 189 KG 04/30/2017 : [] Musculoskeletal: [No joint erythema, edema or tenderness.] Skin: [No rash.] Neurologic: [No lateralizing deficits. CN II - XII grossly intact.] Lymphatic: [No adenopathy.] - Labs CBC & Chem 7: 05/01/17 19:42 05/02/17 07:55 Labs: Abnormal Lab Results - Last 24 Hours (Table) 05/01/17 05/01/17 05/01/17 Range/Units 19:42 19:42 21:22 WBC 13.1 H (3.8-10.6) k/uL RBC 3.77 L (4.30-5.90) m/uL Hgb 11.0 L (13.0-17.5) gm/dL Hct 34.9 L (39.0-53.0) % Neutrophils # 10.7 H (1.3-7.7) k/uL Lymphocytes # 0.7 L (1.0-4.8) k/uL Sodium 136 L (137-145) mmol/L Potassium 5.9 H (3.5-5.1) mmol/L Chloride 95 L (98-107) mmol/L Carbon Dioxide 33 H (22-30) mmol/L BUN 46 H (9-20) mg/dL Creatinine 1.58 H (0.66-1.25) mg/dL Glucose 130 H (74-99) mg/dL POC Glucose (mg/dL) 129 H (75-99) mg/dL 05/02/17 05/02/17 Range/Units 07:55 12:02 WBC (3.8-10.6) k/uL RBC (4.30-5.90) m/uL Hgb (13.0-17.5) gm/dL Hct (39.0-53.0) % Neutrophils # (1.3-7.7) k/uL Lymphocytes # (1.0-4.8) k/uL Sodium 136 L (137-145) mmol/L Potassium 5.5 H (3.5-5.1) mmol/L Chloride 97 L (98-107) mmol/L Carbon Dioxide 32 H (22-30) mmol/L BUN 42 H (9-20) mg/dL Creatinine 1.60 H (0.66-1.25) mg/dL Glucose 104 H (74-99) mg/dL POC Glucose (mg/dL) 141 H (75-99) mg/dL Assessment and Plan (1) Cellulitis Narrative/Plan: 71-year-old male with significant difficulties with significant edema related to volume overload from vascular disease, he is feeling much better at this time currently afebrile overall improved edema has not improved significantly, erythema is significantly improving, BUN/creatinine are improving, cultures currently negative anticipate transitioning patient to oral antibiotics will continue with Silvadene wraps for comfort Status: Acute (2) Diabetes Narrative/Plan: Currently well-controlled hemoglobin A1c was 6.0 Status: Acute Plan: We'll discuss the possibility of switching patient to oral antibiotics to reduce the sodium load patient's consuming per IV
[2017-05-02 21:29] LABS: Glucose,Whole Blood 99 mg/dL (75-99)
[2017-05-03] MEDS: LEVOTHYROXINE 75 MCG TAB PO SCH (06:29)
[2017-05-03] MEDS: LEVOTHYROXINE 100 MCG TAB PO SCH (06:29)
[2017-05-03 07:33] LABS: Glucose,Whole Blood 89 mg/dL (75-99)
[2017-05-03] MEDS: INSULIN LISPRO (humaLOG) 300 UNIT/3 ML VIAL SQ SCH ×4 (07:50→21:48)
[2017-05-03] MEDS: FUROSEMIDE 40 MG TAB PO SCH (08:05)
[2017-05-03] MEDS: SILVER sulfADIAZINE Cream 400 GM 1 APPLIC APPLIC TOPICAL SCH ×2 (08:05→21:49)
[2017-05-03] MEDS: ATORVASTATIN 80 MG TAB PO SCH (08:05)
[2017-05-03] MEDS: LOSARTAN 50 MG TAB PO SCH ×2 (08:05→21:46)
[2017-05-03] MEDS: RIVAROXABAN 10 MG TAB PO SCH (08:05)
[2017-05-03] MEDS: METOPROLOL TARTRATE 50 MG TAB PO SCH ×2 (08:05→21:47)
[2017-05-03] MEDS: ACETAMINOPHEN TAB 325 MG TAB PO PRN (08:07)
[2017-05-03] MEDS: PIPERACILLIN-TAZOBACTAM 3.375 GM in DEXTROSE/WATER 1 50ML.BAG IVPB SCH ×2 (09:05→15:53)
[2017-05-03 12:25] LABS: Glucose,Whole Blood 97 mg/dL (75-99)
[2017-05-03 17:18] LABS: Glucose,Whole Blood 106 mg/dL (75-99)
[2017-05-03] MEDS: traMADol 50 MG TAB PO PRN (18:24)
--- NOTE | 2017-05-03 19:30 | P.PN ---
Subjective Principal diagnosis: This is cellulitis left leg, with significant fluid retention improving. Patient currently weighs 184.8 kg a 6 kg weight loss, he is finally diuresing 71-year-old male who gives a history of a cat scratch to his left lower leg at the lateral ankle 2 months ago he has been been experiencing ongoing problems with cellulitis patient has been treated by my partner Dr. Mojica in outpatient setting patient has had multiple oral antibiotics, was not able to remember what it was. He has had some improvement. Patient has been on Zosyn and vancomycin IV piggyback and has been steadily improving blood sugars been running in the low 100s hemoglobin A1c was 6. He is currently afebrile and has gone from 186 kg on 04/29/2017 to 189 kg on 05/01/2017. Now his weight is 184.8 kg he is diuresed significantly anticipate switching to oral antibiotics and discharging sometime this weekend Objective - Vital Signs Vital signs: Vital Signs Temp 97.8 F 05/03/17 15:00 Pulse 71 05/03/17 15:00 Resp 20 05/03/17 15:00 BP 110/76 05/03/17 15:00 Pulse Ox 98 05/03/17 15:00 Intake & Output 05/03/17 05/03/17 05/04/17 06:59 18:59 06:59 Intake Total 400 480 Output Total 475 Balance 400 5 Weight 184.839 kg Intake: Oral 400 480 Output: Urine 475 Other: Voiding Method Urinal Urinal # Voids 2 1 # Bowel Movements 0 - Exam General: [Patient awake, alert and oriented times 3. Patient in no acute distress.] Morbidly obese HEENT: [PERRL. EOMI. No pharyngeal erythema or exudate.] Neck: [No adenopathy.] Cardiac: [Heart regular in rate and rhythm. No S3. No S4. No clicks, rubs. No murmur.] Lungs: [Clear to auscultation bilaterally.] Abdomen: [No mass. No organomegaly. Bowel sounds presnt and normoactive in all 4 quadrants.] Extremes: 3+ pedal edema to the left lower extreme 1+ to the right. There is erythema on the left flank extending from the foot up into the groin area which has been warm to touch and edematous. To the pretibial area area there are wounds currently without drainage. The right lower extreme there is erythema which is warm to the mid pretibial area, however the erythema is reducing significantly. Edema in bilateral lower extremes shows significant decrease weight has gone from 186kg on 04/29 to 189 KG 04/30/2017, now weight is 184.8 kg 86 kg weight loss : [] Musculoskeletal: [No joint erythema, edema or tenderness.] Skin: [No rash.] Neurologic: [No lateralizing deficits. CN II - XII grossly intact.] Lymphatic: [No adenopathy.] - Labs CBC & Chem 7: 05/01/17 19:42 05/02/17 07:55 Labs: Abnormal Lab Results - Last 24 Hours (Table) 05/03/17 Range/Units 17:14 POC Glucose (mg/dL) 106 H (75-99) mg/dL Assessment and Plan (1) Cellulitis Narrative/Plan: 71-year-old male with significant difficulties with significant edema related to volume overload from vascular disease, he is feeling much better at this time currently afebrile overall improved edema has not improved significantly, erythema is significantly improving, BUN/creatinine are improving, cultures currently negative anticipate transitioning patient to oral antibiotics will continue with Silvadene wraps for comfort Status: Acute (2) Diabetes Narrative/Plan: Currently well-controlled hemoglobin A1c was 6.0 Status: Acute Plan: We'll discuss the possibility of switching patient to oral antibiotics to reduce the sodium load patient's consuming per IV
[2017-05-03 20:39] LABS: Glucose,Whole Blood 121 mg/dL (75-99)
--- NOTE | 2017-05-03 21:15 | P.PN ---
Subjective Principal diagnosis: cellulitis left leg This is a 71-year-old male who gives history that he had a cat scratch to his left lower leg at the lateral ankle area 2 months ago and he has had ongoing problems with cellulitis. Patient states he has been treated by Dr. Mojica in the outpatient setting and has had oral antibiotics. He does not recall the name of the antibiotic. He states he did have some improvement but yesterday he had sudden onset of redness and swelling and went up into his thigh area and also developed fevers. Patient presented to [facility] emergency center with the above. His white count was 11.6, temperature 101.5. BUN is currently 34 with a creatinine of 1.46 with GFR of 48. Urinalysis was nitrate and leukoesterase negative and urine culture is in process. Blood culture is status received. He had a chest x-ray that showed cardiomegaly with mild heart failure with increased heart size. He did have a recent CTA of the abdominal aorta on April 11 as an outpatient ordered by Dr. Srinivasan which showed ascites adjacent to the liver and spleen. Pancreas was atrophic. Vascular calcifications within the aorta. Inferior vena cava is unremarkable. Most of the bowel unremarkable. 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 The anterior and posterior tibial arteries appear to be present and patent bilaterally although delineation of the origins can not be evaluated with hardening artifact at the level of the bilateral knees. Patient has been started on Zosyn and vancomycin and states that he is improved but some mild increase of redness just distal to the knee. But the foot and lower leg have definitely improved. Redness on the 5 also improved. He does not recall when his tetanus was last updated. He states that his shortness of breath is at his baseline. He is currently on IV Lasix with good urine output. He states his blood sugar has been running in the low 100s at home. hemoglobin A1c was 6. Now showing some improvement temp 98.1 Objective - Vital Signs Vital signs: Vital Signs Temp 97.8 F 05/03/17 15:00 Pulse 71 05/03/17 15:00 Resp 20 05/03/17 15:00 BP 110/76 05/03/17 15:00 Pulse Ox 98 05/03/17 15:00 Intake & Output 05/03/17 05/03/1717 06:59 18:59 06:59 Intake Total 400 480 Output Total 475 Balance 400 5 Weight 184.839 kg Intake: Oral 400 480 Output: Urine 475 Other: Voiding Method Urinal Urinal # Voids 2 1 # Bowel Movements 0 - Exam Gen: This is a morbidly obese 71-year-old male. He is sitting in bed and appears to be somewhat comfortable. HEENT: Head is atraumatic, normocephalic. Pupils equal, round. Sclerae is anicteric. NECK: Supple. No JVD. No lymphadenopathy. No thyromegaly. LUNGS: Diminished bilaterally with expiratory wheeze. No intercostal retractions. HEART: Irregular rate and rhythm. No murmur. ABDOMEN: Soft. Bowel sounds are present. No masses. No tenderness. EXTREMITIES: 3+ pedal edema to the left lower extremity and 1+ to the right lower extremity. There is erythema on the left leg extending from the foot up into the knee area with warmth to the touch and edema, improved all except at the area just distal to the knee but has been some increased warmth and erythema. Otherwise there has been improvement. is concerned. To the pretibial area, there are no wounds currently without drainage. The right lower extremity, there is erythema and warmth to the mid pretibial area. NEUROLOGICAL: Patient is awake, alert and oriented - Labs CBC & Chem 7: 05/01/17 19:42 05/02/17 07:55 Labs: Abnormal Lab Results - Last 24 Hours (Table) 05/03/17 05/03/17 Range/Units 17:14 20:38 POC Glucose (mg/dL) 106 H 121 H (75-99) mg/dL Laboratory Results WBC 13.1 k/uL (3.8-10.6) H 05/01/17 19:42 RBC 3.77 m/uL (4.30-5.90) L 05/01/17 19:42 Hgb 11.0 gm/dL (13.0-17.5) L 05/01/17 19:42 Hct 34.9 % (39.0-53.0) L 05/01/17 19:42 MCV 92.7 fL (80.0-100.0) 05/01/17 19:42 MCH 29.2 pg (25.0-35.0) 05/01/17 19:42 MCHC 31.5 g/dL (31.0-37.0) 05/01/17 19:42 RDW 14.8 % (11.5-15.5) 05/01/17 19:42 Plt Count 225 k/uL (150-450) 05/01/17 19:42 Neutrophils % 82 % 05/01/17 19:42 Lymphocytes % 6 % 05/01/17 19:42 Monocytes % 7 % 05/01/17 19:42 Eosinophils % 2 % 05/01/17 19:42 Basophils % 1 % 05/01/17 19:42 Neutrophils # 10.7 k/uL (1.3-7.7) H 05/01/17 19:42 Lymphocytes # 0.7 k/uL (1.0-4.8) L 05/01/17 19:42 Monocytes # 0.9 k/uL (0-1.0) 05/01/17 19:42 Eosinophils # 0.3 k/uL (0-0.7) 05/01/17 19:42 Basophils # 0.1 k/uL (0-0.2) 05/01/17 19:42 Hypochromasia Moderate 05/01/17 19:42 PT 24.8 sec (9.0-12.0) H 04/23/17 14:44 INR 2.6 (<1.1) 04/23/17 14:44 APTT 67.7 sec (22.0-30.0) H 04/23/17 14:44 Sodium 136 mmol/L (137-145) L 05/02/17 07:55 Potassium 5.5 mmol/L (3.5-5.1) H 05/02/17 07:55 Chloride 97 mmol/L (98-107) L 05/02/17 07:55 Carbon Dioxide 32 mmol/L (22-30) H 05/02/17 07:55 Anion Gap 7 mmol/L 05/02/17 07:55 BUN 42 mg/dL (9-20) H 05/02/17 07:55 Creatinine 1.60 mg/dL (0.66-1.25) H 05/02/17 07:55 Est GFR (MDRD) Af Amer 52 (>60 ml/min/1.73 sqM) 05/02/17 07:55 Est GFR (MDRD) Non-Af 43 (>60 ml/min/1.73 sqM) 05/02/17 07:55 Glucose 104 mg/dL (74-99) H 05/02/17 07:55 POC Glucose (mg/dL) 121 mg/dL (75-99) H 05/03/17 20:38 POC Glu Dealer Sales Manager Flaca Foster 05/03/17 20:[address] Glu mg/dL 126 mg/dL 04/24/17 05:35 Hemoglobin A1c 6.0 % (4.2-6.1) 04/24/17 05:35 Plasma Lactic Acid Juan 1.0 mmol/L (0.7-2.0) 04/24/17 05:35 Calcium 8.7 mg/dL (8.4-10.2) 05/02/17 07:55 Magnesium 2.0 mg/dL (1.6-2.3) 04/28/17 08:26 Total Bilirubin 2.3 mg/dL (0.2-1.3) H 04/23/17 14:44 AST 30 U/L (17-59) 04/23/17 14:44 ALT 26 U/L (21-72) 04/23/17 14:44 Alkaline Phosphatase 63 U/L (38-126) 04/23/17 14:44 NT-Pro-B Natriuret Pep 6640 pg/mL 04/23/17 14:44 Total Protein 6.8 g/dL (6.3-8.2) 04/23/17 14:44 Albumin 3.7 g/dL (3.5-5.0) 04/23/17 14:44 Urine Color Yellow 04/23/17 17:00 Urine Appearance Clear (Clear) 04/23/17 17:00 Urine pH 8.0 (5.0-8.0) 04/23/17 17:00 Ur Specific [place] 1.017 (1.001-1.035) 04/23/17 17:00 Urine Protein 1+ (Negative) H 04/23/17 17:00 Urine Glucose (UA) Negative (Negative) 04/23/17 17:00 Urine Ketones Negative (Negative) 04/23/17 17:00 Urine Blood Negative (Negative) 04/23/17 17:00 Urine Nitrite Negative (Negative) 04/23/17 17:00 Urine Bilirubin Negative (Negative) 04/23/17 17:00 Urine Urobilinogen 4.0 mg/dL (<2.0) 04/23/17 17:00 Ur Leukocyte Esterase Negative (Negative) 04/23/17 17:00 Urine WBC 1 /hpf (0-5) 04/23/17 17:00 Ur Squamous Epith Cells <1 /hpf (0-4) 04/23/17 17:00 Granular Casts 1 /lpf (0) 04/23/17 17:00 Vancomycin Trough 28.2 ug/mL 04/30/17 11:25 Random Vancomycin 17.5 ug/mL 05/02/17 07:55 Microbiology 04/23/17 14:44 Blood Blood Culture - Final No Growth after 144 hours 04/23/17 17:00 Urine,Voided Urine Culture - Final Assessment and Plan (1) Cellulitis Narrative/Plan: 71-year-old male who has significant difficulties with significant edema related to volume overload and peripheral vascular disease. He is not feeling better except she did have a temperature 100.8. Overall improved. Edema is improved. Erythema is improving. Creatinine increased possibly due to the diuresis. We'll monitor closely. Cultures are negative at this point in time. If fever resolves will likely be able to transition to oral antibiotics soon. Continue with the Silvadene wraps which is allowed improvement. As further improvement occurs we'll plan on transitioning to cefuroxime to finish his course of therapy. Once he is home get back to his compression devices including the CircAid and the sequential compression pumps. Status: Acute
[2017-05-04] MEDS: traMADol 50 MG TAB PO PRN ×3 (00:23→13:14)
[2017-05-04] MEDS: PIPERACILLIN-TAZOBACTAM 3.375 GM in DEXTROSE/WATER 1 50ML.BAG IVPB SCH ×3 (00:30→17:53)
[2017-05-04] MEDS: diphenhydrAMINE 25 MG CAP PO PRN (06:17)
[2017-05-04] MEDS: LEVOTHYROXINE 75 MCG TAB PO SCH (06:17)
[2017-05-04] MEDS: LEVOTHYROXINE 100 MCG TAB PO SCH (06:17)
[2017-05-04 07:24] LABS: Glucose,Whole Blood 154 mg/dL (75-99)
[2017-05-04] MEDS: INSULIN LISPRO (humaLOG) 300 UNIT/3 ML VIAL SQ SCH ×4 (08:00→21:12)
[2017-05-04 08:46] LABS: Basophils # (A) 0.1 k/uL (0-0.2); Basophils % (A) 0 %; CH 28.3; CHCM 30.5; Eosinophils # (A) 0.1 k/uL (0-0.7); Eosinophils % (A) 0 %; HCT 34.6 % (39.0-53.0); HDW 2.85; HGB 10.7 gm/dL (13.0-17.5); Hypochromasia Moderate; Luc # (Auto) 0.32; Luc % (Auto) 2; Lymphocytes # (A) 0.7 k/uL (1.0-4.8); Lymphocytes % (A) 5 %; MCH 28.9 pg (25.0-35.0); MCV 93.1 fL (80.0-100.0); Mean Platelet Volume 7.5; Monocytes % (A) 6 %; Neutrophils # (A) 13.8 k/uL (1.3-7.7); Neutrophils % (A) 87 %; RBC 3.72 m/uL (4.30-5.90); RDW 14.7 % (11.5-15.5); WBC 15.9 k/uL (3.8-10.6); WBC (Perox) 16.75
[2017-05-04] MEDS ORDERED: MORPHINE SULFATE 4 MG/ML SYRINGE IVP STA (08:47)
[2017-05-04] MEDS: LOSARTAN 50 MG TAB PO SCH (08:59)
[2017-05-04] MEDS: FUROSEMIDE 40 MG TAB PO SCH (08:59)
[2017-05-04] MEDS: METOPROLOL TARTRATE 50 MG TAB PO SCH ×3 (08:59→21:13)
[2017-05-04] MEDS: RIVAROXABAN 10 MG TAB PO SCH (08:59)
[2017-05-04] MEDS: SILVER sulfADIAZINE Cream 400 GM 1 APPLIC APPLIC TOPICAL SCH ×2 (09:00→21:12)
[2017-05-04] MEDS: ATORVASTATIN 80 MG TAB PO SCH (09:00)
[2017-05-04] MEDS: HYDROcodone/APAP 5-325MG 1 EACH TAB PO PRN ×2 (09:05→17:55)
--- NOTE | 2017-05-04 09:17 | XR ---
EXAMINATION TYPE: XR elbow complete LT DATE OF EXAM: 05/04/2017 CLINICAL HISTORY: Left elbow pain. TECHNIQUE: Frontal, lateral and oblique images of the left elbow are obtained. COMPARISON: None FINDINGS: There is no acute fracture/dislocation evident in the left elbow. No abnormal fat pad sig ns are seen. There is spurring from the olecranon at distal triceps tendon attachment. There is spurr ing at ulnohumeral articulation. The overlying soft tissue appears unremarkable. IMPRESSION: There is no acute fracture or dislocation in the left elbow. Degenerative findings.
[2017-05-04 09:22] LABS: Anion Gap 9 mmol/L; Blood Urea Nitrogen 31 mg/dL (9-20); Calcium 8.8 mg/dL (8.4-10.2); Carbon Dioxide 30 mmol/L (22-30); Chloride 95 mmol/L (98-107); Glucose 151 mg/dL (74-99); Non-African American GFR(MDRD) 54 (>60 ml/min/1.73 sqM); Potassium 5.5 mmol/L (3.5-5.1); Sodium 134 mmol/L (137-145)
[2017-05-04 11:53] VITALS: BMI 48.2
[2017-05-04 12:13] LABS: Glucose,Whole Blood 132 mg/dL (75-99)
--- NOTE | 2017-05-04 13:14 | P.PN ---
Subjective Principal diagnosis: Chronic atrial fibrillation This is a pleasant 71-year-old gentleman with a known chronic atrial fibrillation who follow-up with our office as an outpatient who was admitted to the hospital with left lower extremities cellulitis. We initially seen the patient and we signed off on the patient. We requested to see the patient again because he was throwing cardiac arrhythmia in the term of mainly and controlled heart rate as well as multiple nonsustained ventricular tachycardia. The patient is asymptomatic from the cardiovascular standpoint overview. The reviewing the blood work indicates mild hyperkalemia. I am going to DC the losartan and repeat the potassium in the morning. Beside that I would increase the dose of metoprolol to 50 mg by mouth 3 times a day for better heart rate control. Objective - Vital Signs Vital signs: Vital Signs Temp 97.9 F 05/04/17 07:00 Pulse 117 H 05/04/17 09:32 Resp 16 05/04/17 07:00 BP 153/72 05/04/17 09:32 Pulse Ox 96 05/04/17 07:00 Intake & Output 05/03/17 05/04/17 05/04/17 18:59 06:59 18:59 Intake Total 480 340 Output Total 475 1500 125 Balance 5 -1160 -125 Weight 184.7 kg 184.7 kg Intake: Oral 480 340 Output: Urine 475 1500 125 Other: Voiding Method Urinal # Voids 1 1 # Bowel Movements 0 0 - Constitutional General appearance: Present: no acute distress - Respiratory Respiratory: bilateral: diminished - Cardiovascular Rhythm: irregularly irregular Heart sounds: normal: S1, S2 - Labs CBC & Chem 7: 05/04/17 08:24 05/04/17 08:24 Labs: Abnormal Lab Results - Last 24 Hours (Table) 05/03/17 05/03/17 05/04/17 Range/Units 17:14 20:38 07:23 WBC (3.8-10.6) k/uL RBC (4.30-5.90) m/uL Hgb (13.0-17.5) gm/dL Hct (39.0-53.0) % Neutrophils # (1.3-7.7) k/uL Lymphocytes # (1.0-4.8) k/uL Sodium (137-145) mmol/L Potassium (3.5-5.1) mmol/L Chloride (98-107) mmol/L BUN (9-20) mg/dL Creatinine (0.66-1.25) mg/dL Glucose (74-99) mg/dL POC Glucose (mg/dL) 106 H 121 H 154 H (75-99) mg/dL 05/04/17 05/04/17 05/04/17 Range/Units 08:24 08:24 12:03 WBC 15.9 H (3.8-10.6) k/uL RBC 3.72 L (4.30-5.90) m/uL Hgb 10.7 L (13.0-17.5) gm/dL Hct 34.6 L (39.0-53.0) % Neutrophils # 13.8 H (1.3-7.7) k/uL Lymphocytes # 0.7 L (1.0-4.8) k/uL Sodium 134 L (137-145) mmol/L Potassium 5.5 H (3.5-5.1) mmol/L Chloride 95 L (98-107) mmol/L BUN 31 H (9-20) mg/dL Creatinine 1.31 H (0.66-1.25) mg/dL Glucose 151 H (74-99) mg/dL POC Glucose (mg/dL) 132 H (75-99) mg/dL Assessment and Plan Plan: Assessment #1 chronic atrial fibrillation with uncontrolled heart rate #2 cardiac arrhythmia in the term of nonsustained VT #3 cellulitis of the left lower extremities #4 multiple comorbid conditions Plan #1 DC the losartan #2 increase the dose of metoprolol for better heart rate control and better controlled of arrhythmia
--- NOTE | 2017-05-04 13:17 | P.PN ---
Subjective Principal diagnosis: cellulitis left leg This is a 71-year-old male who gives history that he had a cat scratch to his left lower leg at the lateral ankle area 2 months ago and he has had ongoing problems with cellulitis. Patient states he has been treated by Dr. Mojica in the outpatient setting and has had oral antibiotics. He does not recall the name of the antibiotic. He states he did have some improvement but yesterday he had sudden onset of redness and swelling and went up into his thigh area and also developed fevers. Patient presented to [facility] emergency center with the above. His white count was 11.6, temperature 101.5. BUN is currently 34 with a creatinine of 1.46 with GFR of 48. Urinalysis was nitrate and leukoesterase negative and urine culture is in process. Blood culture is status received. He had a chest x-ray that showed cardiomegaly with mild heart failure with increased heart size. He did have a recent CTA of the abdominal aorta on April 11 as an outpatient ordered by Dr. Srinivasan which showed ascites adjacent to the liver and spleen. Pancreas was atrophic. Vascular calcifications within the aorta. Inferior vena cava is unremarkable. Most of the bowel unremarkable. 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 The anterior and posterior tibial arteries appear to be present and patent bilaterally although delineation of the origins can not be evaluated with hardening artifact at the level of the bilateral knees. Patient has been started on Zosyn and vancomycin and states that he is improved but some mild increase of redness just distal to the knee. But the foot and lower leg have definitely improved. Redness on the 5 also improved. He does not recall when his tetanus was last updated. He states that his shortness of breath is at his baseline. He is currently on IV Lasix with good urine output. He states his blood sugar has been running in the low 100s at home. hemoglobin A1c was 6. Now showing some improvement temp 98.1 Is improved again further today. His leukocytosis did bump up just a bit. Is also having some pain to his left elbow. X-rays were performed that is negative. Objective - Vital Signs Vital signs: Vital Signs Temp 97.9 F 05/04/17 07:00 Pulse 117 H 05/04/17 09:32 Resp 16 05/04/17 07:00 BP 153/72 05/04/17 09:32 Pulse Ox 96 05/04/17 07:00 Intake & Output 05/03/17 05/04/17 05/04/17 18:59 06:59 18:59 Intake Total 480 340 Output Total 475 1500 125 Balance 5 -1160 -125 Weight 184.7 kg 184.7 kg Intake: Oral 480 340 Output: Urine 475 1500 125 Other: Voiding Method Urinal # Voids 1 1 # Bowel Movements 0 0 - Exam Gen: This is a morbidly obese 71-year-old male. He is sitting in bed and appears to be somewhat comfortable. HEENT: Head is atraumatic, normocephalic. Pupils equal, round. Sclerae is anicteric. NECK: Supple. No JVD. No lymphadenopathy. No thyromegaly. LUNGS: Diminished bilaterally with expiratory wheeze. No intercostal retractions. HEART: Irregular rate and rhythm. No murmur. ABDOMEN: Soft. Bowel sounds are present. No masses. No tenderness. EXTREMITIES: 3+ pedal edema to the left lower extremity and 1+ to the right lower extremity. There is erythema on the left leg extending from the foot up into the knee area with warmth to the touch and edema, improved all except at the area just distal to the knee but has been some increased warmth and erythema. Otherwise there has been improvement. To the pretibial area, there are no wounds currently without drainage. The right lower extremity, there is improvement in the erythema and warmth to the mid pretibial area. Is however having some left elbow pain. Is uncomfortable to range of motion. No palpable effusion. No trauma. NEUROLOGICAL: Patient is awake, alert and oriented - Labs CBC & Chem 7: 05/04/17 08:24 05/04/17 08:24 Labs: Abnormal Lab Results - Last 24 Hours (Table) 05/03/17 05/03/17 05/04/17 Range/Units 17:14 20:38 07:23 WBC (3.8-10.6) k/uL RBC (4.30-5.90) m/uL Hgb (13.0-17.5) gm/dL Hct (39.0-53.0) % Neutrophils # (1.3-7.7) k/uL Lymphocytes # (1.0-4.8) k/uL Sodium (137-145) mmol/L Potassium (3.5-5.1) mmol/L Chloride (98-107) mmol/L BUN (9-20) mg/dL Creatinine (0.66-1.25) mg/dL Glucose (74-99) mg/dL POC Glucose (mg/dL) 106 H 121 H 154 H (75-99) mg/dL 05/04/17 05/04/17 05/04/17 Range/Units 08:24 08:24 12:03 WBC 15.9 H (3.8-10.6) k/uL RBC 3.72 L (4.30-5.90) m/uL Hgb 10.7 L (13.0-17.5) gm/dL Hct 34.6 L (39.0-53.0) % Neutrophils # 13.8 H (1.3-7.7) k/uL Lymphocytes # 0.7 L (1.0-4.8) k/uL Sodium 134 L (137-145) mmol/L Potassium 5.5 H (3.5-5.1) mmol/L Chloride 95 L (98-107) mmol/L BUN 31 H (9-20) mg/dL Creatinine 1.31 H (0.66-1.25) mg/dL Glucose 151 H (74-99) mg/dL POC Glucose (mg/dL) 132 H (75-99) mg/dL Laboratory Results WBC 15.9 k/uL (3.8-10.6) H 05/04/17 08:24 RBC 3.72 m/uL (4.30-5.90) L 05/04/17 08:24 Hgb 10.7 gm/dL (13.0-17.5) L 05/04/17 08:24 Hct 34.6 % (39.0-53.0) L 05/04/17 08:24 MCV 93.1 fL (80.0-100.0) 05/04/17 08:24 MCH 28.9 pg (25.0-35.0) 05/04/17 08:24 MCHC 31.0 g/dL (31.0-37.0) 05/04/17 08:24 RDW 14.7 % (11.5-15.5) 05/04/17 08:24 Plt Count 260 k/uL (150-450) 05/04/17 08:24 Neutrophils % 87 % 05/04/17 08:24 Lymphocytes % 5 % 05/04/17 08:24 Monocytes % 6 % 05/04/17 08:24 Eosinophils % 0 % 05/04/17 08:24 Basophils % 0 % 05/04/17 08:24 Neutrophils # 13.8 k/uL (1.3-7.7) H 05/04/17 08:24 Lymphocytes # 0.7 k/uL (1.0-4.8) L 05/04/17 08:24 Monocytes # 1.0 k/uL (0-1.0) 05/04/17 08:24 Eosinophils # 0.1 k/uL (0-0.7) 05/04/17 08:24 Basophils # 0.1 k/uL (0-0.2) 05/04/17 08:24 Hypochromasia Moderate 05/04/17 08:24 PT 24.8 sec (9.0-12.0) H 04/23/17 14:44 INR 2.6 (<1.1) 04/23/17 14:44 APTT 67.7 sec (22.0-30.0) H 04/23/17 14:44 Sodium 134 mmol/L (137-145) L 05/04/17 08:24 Potassium 5.5 mmol/L (3.5-5.1) H 05/04/17 08:24 Chloride 95 mmol/L (98-107) L 05/04/17 08:24 Carbon Dioxide 30 mmol/L (22-30) 05/04/17 08:24 Anion Gap 9 mmol/L 05/04/17 08:24 BUN 31 mg/dL (9-20) H 05/04/17 08:24 Creatinine 1.31 mg/dL (0.66-1.25) H 05/04/17 08:24 Est GFR (MDRD) Af Amer >60 (>60 ml/min/1.73 sqM) 05/04/17 08:24 Est GFR (MDRD) Non-Af 54 (>60 ml/min/1.73 sqM) 05/04/17 08:24 Glucose 151 mg/dL (74-99) H 05/04/17 08:24 POC Glucose (mg/dL) 132 mg/dL (75-99) H 05/04/17 12:03 POC Glu Forging Machine Hand ID Maggi Boucher 05/04/17 12:[address] Glu mg/dL 126 mg/dL 04/24/17 05:35 Hemoglobin A1c 6.0 % (4.2-6.1) 04/24/17 05:35 Plasma Lactic Acid Juan 1.0 mmol/L (0.7-2.0) 04/24/17 05:35 Calcium 8.8 mg/dL (8.4-10.2) 05/04/17 08:24 Magnesium 2.0 mg/dL (1.6-2.3) 04/28/17 08:26 Total Bilirubin 2.3 mg/dL (0.2-1.3) H 04/23/17 14:44 AST 30 U/L (17-59) 04/23/17 14:44 ALT 26 U/L (21-72) 04/23/17 14:44 Alkaline Phosphatase 63 U/L (38-126) 04/23/17 14:44 NT-Pro-B Natriuret Pep 6640 pg/mL 04/23/17 14:44 Total Protein 6.8 g/dL (6.3-8.2) 04/23/17 14:44 Albumin 3.7 g/dL (3.5-5.0) 04/23/17 14:44 Urine Color Yellow 04/23/17 17:00 Urine Appearance Clear (Clear) 04/23/17 17:00 Urine pH 8.0 (5.0-8.0) 04/23/17 17:00 Ur Specific [place] 1.017 (1.001-1.035) 04/23/17 17:00 Urine Protein 1+ (Negative) H 04/23/17 17:00 Urine Glucose (UA) Negative (Negative) 04/23/17 17:00 Urine Ketones Negative (Negative) 04/23/17 17:00 Urine Blood Negative (Negative) 04/23/17 17:00 Urine Nitrite Negative (Negative) 04/23/17 17:00 Urine Bilirubin Negative (Negative) 04/23/17 17:00 Urine Urobilinogen 4.0 mg/dL (<2.0) 04/23/17 17:00 Ur Leukocyte Esterase Negative (Negative) 04/23/17 17:00 Urine WBC 1 /hpf (0-5) 04/23/17 17:00 Ur Squamous Epith Cells <1 /hpf (0-4) 04/23/17 17:00 Granular Casts 1 /lpf (0) 04/23/17 17:00 Vancomycin Trough 28.2 ug/mL 04/30/17 11:25 Random Vancomycin 13.4 ug/mL 05/04/17 08:24 Microbiology 04/23/17 14:44 Blood Blood Culture - Final No Growth after 144 hours 04/23/17 17:00 Urine,Voided Urine Culture - Final Assessment and Plan (1) Cellulitis Narrative/Plan: 71-year-old male who has significant difficulties with significant edema related to volume overload and peripheral vascular disease. He is not feeling better except she did have a temperature 100.8. Overall improved. Edema is improved. Erythema is improving. Creatinine increased possibly due to the diuresis. We'll monitor closely. Cultures are negative at this point in time. If fever resolves will likely be able to transition to oral antibiotics soon. Continue with the Silvadene wraps which is allowed improvement. As further improvement occurs we'll plan on transitioning to cefuroxime to finish his course of therapy. Once he is home get back to his compression devices including the CircAid and the sequential compression pumps. The leg is improving. However now is having some pains of the left elbow. His leukocytosis also increased just slightly. Like to have his white cell count checks the morning. If it is improved he may go home on oral cefuroxime as noted. Elbow pain is noted concern this could be gout would query with the primary care. Status: Acute
[2017-05-04] MEDS: VANCOMYCIN 2,250 MG in SODIUM CHLORIDE 0.9% 500 ML IVPB SCH (15:45)
[2017-05-04 17:27] LABS: Glucose,Whole Blood 142 mg/dL (75-99)
--- NOTE | 2017-05-04 17:27 | P.PN ---
Subjective Principal diagnosis: This is cellulitis left leg, with significant fluid retention improving. Patient currently weighs 184.8 kg a 6 kg weight loss, he is finally diuresing Patient also complains of left elbow pain and discomfort and no fracture is noted on x-ray. Sed rate and uric acid level were ordered 71-year-old male who gives a history of a cat scratch to his left lower leg at the lateral ankle 2 months ago he has been been experiencing ongoing problems with cellulitis patient has been treated by my partner Dr. Mojica in outpatient setting patient has had multiple oral antibiotics, was not able to remember what it was. He has had some improvement. Patient has been on Zosyn and vancomycin IV piggyback and has been steadily improving blood sugars been running in the low 100s hemoglobin A1c was 6. He is currently afebrile and has gone from 186 kg on 04/29/2017 to 189 kg on 05/01/2017. Now his weight is 184.8 kg he is diuresed significantly anticipate switching to oral antibiotics and discharging sometime this weekend Objective - Vital Signs Vital signs: Vital Signs Temp 97.8 F 05/04/17 15:00 Pulse 85 05/04/17 15:00 Resp 16 05/04/17 15:00 BP 123/55 05/04/17 15:00 Pulse Ox 99 05/04/17 15:00 Intake & Output 05/03/17 05/04/17 05/04/17 18:59 06:59 18:59 Intake Total 480 340 Output Total 475 1500 250 Balance 5 -1160 -250 Weight 184.7 kg 184.7 kg Intake: Oral 480 340 Output: Urine 475 1500 250 Other: Voiding Method Urinal Urinal # Voids 1 1 # Bowel Movements 0 0 - Exam General: [Patient awake, alert and oriented times 3. Patient in no acute distress.] Morbidly obese HEENT: [PERRL. EOMI. No pharyngeal erythema or exudate.] Neck: [No adenopathy.] Cardiac: [Heart regular in rate and rhythm. No S3. No S4. No clicks, rubs. No murmur.] Lungs: [Clear to auscultation bilaterally.] Abdomen: [No mass. No organomegaly. Bowel sounds presnt and normoactive in all 4 quadrants.] Extremes: 3+ pedal edema to the left lower extreme 1+ to the right. There is erythema on the left flank extending from the foot up into the groin area which has been warm to touch and edematous. To the pretibial area area there are wounds currently without drainage. The right lower extreme there is erythema which is warm to the mid pretibial area, however the erythema is reducing significantly. Edema in bilateral lower extremes shows significant decrease weight has gone from 186kg on 04/29 to 189 KG 04/30/2017, now weight is 184.8 kg 86 kg weight loss : [] Musculoskeletal: [No joint erythema, edema or tenderness.] Skin: [No rash.] Neurologic: [No lateralizing deficits. CN II - XII grossly intact.] Lymphatic: [No adenopathy.] - Labs CBC & Chem 7: 05/04/17 08:24 05/04/17 08:24 Labs: Abnormal Lab Results - Last 24 Hours (Table) 05/03/17 05/04/17 05/04/17 Range/Units 20:38 07:23 08:24 WBC (3.8-10.6) k/uL RBC (4.30-5.90) m/uL Hgb (13.0-17.5) gm/dL Hct (39.0-53.0) % Neutrophils # (1.3-7.7) k/uL Lymphocytes # (1.0-4.8) k/uL Sodium 134 L (137-145) mmol/L Potassium 5.5 H (3.5-5.1) mmol/L Chloride 95 L (98-107) mmol/L BUN 31 H (9-20) mg/dL Creatinine 1.31 H (0.66-1.25) mg/dL Glucose 151 H (74-99) mg/dL POC Glucose (mg/dL) 121 H 154 H (75-99) mg/dL 05/04/17 05/04/17 Range/Units 08:24 12:03 WBC 15.9 H (3.8-10.6) k/uL RBC 3.72 L (4.30-5.90) m/uL Hgb 10.7 L (13.0-17.5) gm/dL Hct 34.6 L (39.0-53.0) % Neutrophils # 13.8 H (1.3-7.7) k/uL Lymphocytes # 0.7 L (1.0-4.8) k/uL Sodium (137-145) mmol/L Potassium (3.5-5.1) mmol/L Chloride (98-107) mmol/L BUN (9-20) mg/dL Creatinine (0.66-1.25) mg/dL Glucose (74-99) mg/dL POC Glucose (mg/dL) 132 H (75-99) mg/dL Assessment and Plan (1) Cellulitis Narrative/Plan: 71-year-old male with significant difficulties with significant edema related to volume overload from vascular disease, he is feeling much better at this time currently afebrile overall improved edema has not improved significantly, erythema is significantly improving, BUN/creatinine are improving, cultures currently negative anticipate transitioning patient to oral antibiotics will continue with Silvadene wraps for comfort Status: Acute (2) Diabetes Narrative/Plan: Currently well-controlled hemoglobin A1c was 6.0 Status: Acute Plan: We'll discuss the possibility of switching patient to oral pharynx E axetil if patient is afebrile tomorrow, and if white count is diminished tomorrow
[2017-05-04 21:04] LABS: Glucose,Whole Blood 139 mg/dL (75-99)
[2017-05-05 00:35] LABS: Glucose,Whole Blood 93 mg/dL (75-99)
[2017-05-05] MEDS: PIPERACILLIN-TAZOBACTAM 3.375 GM in DEXTROSE/WATER 1 50ML.BAG IVPB SCH ×2 (01:33→08:44)
[2017-05-05] MEDS: LEVOTHYROXINE 100 MCG TAB PO SCH (06:29)
[2017-05-05] MEDS: LEVOTHYROXINE 75 MCG TAB PO SCH (06:29)
[2017-05-05 07:27] LABS: Glucose,Whole Blood 81 mg/dL (75-99)
[2017-05-05] MEDS: INSULIN LISPRO (humaLOG) 300 UNIT/3 ML VIAL SQ SCH ×4 (07:43→22:54)
[2017-05-05 08:09] LABS: Basophils # (A) 0.1 k/uL (0-0.2); Basophils % (A) 0 %; CH 28.3; CHCM 30.2; Eosinophils # (A) 0.3 k/uL (0-0.7); Eosinophils % (A) 2 %; HCT 34.1 % (39.0-53.0); HGB 10.4 gm/dL (13.0-17.5); Hypochromasia Marked; Luc # (Auto) 0.32; Luc % (Auto) 2; Lymphocytes % (A) 6 %; MCH 28.7 pg (25.0-35.0); MCHC 30.5 g/dL (31.0-37.0); MCV 94.1 fL (80.0-100.0); Mean Platelet Volume 7.5; Monocytes # (A) 1.1 k/uL (0-1.0); Monocytes % (A) 6 %; Neutrophils # (A) 14.3 k/uL (1.3-7.7); Neutrophils % (A) 84 %; RBC 3.62 m/uL (4.30-5.90); RDW 14.9 % (11.5-15.5); WBC 17.2 k/uL (3.8-10.6)
[2017-05-05 08:23] LABS: Anion Gap 9 mmol/L; Blood Urea Nitrogen 35 mg/dL (9-20); Calcium 8.5 mg/dL (8.4-10.2); Carbon Dioxide 29 mmol/L (22-30); Chloride 95 mmol/L (98-107); Glucose 78 mg/dL (74-99); Non-African American GFR(MDRD) 51 (>60 ml/min/1.73 sqM); Potassium 5.6 mmol/L (3.5-5.1); Sodium 133 mmol/L (137-145)
[2017-05-05] MEDS: METOPROLOL TARTRATE 50 MG TAB PO SCH ×3 (08:44→22:54)
[2017-05-05] MEDS: RIVAROXABAN 10 MG TAB PO SCH (08:44)
[2017-05-05] MEDS: ATORVASTATIN 80 MG TAB PO SCH (08:44)
[2017-05-05] MEDS: FUROSEMIDE 40 MG TAB PO SCH (08:45)
[2017-05-05] MEDS: HYDROcodone/APAP 5-325MG 1 EACH TAB PO PRN ×3 (08:50→20:20)
--- NOTE | 2017-05-05 11:26 | P.PN ---
Subjective Principal diagnosis: This is cellulitis left leg, with significant fluid retention improving. Patient currently weighs 187 kg . Sed rate is within normal limits, uric acid is within normal limits. Will repeat blood culture urine culture and sputum culture if obtainable repeat chest x-ray, to assess why white count has elevated. Hgb A1c was recently noted to be 6.0. We'll also increase Lasix to 60 daily orally to improve her diuresis, as well as correct potassium. We will also stop Zosyn and change patient to oral cefuroxime axetil 500 mg twice daily and will continue Vanco through tomorrow 71-year-old male who gives a history of a cat scratch to his left lower leg at the lateral ankle 2 months ago he has been been experiencing ongoing problems with cellulitis patient has been treated by my partner Dr. Mojica in outpatient setting patient has had multiple oral antibiotics, was not able to remember what it was. He has had some improvement. Patient has been on Zosyn and vancomycin IV piggyback and has been steadily improving blood sugars been running in the low 100s hemoglobin A1c was 6. He is currently afebrile Objective - Vital Signs Vital signs: Vital Signs Temp 98.7 F 05/05/17 07:00 Pulse 115 H 05/05/17 07:00 Resp 20 05/05/17 07:00 BP 120/43 05/05/17 07:00 Pulse Ox 95 05/05/17 07:00 Intake & Output 05/04/17 05/05/17 05/05/17 18:59 06:59 18:59 Intake Total 550 Output Total 251 200 Balance 299 -200 Weight 184.7 kg 187 kg Intake: Intake, IV Titration 550 Amount Piperacillin-Tazobactam 3 50 .375 gm In Dextrose/Water 1 50ml.bag @ 12.5 mls/hr IVPB Q8HR [facility] Rx#: [id number] Vancomycin 2,250 mg In 500 Sodium Chloride 0.9% 500 ml @ 167 mls/hr IVPB Q36H [facility] Rx#:[id number] Output: Urine 250 200 Stool 1 Other: Voiding Method Urinal # Voids 200 - Exam General: [Patient awake, alert and oriented times 3. Patient in no acute distress.] Morbidly obese HEENT: [PERRL. EOMI. No pharyngeal erythema or exudate.] Neck: [No adenopathy.] Cardiac: [Heart regular in rate and rhythm. No S3. No S4. No clicks, rubs. No murmur.] Lungs: [Clear to auscultation bilaterally.] Abdomen: [No mass. No organomegaly. Bowel sounds presnt and normoactive in all 4 quadrants.] Extremes: 3+ pedal edema to the left lower extreme 1+ to the right. There is erythema on the left flank extending from the foot up into the groin area which has been warm to touch and edematous. To the pretibial area area there are wounds currently without drainage. The right lower extreme there is erythema which is warm to the mid pretibial area, however the erythema is reducing significantly. Edema in bilateral lower extremes shows improvement : [] Musculoskeletal: [No joint erythema, edema or tenderness.] Skin: [No rash.] Neurologic: [No lateralizing deficits. CN II - XII grossly intact.] Lymphatic: [No adenopathy.] - Labs CBC & Chem 7: 05/05/17 07:52 05/05/17 07:52 Labs: Abnormal Lab Results - Last 24 Hours (Table) 05/04/17 05/04/17 05/04/17 Range/Units 08:24 12:03 17:03 WBC (3.8-10.6) k/uL RBC (4.30-5.90) m/uL Hgb (13.0-17.5) gm/dL Hct (39.0-53.0) % MCHC (31.0-37.0) g/dL Neutrophils # (1.3-7.7) k/uL Monocytes # (0-1.0) k/uL ESR 93 H (0-15) mm/hr Sodium (137-145) mmol/L Potassium (3.5-5.1) mmol/L Chloride (98-107) mmol/L BUN (9-20) mg/dL Creatinine (0.66-1.25) mg/dL POC Glucose (mg/dL) 132 H 142 H (75-99) mg/dL 05/04/17 05/05/17 05/05/17 Range/Units 21:03 07:52 07:52 WBC 17.2 H (3.8-10.6) k/uL RBC 3.62 L (4.30-5.90) m/uL Hgb 10.4 L (13.0-17.5) gm/dL Hct 34.1 L (39.0-53.0) % MCHC 30.5 L (31.0-37.0) g/dL Neutrophils # 14.3 H (1.3-7.7) k/uL Monocytes # 1.1 H (0-1.0) k/uL ESR (0-15) mm/hr Sodium 133 L (137-145) mmol/L Potassium 5.6 H (3.5-5.1) mmol/L Chloride 95 L (98-107) mmol/L BUN 35 H (9-20) mg/dL Creatinine 1.38 H (0.66-1.25) mg/dL POC Glucose (mg/dL) 139 H (75-99) mg/dL Assessment and Plan (1) Cellulitis Narrative/Plan: 71-year-old male with significant difficulties with significant edema related to volume overload from vascular disease, he is feeling much better at this time currently afebrile overall improved edema has not improved significantly, erythema is significantly improving, BUN/creatinine are improving, cultures currently negative anticipate transitioning patient to oral antibiotics will continue with Silvadene wraps for comfort Status: Acute (2) Diabetes Narrative/Plan: Currently well-controlled hemoglobin A1c was 6.0 Status: Acute Plan: Patient is currently afebrile, however his white count increased from 15,000-17, 000 overnight, ordered blood cultures urine culture and sputum culture will get chest x-ray. Also patient's potassium increased to 5.6 and believe will increase Lasix to 60 mg orally also will change to cefuroxime axetil 500 mg twice daily We'll stop IV Zosyn, continue Vanco for now we will reevaluate tomorrow
--- NOTE | 2017-05-05 11:38 | XR ---
EXAMINATION TYPE: XR chest 2V DATE OF EXAM: 05/05/2017 COMPARISON: Chest x-ray April 24, 2017. HISTORY: Cough. TECHNIQUE: Frontal and lateral views of the chest are obtained. FINDINGS: There is persisting cardiomegaly with perhaps new mild central vascular congestion and new tiny bilateral pleural effusions now present as there is blunting of posterior costophrenic angles. No pneumothorax is seen bilaterally. The osseous structures are intact. IMPRESSION: Suspect CHF exacerbation or fluid overload state as there is cardiomegaly redemonstrated with new tiny bilateral pleural effusions and mild central vascular congestion now felt present.
[2017-05-05 12:10] LABS: Basophils # (A) 0.1 k/uL (0-0.2); Basophils % (A) 1 %; CH 28.4; CHCM 30.5; Eosinophils # (A) 0.2 k/uL (0-0.7); Eosinophils % (A) 2 %; HCT 35.5 % (39.0-53.0); HGB 10.8 gm/dL (13.0-17.5); Hypochromasia Moderate; Luc # (Auto) 0.23; Luc % (Auto) 1; Lymphocytes % (A) 6 %; MCH 28.5 pg (25.0-35.0); MCHC 30.4 g/dL (31.0-37.0); MCV 93.7 fL (80.0-100.0); Mean Platelet Volume 7.7; Monocytes # (A) 0.9 k/uL (0-1.0); Monocytes % (A) 6 %; Neutrophils # (A) 13.7 k/uL (1.3-7.7); Neutrophils % (A) 85 %; RBC 3.79 m/uL (4.30-5.90); WBC 16.2 k/uL (3.8-10.6); WBC (Perox) 17.08
[2017-05-05 12:33] LABS: Glucose,Whole Blood 71 mg/dL (75-99)
[2017-05-05] MEDS: CEFUROXIME 250 MG TAB PO SCH ×2 (12:34→22:54)
[2017-05-05] MEDS: SILVER sulfADIAZINE Cream 400 GM 1 APPLIC APPLIC TOPICAL SCH ×2 (14:16→22:54)
[2017-05-05 15:51] LABS: Calcium 8.6 mg/dL (8.4-10.2); Potassium 5.3 mmol/L (3.5-5.1)
[2017-05-05 17:12] LABS: Glucose,Whole Blood 117 mg/dL (75-99)
[2017-05-05] MEDS: traMADol 50 MG TAB PO PRN (17:43)
[2017-05-05 21:33] LABS: Glucose,Whole Blood 139 mg/dL (75-99)
[2017-05-06] MEDS ORDERED: VANCOMYCIN TROUGH DUE 1 EACH MISC MISCELLANE ONE (02:00)
[2017-05-06] MEDS: VANCOMYCIN 2,250 MG in SODIUM CHLORIDE 0.9% 500 ML IVPB SCH (03:08)
[2017-05-06] MEDS: HYDROcodone/APAP 5-325MG 1 EACH TAB PO PRN ×4 (03:13→15:46)
[2017-05-06] MEDS: LEVOTHYROXINE 75 MCG TAB PO SCH (07:03)
[2017-05-06] MEDS: LEVOTHYROXINE 100 MCG TAB PO SCH (07:03)
[2017-05-06 07:12] LABS: Glucose,Whole Blood 79 mg/dL (75-99)
[2017-05-06] MEDS: INSULIN LISPRO (humaLOG) 300 UNIT/3 ML VIAL SQ SCH ×4 (07:44→21:13)
[2017-05-06] MEDS: ATORVASTATIN 80 MG TAB PO SCH (08:43)
[2017-05-06] MEDS: METOPROLOL TARTRATE 50 MG TAB PO SCH ×3 (08:43→21:12)
[2017-05-06] MEDS: FUROSEMIDE 20 MG TAB PO SCH (08:43)
[2017-05-06] MEDS: CEFUROXIME 250 MG TAB PO SCH ×2 (08:43→20:33)
[2017-05-06] MEDS: RIVAROXABAN 10 MG TAB PO SCH (08:44)
[2017-05-06 09:02] LABS: CH 28.3; CHCM 30.7; HCT 31.3 % (39.0-53.0); HDW 2.82; HGB 9.6 gm/dL (13.0-17.5); Hypochromasia Moderate; MCH 28.3 pg (25.0-35.0); MCHC 30.5 g/dL (31.0-37.0); MCV 92.9 fL (80.0-100.0); Mean Platelet Volume 7.8; RBC 3.37 m/uL (4.30-5.90); RDW 14.9 % (11.5-15.5); WBC 16.7 k/uL (3.8-10.6)
[2017-05-06 09:16] LABS: Anion Gap 7 mmol/L; Blood Urea Nitrogen 34 mg/dL (9-20); Calcium 8.3 mg/dL (8.4-10.2); Carbon Dioxide 32 mmol/L (22-30); Chloride 95 mmol/L (98-107); Glucose 98 mg/dL (74-99); Non-African American GFR(MDRD) 51 (>60 ml/min/1.73 sqM); Potassium 5.2 mmol/L (3.5-5.1); Sodium 134 mmol/L (137-145)
[2017-05-06] MEDS: SILVER sulfADIAZINE Cream 400 GM 1 APPLIC APPLIC TOPICAL SCH ×2 (10:38→20:38)
[2017-05-06 12:01] LABS: Glucose,Whole Blood 77 mg/dL (75-99)
--- NOTE | 2017-05-06 12:48 | P.PN ---
Subjective Principal diagnosis: This is cellulitis left leg, with significant fluid retention improving. Patient currently weighs 187 kg . Sed rate is within normal limits, uric acid is within normal limits. Will repeat blood culture urine culture and sputum culture if obtainable repeat chest x-ray, to assess why white count has elevated. Hgb A1c was recently noted to be 6.0. We'll also increase Lasix to 60 daily orally to improve her diuresis, as well as correct potassium. Weight today 186 kg down from yesterday. White count is down to 16.7 macerated as well we'll continue to observe. 71-year-old male who gives a history of a cat scratch to his left lower leg at the lateral ankle 2 months ago he has been been experiencing ongoing problems with cellulitis patient has been treated by my partner Dr. Mojica in outpatient setting patient has had multiple oral antibiotics, was not able to remember what it was. He has had some improvement. Patient has been on Zosyn and vancomycin IV piggyback and has been steadily improving blood sugars been running in the low 100s hemoglobin A1c was 6. He is currently afebrile Objective - Vital Signs Vital signs: Vital Signs Temp 97.7 F 05/06/17 07:00 Pulse 121 H 05/06/17 07:00 Resp 22 05/06/17 07:00 BP 119/57 05/06/17 07:00 Pulse Ox 91 L 05/06/17 07:00 Intake & Output 05/05/17 05/06/17 05/06/17 18:59 06:59 18:59 Output Total 178 325 200 Balance -178 -325 -200 Weight 187 kg 186 kg Output: Urine 175 325 200 Stool 3 Other: Voiding Method Urinal # Voids 3 1 - Exam General: [Patient awake, alert and oriented times 3. Patient in no acute distress.] Morbidly obese HEENT: [PERRL. EOMI. No pharyngeal erythema or exudate.] Neck: [No adenopathy.] Cardiac: [Heart regular in rate and rhythm. No S3. No S4. No clicks, rubs. No murmur.] Lungs: [Clear to auscultation bilaterally.] Abdomen: [No mass. No organomegaly. Bowel sounds presnt and normoactive in all 4 quadrants.] Extremes: 3+ pedal edema to the left lower extreme 1+ to the right. There is erythema on the left flank extending from the foot up into the groin area which has been warm to touch and edematous. To the pretibial area area there are wounds currently without drainage. The right lower extreme there is erythema which is warm to the mid pretibial area, however the erythema is reducing significantly. Edema in bilateral lower extremes shows improvement : [] Musculoskeletal: [No joint erythema, edema or tenderness.] Skin: [No rash.] Neurologic: [No lateralizing deficits. CN II - XII grossly intact.] Lymphatic: [No adenopathy.] - Labs CBC & Chem 7: 05/06/17 08:32 05/06/17 08:32 Labs: Abnormal Lab Results - Last 24 Hours (Table) 05/05/17 05/05/17 05/05/17 Range/Units 11:41 12:26 17:08 WBC (3.8-10.6) k/uL RBC (4.30-5.90) m/uL Hgb (13.0-17.5) gm/dL Hct (39.0-53.0) % MCHC (31.0-37.0) g/dL Sodium 134 L (137-145) mmol/L Potassium 5.3 H (3.5-5.1) mmol/L Chloride 96 L (98-107) mmol/L Carbon Dioxide (22-30) mmol/L BUN 34 H (9-20) mg/dL Creatinine 1.50 H (0.66-1.25) mg/dL POC Glucose (mg/dL) 71 L 117 H (75-99) mg/dL Calcium (8.4-10.2) mg/dL 05/05/17 05/06/17 05/06/17 Range/Units 21:31 08:32 08:32 WBC 16.7 H (3.8-10.6) k/uL RBC 3.37 L (4.30-5.90) m/uL Hgb 9.6 L (13.0-17.5) gm/dL Hct 31.3 L (39.0-53.0) % MCHC 30.5 L (31.0-37.0) g/dL Sodium 134 L (137-145) mmol/L Potassium 5.2 H (3.5-5.1) mmol/L Chloride 95 L (98-107) mmol/L Carbon Dioxide 32 H (22-30) mmol/L BUN 34 H (9-20) mg/dL Creatinine 1.39 H (0.66-1.25) mg/dL POC Glucose (mg/dL) 139 H (75-99) mg/dL Calcium 8.3 L (8.4-10.2) mg/dL Microbiology - Last 24 Hours (Table) 05/05/17 13:44 Urine Culture - Preliminary Urine,Voided Assessment and Plan (1) Cellulitis Narrative/Plan: 71-year-old male with significant difficulties with significant edema related to volume overload from vascular disease, he is feeling much better at this time currently afebrile overall improved edema has not improved significantly, erythema is significantly improving, BUN/creatinine are improving, cultures currently negative anticipate transitioning patient to oral antibiotics will continue with Silvadene wraps for comfort Status: Acute (2) Diabetes Narrative/Plan: Currently well-controlled hemoglobin A1c was 6.0 Status: Acute Plan: Patient is currently afebrile, however his white count increased from 15,000-17, 000 overnight, ordered blood cultures urine culture and sputum culture will get chest x-ray. Also patient's potassium increased to 5.6 and believe will increase Lasix to 60 mg orally also will change to cefuroxime axetil 500 mg twice daily We'll stop IV Zosyn, continue Vanco for now we will reevaluate tomorrow
[2017-05-06 17:07] LABS: Glucose,Whole Blood 76 mg/dL (75-99)
[2017-05-06 20:50] LABS: Glucose,Whole Blood 120 mg/dL (75-99)
[2017-05-07] MEDS: HYDROcodone/APAP 5-325MG 1 EACH TAB PO PRN ×4 (03:23→21:19)
[2017-05-07] MEDS: LEVOTHYROXINE 100 MCG TAB PO SCH (06:59)
[2017-05-07] MEDS: LEVOTHYROXINE 75 MCG TAB PO SCH (06:59)
[2017-05-07 07:18] LABS: Glucose,Whole Blood 90 mg/dL (75-99)
[2017-05-07] MEDS: INSULIN LISPRO (humaLOG) 300 UNIT/3 ML VIAL SQ SCH ×4 (07:52→21:20)
[2017-05-07] MEDS: ATORVASTATIN 80 MG TAB PO SCH (09:13)
[2017-05-07] MEDS: CEFUROXIME 250 MG TAB PO SCH ×2 (09:14→20:00)
[2017-05-07] MEDS: FUROSEMIDE 20 MG TAB PO SCH (09:14)
[2017-05-07] MEDS: SILVER sulfADIAZINE Cream 400 GM 1 APPLIC APPLIC TOPICAL SCH ×2 (09:15→20:03)
[2017-05-07] MEDS: METOPROLOL TARTRATE 50 MG TAB PO SCH ×3 (09:15→21:19)
[2017-05-07] MEDS: RIVAROXABAN 10 MG TAB PO SCH (09:15)
[2017-05-07 10:08] LABS: CH 28.4; CHCM 31.4; HDW 2.97; HGB 9.9 gm/dL (13.0-17.5); Hypochromasia Slight; MCV 90.7 fL (80.0-100.0); Mean Platelet Volume 7.6; RBC 3.42 m/uL (4.30-5.90); RDW 14.7 % (11.5-15.5)
[2017-05-07 10:28] LABS: Anion Gap 8 mmol/L; Blood Urea Nitrogen 33 mg/dL (9-20); Calcium 8.2 mg/dL (8.4-10.2); Carbon Dioxide 31 mmol/L (22-30); Chloride 95 mmol/L (98-107); Glucose 125 mg/dL (74-99); Non-African American GFR(MDRD) 55 (>60 ml/min/1.73 sqM); Potassium 5.1 mmol/L (3.5-5.1); Sodium 134 mmol/L (137-145)
[2017-05-07 12:31] LABS: Glucose,Whole Blood 110 mg/dL (75-99)
--- NOTE | 2017-05-07 13:26 | P.DS ---
Providers Date of admission: 04/23/17 16:08 Expected date of discharge: 05/07/17 Attending physician: Lucas Mojica Consults: 04/23/17 16:27 Consult Physician Stat Consulting Provider: Armando Stevenson Consult Reason/Comments: Cellulitis Do you want consulting provider notified?: Yes Consult Physician Stat Consulting Provider: [facility] Consult Reason/Comments: Pulmonary edema Do you want consulting provider notified?: Yes Primary care physician: Lucas Mojica Hospital Course: Final diagnosis Cellulitis left lower extremity Type 2 diabetes Hypertension. Hyperlipidemia. Coronary artery disease. Brox is mole atrial fibrillation. Long-term anticoagulation. Obstructive sleep apnea. GERD. Hypothyroidism The patient was admitted on April 23 for increased redness that started suddenly to his left lower extremity. He had a wound there that I was treating in the office. He was on topical medication and a CircAid for compression. He stated the leg became suddenly red extending up the thigh. He had a fever. He is found to have leukocytosis in the emergency room. He was admitted and treated with IV antibiotics. Infectious disease consult was sought. He had remained febrile for several days and his leukocytosis slowly started to improve. Is placed on IV antibiotics and then changed to oral antibiotics. Patient Condition at Discharge: Fair Plan - Discharge Summary New Discharge Prescriptions: New Cephalexin [Keflex] 500 mg PO Q6HR #40 cap Cefuroxime Axetil [Ceftin] 500 mg PO BID #20 tab Cefuroxime [Ceftin] 500 mg PO BID #28 tab Furosemide [Lasix] 60 mg PO DAILY tab HYDROcodone/APAP 5-325MG [[place] 5-325] 1 each PO Q6HR PRN tab PRN Reason: Pain HYDROcodone/APAP 5-325MG [[place] 5-325] 2 each PO Q6HR PRN tab PRN Reason: Pain SILVER sulfADIAZINE Cream [Silvadene Cream] 1 applic TOPICAL BID dose Continue Atorvastatin [Lipitor] 80 mg PO QAM Flaxseed Oil [[place]-3 Flaxseed Oil] 1,000 mg PO QAM Fish Oil/Dha/Epa [Fish Oil 1,200 mg Fish Oil] 1 cap PO QAM Rivaroxaban [Xarelto] 20 mg PO QAM Levothyroxine Sodium [Synthroid] 175 mcg PO QAM Metoprolol Tartrate [Lopressor] 50 mg PO BID glipiZIDE XL [Glucotrol XL] 5 mg PO QAM Losartan [Cozaar] 50 mg PO BID tab Furosemide [Lasix] 10 mg PO DAILY@1200 Spironolactone [Aldactone] 25 mg PO DAILY@1200 diphenhydrAMINE HCL [Benadryl] 25 mg PO Q4H PRN PRN Reason: Hives predniSONE 10 mg PO BID PRN PRN Reason: Hives traMADol HCL [Ultram] 50 mg PO TID PRN PRN Reason: Pain Nitroglycerin Sl Tabs [Nitrostat] 0.4 mg SUBLINGUAL Q5M PRN PRN Reason: Angina Albuterol Inhaler [Ventolin Hfa Inhaler] 1 - 2 puff INHALATION RT-Q6H PRN PRN Reason: Dyspnea Discharge Medication List Atorvastatin [Lipitor] 80 mg PO QAM 04/07/14 [History] Fish Oil/Dha/Epa [Fish Oil 1,200 mg Fish Oil] 1 cap PO QAM 08/18/16 [History] Flaxseed Oil [[place]-3 Flaxseed Oil] 1,000 mg PO QAM 08/18/16 [History] Levothyroxine Sodium [Synthroid] 175 mcg PO QAM 08/18/16 [History] Rivaroxaban [Xarelto] 20 mg PO QAM 08/18/16 [History] Metoprolol Tartrate [Lopressor] 50 mg PO BID 12/18/16 [History] glipiZIDE XL [Glucotrol XL] 5 mg PO QAM 12/18/16 [History] Losartan [Cozaar] 50 mg PO BID tab 12/22/16 [Rx] Albuterol Inhaler [Ventolin Hfa Inhaler] 1 - 2 puff INHALATION RT-Q6H PRN [History] Furosemide [Lasix] 10 mg PO DAILY@1200 04/23/17 [History] Nitroglycerin Sl Tabs [Nitrostat] 0.4 mg SUBLINGUAL Q5M PRN 04/23/17 [History] Spironolactone [Aldactone] 25 mg PO DAILY@1200 04/23/17 [History] diphenhydrAMINE HCL [Benadryl] 25 mg PO Q4H PRN 04/23/17 [History] predniSONE 10 mg PO BID PRN 04/23/17 [History] traMADol HCL [Ultram] 50 mg PO TID PRN 04/23/17 [History] Cephalexin [Keflex] 500 mg PO Q6HR #40 cap 04/26/17 [Rx] Cefuroxime Axetil [Ceftin] 500 mg PO BID #20 tab 05/04/17 [Rx] Cefuroxime [Ceftin] 500 mg PO BID #28 tab 05/07/17 [Rx] Furosemide [Lasix] 60 mg PO DAILY tab 05/07/17 [Rx] HYDROcodone/APAP 5-325MG [[place] 5-325] 1 each PO Q6HR PRN tab 05/07/17 [Rx] HYDROcodone/APAP 5-325MG [[place] 5-325] 2 each PO Q6HR PRN tab 05/07/17 [Rx] SILVER sulfADIAZINE Cream [Silvadene Cream] 1 applic TOPICAL BID dose 05/07/17 [Rx] Follow up Appointment(s)/Referral(s): Jean Srinivasan MD [STAFF PHYSICIAN] - 4 Weeks Lucas Mojica MD [Primary Care Provider] - 1-2 days Patient Instructions/Handouts: Heart Failure (DC), Type 2 Diabetes in Adults ( DC) Discharge Disposition: HOME SELF-CARE
[2017-05-07] MEDS: diphenhydrAMINE 25 MG CAP PO PRN ×2 (13:39→19:59)
[2017-05-07] MEDS: VANCOMYCIN 2,250 MG in SODIUM CHLORIDE 0.9% 500 ML IVPB SCH (14:34)
[2017-05-07 17:43] LABS: Glucose,Whole Blood 84 mg/dL (75-99)
--- NOTE | 2017-05-07 20:23 | P.PN ---
Subjective Principal diagnosis: cellulitis left leg This is a 71-year-old male who gives history that he had a cat scratch to his left lower leg at the lateral ankle area 2 months ago and he has had ongoing problems with cellulitis. Patient states he has been treated by Dr. Mojica in the outpatient setting and has had oral antibiotics. He does not recall the name of the antibiotic. He states he did have some improvement but yesterday he had sudden onset of redness and swelling and went up into his thigh area and also developed fevers. Patient presented to [facility] emergency center with the above. His white count was 11.6, temperature 101.5. BUN is currently 34 with a creatinine of 1.46 with GFR of 48. Urinalysis was nitrate and leukoesterase negative and urine culture is in process. Blood culture is status received. He had a chest x-ray that showed cardiomegaly with mild heart failure with increased heart size. He did have a recent CTA of the abdominal aorta on April 11 as an outpatient ordered by Dr. Srinivasan which showed ascites adjacent to the liver and spleen. Pancreas was atrophic. Vascular calcifications within the aorta. Inferior vena cava is unremarkable. Most of the bowel unremarkable. 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 The anterior and posterior tibial arteries appear to be present and patent bilaterally although delineation of the origins can not be evaluated with hardening artifact at the level of the bilateral knees. Patient has been started on Zosyn and vancomycin and states that he is improved but some mild increase of redness just distal to the knee. But the foot and lower leg have definitely improved. Redness on the 5 also improved. He does not recall when his tetanus was last updated. He states that his shortness of breath is at his baseline. He is currently on IV Lasix with good urine output. He states his blood sugar has been running in the low 100s at home. hemoglobin A1c was 6. Now showing some improvement temp 98.1 The cellulitis of the limb is improved. The redness that is ascended the medial aspect of the thigh is improved. The redness and swelling at the top aspect of the calf is also much improved. Still has some mild leukocytosis. He is profoundly weak. We'll need to go to rehab for therapy. Plan cefuroxime for 10 days after discharge. Objective - Vital Signs Vital signs: Vital Signs Temp 97.3 F L 05/07/17 14:58 Pulse 81 05/07/17 14:58 Resp 16 05/07/17 14:58 BP 108/47 05/07/17 14:58 Pulse Ox 98 05/07/17 14:58 Intake & Output 05/07/17 05/07/17 05/08/17 06:59 18:59 06:59 Intake Total 400 Output Total 950 325 Balance -550 -325 Weight 189 kg Intake: Oral 400 Output: Urine 950 325 Other: Voiding Method Urinal Urinal - Labs CBC & Chem 7: 05/07/17 09:37 05/07/17 09:37 Labs: Abnormal Lab Results - Last 24 Hours (Table) 05/06/17 05/07/17 05/07/17 Range/Units 20:45 09:37 09:37 WBC 16.0 H (3.8-10.6) k/uL RBC 3.42 L (4.30-5.90) m/uL Hgb 9.9 L (13.0-17.5) gm/dL Hct 31.0 L (39.0-53.0) % Sodium 134 L (137-145) mmol/L Chloride 95 L (98-107) mmol/L Carbon Dioxide 31 H (22-30) mmol/L BUN 33 H (9-20) mg/dL Creatinine 1.29 H (0.66-1.25) mg/dL Glucose 125 H (74-99) mg/dL POC Glucose (mg/dL) 120 H (75-99) mg/dL Calcium 8.2 L (8.4-10.2) mg/dL 05/07/17 Range/Units 12:29 WBC (3.8-10.6) k/uL RBC (4.30-5.90) m/uL Hgb (13.0-17.5) gm/dL Hct (39.0-53.0) % Sodium (137-145) mmol/L Chloride (98-107) mmol/L Carbon Dioxide (22-30) mmol/L BUN (9-20) mg/dL Creatinine (0.66-1.25) mg/dL Glucose (74-99) mg/dL POC Glucose (mg/dL) 110 H (75-99) mg/dL Calcium (8.4-10.2) mg/dL Microbiology - Last 24 Hours (Table) 05/05/17 11:41 Blood Culture - Preliminary Blood No Growth after 48 hours 05/05/17 13:44 Urine Culture - Final Urine,Voided Assessment and Plan (1) Cellulitis Status: Acute
[2017-05-07 20:58] LABS: Glucose,Whole Blood 106 mg/dL (75-99)
[2017-05-08] MEDS: LEVOTHYROXINE 75 MCG TAB PO SCH (06:44)
[2017-05-08] MEDS: LEVOTHYROXINE 100 MCG TAB PO SCH (06:44)
[2017-05-08] MEDS: diphenhydrAMINE 25 MG CAP PO PRN (06:46)
[2017-05-08] MEDS: HYDROcodone/APAP 5-325MG 1 EACH TAB PO PRN ×2 (06:46→15:15)
[2017-05-08 07:42] LABS: Glucose,Whole Blood 93 mg/dL (75-99)
[2017-05-08] MEDS: INSULIN LISPRO (humaLOG) 300 UNIT/3 ML VIAL SQ SCH ×2 (08:23→14:12)
[2017-05-08] MEDS: CEFUROXIME 250 MG TAB PO SCH (08:51)
[2017-05-08] MEDS: ATORVASTATIN 80 MG TAB PO SCH (08:51)
[2017-05-08] MEDS: FUROSEMIDE 20 MG TAB PO SCH (08:51)
[2017-05-08] MEDS: SILVER sulfADIAZINE Cream 400 GM 1 APPLIC APPLIC TOPICAL SCH (08:52)
[2017-05-08] MEDS: METOPROLOL TARTRATE 50 MG TAB PO SCH ×2 (08:52→15:16)
[2017-05-08] MEDS: RIVAROXABAN 10 MG TAB PO SCH (08:52)
--- NOTE | 2017-05-08 10:03 | P.PN ---
Subjective The patient is profoundly weak. He not had physical therapy while he was here, and mostly remained bedridden. Upon our plan discharge, he felt too weak to go home with home physical therapy and his 's care. He would like to go to rehabilitation. [facility] [place] is planned. Objective - Vital Signs Vital signs: Vital Signs Temp 99.9 F H 05/08/17 07:00 Pulse 103 H 05/08/17 07:00 Resp 22 05/08/17 07:00 BP 106/52 05/08/17 07:00 Pulse Ox 90 L 05/08/17 07:00 Intake & Output 05/07/17 05/08/17 05/08/17 18:59 06:59 18:59 Intake Total 900 Output Total 325 Balance -325 900 Weight 189.5 kg Intake: Oral 900 Output: Urine 325 Other: Voiding Method Urinal Urinal # Voids 3 - Exam General appearance: Patient is sitting in bed, he has Robbi wraps bilateral lower extremities for edema control. His wound was examined yesterday. It is resolved. There is no erythema the lower extremity. He indicates he is using a walker currently for ambulation becomes very short of breath after only 10-15 feet. - Labs CBC & Chem 7: 05/07/17 09:37 05/07/17 09:37 Labs: Abnormal Lab Results - Last 24 Hours (Table) 05/07/17 05/07/17 05/07/17 Range/Units 09:37 09:37 12:29 WBC 16.0 H (3.8-10.6) k/uL RBC 3.42 L (4.30-5.90) m/uL Hgb 9.9 L (13.0-17.5) gm/dL Hct 31.0 L (39.0-53.0) % Sodium 134 L (137-145) mmol/L Chloride 95 L (98-107) mmol/L Carbon Dioxide 31 H (22-30) mmol/L BUN 33 H (9-20) mg/dL Creatinine 1.29 H (0.66-1.25) mg/dL Glucose 125 H (74-99) mg/dL POC Glucose (mg/dL) 110 H (75-99) mg/dL Calcium 8.2 L (8.4-10.2) mg/dL 06/12/17 Range/Units 20:54 WBC (3.8-10.6) k/uL RBC (4.30-5.90) m/uL Hgb (13.0-17.5) gm/dL Hct (39.0-53.0) % Sodium (137-145) mmol/L Chloride (98-107) mmol/L Carbon Dioxide (22-30) mmol/L BUN (9-20) mg/dL Creatinine (0.66-1.25) mg/dL Glucose (74-99) mg/dL POC Glucose (mg/dL) 106 H (75-99) mg/dL Calcium (8.4-10.2) mg/dL Microbiology - Last 24 Hours (Table) 05/05/17 11:41 Blood Culture - Preliminary Blood No Growth after 48 hours Assessment and Plan Plan: Impression and plan Medical debility after hospitalization Cellulitis left lower extremity Type 2 diabetes Hypertension. Hyperlipidemia. Coronary artery disease. Brox is mole atrial fibrillation. Long-term anticoagulation. Obstructive sleep apnea. GERD. Hypothyroidism Will be evaluated by physical therapy, he will remain on cefuroxime for [address] Stevenson. He will go to [facility] for his medical debility. We'll reevaluate him there.
[2017-05-08 12:23] LABS: Glucose,Whole Blood 75 mg/dL (75-99)
[2017-05-08 16:26] VITALS: BP 121/64; PULSE 89; RESP 16; TEMP 97.4
== END 2017-05-08 15:34 | DRG 871 ==
LOC: EC 13:52 → 6SEL 16:08 → 4MS4W 04-27 17:55
PROVIDERS: ADMIT Family Medicine; ATTEND Family Medicine
PROC: 3E0234Z Introduction of Serum, Toxoid and Vaccine into Muscle, Percutaneous Approach (ICD-10-PCS; principal; 2017-04-24)
DX: A41.9 Sepsis, unspecified organism (principal); I50.33 Acute on chronic diastolic (congestive) heart failure; I47.2 Ventricular tachycardia; N17.9 Acute kidney failure, unspecified; Z68.42 Body mass index [BMI] 45.0-49.9, adult; I48.1 Persistent atrial fibrillation; D69.6 Thrombocytopenia, unspecified; L03.115 Cellulitis of right lower limb; L03.116 Cellulitis of left lower limb; E66.01 Morbid (severe) obesity due to excess calories; Z23 Encounter for immunization; I11.0 Hypertensive heart disease with heart failure; E87.5 Hyperkalemia; R65.20 Severe sepsis without septic shock; D64.9 Anemia, unspecified; E11.9 Type 2 diabetes mellitus without complications; I49.3 Ventricular premature depolarization; I73.9 Peripheral vascular disease, unspecified; I25.10 Atherosclerotic heart disease of native coronary artery without angina pectoris; K21.9 Gastro-esophageal reflux disease without esophagitis; E78.5 Hyperlipidemia, unspecified; G47.33 Obstructive sleep apnea (adult) (pediatric); F41.9 Anxiety disorder, unspecified; G43.909 Migraine, unspecified, not intractable, without status migrainosus; K59.09 Other constipation; E03.9 Hypothyroidism, unspecified; Z87.891 Personal history of nicotine dependence; Z96.653 Presence of artificial knee joint, bilateral; Z95.5 Presence of coronary angioplasty implant and graft; Z86.14 Personal history of Methicillin resistant Staphylococcus aureus infection; Z79.01 Long term (current) use of anticoagulants; Z79.84 Long term (current) use of oral hypoglycemic drugs; Z79.51 Long term (current) use of inhaled steroids; Z79.899 Other long term (current) drug therapy; Z88.5 Allergy status to narcotic agent; Z88.8 Allergy status to other drugs, medicaments and biological substances; Z88.9 Allergy status to unspecified drugs, medicaments and biological substances; Z91.040 Latex allergy status; Z91.011 Allergy to milk products; W55.03XA Scratched by cat, initial encounter
CPT/HCPCS: 36415; 71020; 80048; 80053; 80202; 81001; 82565; 83036; 83605; 83735; 83880; 84550; 85025; 85027; 85610; 85652; 85730; 87040; 87086; 90715; 93005; 94760; 96365; 96366; 96375; 99285

== ENCOUNTER → 2017-06-14 | Outpatient (CLI) | payer MEDICARE, BC ==
--- NOTE | 2017-06-14 13:35 | FL ---
EXAMINATION TYPE: FL barium swallow w video DATE OF EXAM: 06/14/2017 COMPARISON: NONE HISTORY: Dysphasia TECHNIQUE: Fluoroscopy. FINDINGS: Fluoroscopic guidance was provided for the procedure performed in conjunction with the [facility] pathology department. Please see complete report forthcoming from the Speech Pathology departmen t. Various consistencies from thin liquid to solids were administered. No aspiration was evident. Transient penetration may been present with large thin liquid swallowing. No significant pooling was observed in the vallecula. There was normal propulsion of the bolus. IMPRESSION: 1. No aspiration or significant penetration.
== END | disposition home or self-care (01) ==
LOC: RADFLMAIN 11:01
PROVIDERS: ATTEND Family Medicine
DX: R47.02 Dysphasia (principal)
CPT/HCPCS: 74230

== ENCOUNTER → 2018-01-12 | Outpatient (CLI) | payer MEDICARE, BC ==
[2018-01-12 11:13] LABS: Anion Gap 11 mmol/L; Blood Urea Nitrogen 52 mg/dL (9-20); Calcium 9.9 mg/dL (8.4-10.2); Carbon Dioxide 31 mmol/L (22-30); Chloride 102 mmol/L (98-107); Glucose 157 mg/dL (74-99); Magnesium 2.2 mg/dL (1.6-2.3); Potassium 4.8 mmol/L (3.5-5.1); Sodium 144 mmol/L (137-145)
== END | disposition home or self-care (01) ==
LOC: LABWHC1 10:02
PROVIDERS: ATTEND Family Medicine
DX: E03.9 Hypothyroidism, unspecified (principal); E87.5 Hyperkalemia; R42 Dizziness and giddiness; R47.02 Dysphasia
CPT/HCPCS: 36415; 80048; 83735; 84439; 84443

== ENCOUNTER 2018-01-31 11:34 | Emergency (ER) | payer MEDICARE, BC ==
--- NOTE | 2018-01-31 12:33 | ED ---
Fall HPI - General Chief Complaint: Fall Stated Complaint: SYNCOPE, HEAD INJURY, FALL FROM STOOL Time Seen by Provider: 01/31/18 12:15 Source: patient, family, old records reviewed Mode of arrival: wheelchair - History of Present Illness Initial Comments: This is a 72-year-old male with a history of A. fib PVCs cellulitis who states he was shoveling snow prior to admission when he felt like he might pass out he felt woozy and she did fall and was unresponsive for about 20 seconds. He did hit the back of his head against a stool and concrete. He responded quickly per his complains of left-sided occipital parietal scalp pain no neck pain no chest back pain he denies any palpitations chest pain shortness of breath fevers chills sweats loss of function to his upper or lower extremities. MD Complaint: fall - Related Data Home Medications Medication Instructions Recorded Confirmed Atorvastatin [Lipitor] 80 mg PO DAILY@1200 04/07/14 01/31/18 Fish Oil/Dha/Epa [Fish Oil 1,200 1 cap PO QA 08/18/16 01/31/18 mg Fish Oil] Flaxseed Oil [[place]-3 Flaxseed Oil] 1,000 mg PO QAM 08/18/16 01/31/18 Levothyroxine Sodium [Synthroid] 175 mcg PO QAM 08/18/16 01/31/18 Rivaroxaban [Xarelto] 20 mg PO DAILY@1200 08/18/16 01/31/18 Metoprolol Tartrate [Lopressor] 50 mg PO BID 12/18/16 01/31/18 glipiZIDE XL [Glucotrol XL] 5 mg PO QAM 12/18/16 01/31/18 Spironolactone [Aldactone] 25 mg PO DAILY@1200 04/23/17 01/31/18 Nitroglycerin Sl Tabs [Nitrostat] 0.4 mg SUBLINGUAL Q5M PRN 01/31/18 01/31/18 diphenhydrAMINE HCL [Benadryl] 25 mg PO Q4H PRN 01/31/18 01/31/18 Previous Rx's Medication Instructions Recorded Losartan [Cozaar] 50 mg PO BID tab 12/22/16 Furosemide [Lasix] 60 mg PO DAILY tab 05/07/17 Furosemide [Lasix] 40 mg PO DAILY #7 tablet 01/31/18 Allergies Allergy/AdvReac Type Severity Reaction Status Date / Time metformin HCl Allergy Unknown Rash/Hives Verified 01/31/18 12:39 [From Glucophage] adhesive tape Allergy Rash/Hives Verified 01/31/18 12:39 banana [Banana] Allergy Rash/Hives Verified 01/31/18 12:39 cheese Allergy Rash/Hives Verified 01/31/18 12:39 codeine Allergy Rash/Hives Verified 01/31/18 12:39 latex Allergy Rash/Hives Verified 01/31/18 12:39 NSAIDS (Non-Steroidal Allergy Rash/Hives Verified 01/31/18 12:39 Anti-Inflamma dofetilide [From Tikosyn] AdvReac Severe Torsades Verified 01/31/18 12:39 de Pointes YOGURT AdvReac Itching Uncoded 09/19/16 08:10 Review of Systems ROS Statement: Those systems with pertinent positive or pertinent negative responses have been documented in the HPI. ROS Other: All systems not noted in ROS Statement are negative. Past Medical History Past Medical History: Atrial Fibrillation, Coronary Artery Disease (CAD), Heart Failure, Diabetes Mellitus, GERD/Reflux, Hyperlipidemia, Hypertension, Sleep Apnea/CPAP/BIPAP, Thyroid Disorder Additional Past Medical History / Comment(s): NIDDM type II, PVC,s, SOB, chronic constipation, edema lower legs, thin skin on lower legs, bilateral lower leg cellulitis-several times, migraines, sinus problems, recent URI with ABX and steroids, History of Any Multi-Drug Resistant Organisms: MRSA Date of last positivie culture/infection: 08/2014 MDRO Source:: lower leg Past Surgical History: Heart Catheterization With Stent, Joint Replacement, Orthopedic Surgery Additional Past Surgical History / Comment(s): MERVIN, CARDIOVERSIONS, DELROY knee replacement, R knee arthroscopy, delroy carotid endarterectomy Past Anesthesia/Blood Transfusion Reactions: No Reported Reaction, Postoperative Nausea & Vomiting (PONV) Additional Past Anesthesia/Blood Transfusion Reaction / Comment(s): . Date of Last Stent Placement:: 03/09/2014 Past Psychological History: Anxiety Smoking Status: Former smoker Past Alcohol Use History: None Reported Past Drug Use History: None Reported - Past Family History Mother Family Medical History: Congestive Heart Failure (CHF), Diabetes Mellitus, Deep Vein Thrombosis (DVT), Hypertension, Renal Disease Additional Family Medical History / Comment(s): Renal failure with dialysis Father Family Medical History: Cancer Additional Family Medical History / Comment(s): melanoma. Father is 95 yrs old. General Exam - General Exam Comments Initial Comments: This is a well-developed well-nourished awake alert oriented 3 male he does demonstrate a [place] Coma Scale of 15 Limitations: no limitations General appearance: alert, in no apparent distress Head exam: Present: normocephalic, other (Tenderness palpation a contusion/ hematoma noted over the left parietal occipital scalp no step-off or crepitation no open wounds or require repair.) Eye exam: Present: normal appearance, PERRL, EOMI. Absent: scleral icterus, conjunctival injection, periorbital swelling ENT exam: Present: normal exam, mucous membranes moist Neck exam: Present: normal inspection. Absent: tenderness, meningismus, lymphadenopathy Respiratory exam: Present: normal lung sounds bilaterally. Absent: respiratory distress, wheezes, rales, rhonchi, stridor Cardiovascular Exam: Present: regular rate, normal rhythm, normal heart sounds. Absent: systolic murmur, diastolic murmur, rubs, gallop, clicks GI/Abdominal exam: Present: soft, normal bowel sounds. Absent: distended, tenderness, guarding, rebound, rigid Extremities exam: Present: full ROM, normal capillary refill, other (Stasis dermatitis with some edema noted). Absent: tenderness, pedal edema, joint swelling, calf tenderness Back exam: Present: normal inspection Neurological exam: Present: alert, oriented X3, CN II-XII intact Psychiatric exam: Present: normal affect, normal mood Skin exam: Present: warm, dry, intact, normal color. Absent: rash Course Vital Signs 01/31/18 01/31/18 12:41 15:00 Pulse Rate 69 84 Respiratory 16 18 Rate Blood Pressure 157/74 O2 Sat by Pulse 97 96 Oximetry Medical Decision Making - Medical Decision Making I did reevaluate patient several occasions he is feeling much improved he is able ably without difficulty. He does demonstrate chronic renal insufficiency and some hyperkalemia 5.6. Patient is on spironolactone at this time I did discuss the case with Dr. Mojica. Patient will be discharged with instructions to use Lasix for the next few days in [place] of the spironolactone he is follow-up in the office return when necessary today caution him about no more so - Lab Data Result diagrams: 01/31/18 12:50 01/31/18 12:50 Lab Results 01/31/18 01/31/18 01/31/18 Range/Units 12:50 12:50 12:50 WBC 7.9 (3.8-10.6) k/uL RBC 4.50 (4.30-5.90) m/uL Hgb 13.4 (13.0-17.5) gm/dL Hct 39.8 (39.0-53.0) % MCV 88.5 (80.0-100.0) fL MCH 29.8 (25.0-35.0) pg MCHC 33.7 (31.0-37.0) g/dL RDW 13.5 (11.5-15.5) % Plt Count 129 L (150-450) k/uL Neutrophils % 70 % Lymphocytes % 18 % Monocytes % 6 % Eosinophils % 4 % Basophils % 1 % Neutrophils # 5.5 (1.3-7.7) k/uL Lymphocytes # 1.4 (1.0-4.8) k/uL Monocytes # 0.4 (0-1.0) k/uL Eosinophils # 0.3 (0-0.7) k/uL Basophils # 0.0 (0-0.2) k/uL PT 11.1 (9.0-12.0) sec INR 1.2 H (<1.2) APTT 42.2 H (22.0-30.0) sec Sodium 145 (137-145) mmol/L Potassium 5.6 H (3.5-5.1) mmol/L Chloride 99 (98-107) mmol/L Carbon Dioxide 35 H (22-30) mmol/L Anion Gap 11 mmol/L BUN 57 H (9-20) mg/dL Creatinine 1.40 H (0.66-1.25) mg/dL Est GFR (CKD-EPI)AfAm 59 (>60 ml/min/1.73 sqM) Est GFR (CKD-EPI)NonAf 51 (>60 ml/min/1.73 sqM) Glucose 111 H (74-99) mg/dL Calcium 9.7 (8.4-10.2) mg/dL Magnesium 2.1 (1.6-2.3) mg/dL Total Bilirubin 0.8 (0.2-1.3) mg/dL AST 23 (17-59) U/L ALT 16 L (21-72) U/L Alkaline Phosphatase 87 (38-126) U/L Total Creatine Kinase (55-170) U/L CK-MB (CK-2) (0.0-2.4) ng/mL CK-MB (CK-2) Rel Index Troponin I (0.000-0.034) ng/mL Total Protein 8.2 (6.3-8.2) g/dL Albumin 4.5 (3.5-5.0) g/dL 01/31/18 Range/Units 12:50 WBC (3.8-10.6) k/uL RBC (4.30-5.90) m/uL Hgb (13.0-17.5) gm/dL Hct (39.0-53.0) % MCV (80.0-100.0) fL MCH (25.0-35.0) pg MCHC (31.0-37.0) g/dL RDW (11.5-15.5) % Plt Count (150-450) k/uL Neutrophils % % Lymphocytes % % Monocytes % % Eosinophils % % Basophils % % Neutrophils # (1.3-7.7) k/uL Lymphocytes # (1.0-4.8) k/uL Monocytes # (0-1.0) k/uL Eosinophils # (0-0.7) k/uL Basophils # (0-0.2) k/uL PT (9.0-12.0) sec INR (<1.2) APTT (22.0-30.0) sec Sodium (137-145) mmol/L Potassium (3.5-5.1) mmol/L Chloride (98-107) mmol/L Carbon Dioxide (22-30) mmol/L Anion Gap mmol/L BUN (9-20) mg/dL Creatinine (0.66-1.25) mg/dL Est GFR (CKD-EPI)AfAm (>60 ml/min/1.73 sqM) Est GFR (CKD-EPI)NonAf (>60 ml/min/1.73 sqM) Glucose (74-99) mg/dL Calcium (8.4-10.2) mg/dL Magnesium (1.6-2.3) mg/dL Total Bilirubin (0.2-1.3) mg/dL AST (17-59) U/L ALT (21-72) U/L Alkaline Phosphatase (38-126) U/L Total Creatine Kinase 56 (55-170) U/L CK-MB (CK-2) 1.3 (0.0-2.4) ng/mL CK-MB (CK-2) Rel Index 2.3 Troponin I <0.012 (0.000-0.034) ng/mL Total Protein (6.3-8.2) g/dL Albumin (3.5-5.0) g/dL - EKG Data -: EKG Interpreted by Me (Atrial fibrillation with premature ventricular contractions rate was 72 QRS) - Radiology Data Radiology results: report reviewed (I did review the imaging and reports there is evidence of a scalp hematoma no intracranial evidence of damage or pathology. Chest x-rays are unremarkable for acute processes), image reviewed Disposition Clinical Impression: Fall, Vasovagal near syncope, Scalp hematoma, Hyperkalemia, Chronic renal insufficiency Disposition: HOME SELF-CARE Condition: Good Instructions: Fall Prevention for Older Adults (ED), Hyperkalemia (ED), Scalp Contusion in Adults (ED), Hematoma (ED) Prescriptions: Furosemide [Lasix] 40 mg PO DAILY #7 tablet Referrals: Lucas Mojica MD [Primary Care Provider] - 1-2 days
[2018-01-31 13:13] LABS: Basophils % (A) 1 %; Eosinophils # (A) 0.3 k/uL (0-0.7); Eosinophils % (A) 4 %; HCT 39.8 % (39.0-53.0); HGB 13.4 gm/dL (13.0-17.5); Lymphocytes # (A) 1.4 k/uL (1.0-4.8); Lymphocytes % (A) 18 %; MCH 29.8 pg (25.0-35.0); MCHC 33.7 g/dL (31.0-37.0); MCV 88.5 fL (80.0-100.0); Mean Platelet Volume 8.1; Monocytes # (A) 0.4 k/uL (0-1.0); Monocytes % (A) 6 %; Neutrophils # (A) 5.5 k/uL (1.3-7.7); Neutrophils % (A) 70 %; Platelet Count 129 k/uL (150-450); RDW 13.5 % (11.5-15.5); WBC 7.9 k/uL (3.8-10.6)
[2018-01-31 13:17] LABS: Albumin 4.5 g/dL (3.5-5.0); Calcium 9.7 mg/dL (8.4-10.2); Potassium 5.6 mmol/L (3.5-5.1); Total Bilirubin 0.8 mg/dL (0.2-1.3); Total Protein 8.2 g/dL (6.3-8.2)
[2018-01-31 13:27] LABS: INR 1.2 (<1.2); Partial Thromboplastin Time 42.2 sec (22.0-30.0); Prothrombin Time 11.1 sec (9.0-12.0)
[2018-01-31 13:30] LABS: Creatine Kinase 56 U/L (55-170)
[2018-01-31 13:42] LABS: Creatine Kinase MB 1.3 ng/mL (0.0-2.4); Troponin I <0.012 ng/mL (0.000-0.034)
--- NOTE | 2018-01-31 13:49 | CT ---
EXAMINATION TYPE: CT brain wo con DATE OF EXAM: 01/31/2018 COMPARISON: NONE HISTORY: Syncope, head injury CT DLP: 1079.8 mGycm Automated exposure control for dose reduction was used. Helical acquisition through the brain FINDINGS: Inflammatory change present in the mastoid air cells on the right, right maxillary sinus. Cerebral va scular calcifications are present. Large cephalohematoma is present over the left parietal scalp. Arcenio varium is intact. No hemorrhage or hydrocephalus. Orbits show symmetric appearance. IMPRESSION: SINUS DISEASE, CORRELATE TO EXCLUDE MASTOIDITIS. LARGE CEPHALOHEMATOMA.
--- NOTE | 2018-01-31 14:13 | XR ---
EXAMINATION TYPE: XR chest 2V DATE OF EXAM: 01/31/2018 COMPARISON: Prior chest x-ray 05/05/2017 HISTORY: Cough and shortness of breath TECHNIQUE: Frontal and lateral views of the chest are obtained on 3 images. FINDINGS: The heart remains enlarged. Central vascularity is prominent. There is no evident pneumoth orax or pleural effusion. No focal airspace disease. Question mild prominence of interstitium. There are overlying cardiac leads. IMPRESSION: Findings may be due to pulmonary venous hypertension and interstitial edema. Correlate, follow-up recommended.
[2018-01-31 15:01] VITALS: PULSE 84; RESP 18
[2018-01-31 15:16] VITALS: BP 168/69
== END 2018-01-31 15:16 | disposition home or self-care (01) ==
LOC: EC 11:34
DX: S00.03XA Contusion of scalp, initial encounter (principal); R55 Syncope and collapse; E87.5 Hyperkalemia; E11.22 Type 2 diabetes mellitus with diabetic chronic kidney disease; I13.0 Hypertensive heart and chronic kidney disease with heart failure and stage 1 through stage 4 chronic kidney disease, or unspecified chronic kidney disease; N18.9 Chronic kidney disease, unspecified; I48.91 Unspecified atrial fibrillation; I25.10 Atherosclerotic heart disease of native coronary artery without angina pectoris; K21.9 Gastro-esophageal reflux disease without esophagitis; E78.5 Hyperlipidemia, unspecified; G47.30 Sleep apnea, unspecified; Z99.89 Dependence on other enabling machines and devices; E07.9 Disorder of thyroid, unspecified; F41.9 Anxiety disorder, unspecified; Z86.14 Personal history of Methicillin resistant Staphylococcus aureus infection; Z87.891 Personal history of nicotine dependence; Z79.01 Long term (current) use of anticoagulants; Z79.899 Other long term (current) drug therapy; Z79.84 Long term (current) use of oral hypoglycemic drugs; Z91.040 Latex allergy status; Z91.018 Allergy to other foods; Z88.6 Allergy status to analgesic agent; Z88.8 Allergy status to other drugs, medicaments and biological substances; W08.XXXA Fall from other furniture, initial encounter; Y92.009 Unspecified place in unspecified non-institutional (private) residence as the place of occurrence of the external cause
CPT/HCPCS: 36415; 70450; 71046; 80053; 82550; 82553; 83735; 84484; 85025; 85610; 85730; 93005; 99284